=== PATIENT | male | born 1945 | race Caucasian/White ===

== ENCOUNTER 2022-05-17 02:10 | Inpatient (IN) | payer OTHER, SELFPAY ==
[2022-05-17] VITALS (8 sets, daily range): BP systolic 132–159; BP diastolic 66–78; PULSE 82–104; RESP 16–18; TEMP 36.6–37.1; O2SAT 90–100; BMI 30.5; BMI 30.4
--- NOTE | 2022-05-17 02:57 | CT_ITS ---
STUDY: CT BRAIN WITHOUT CONTRAST REASON FOR EXAM: Male, 76 years old. Confusion RADIATION DOSAGE (If Supplied By Facility): CTDIvol = ( 44.99 ) mGy, DLP = ( 829.85 ) mGycm TECHNIQUE: Transaxial CT imaging of the brain was performed without administration of intravenous contrast material. Individualized dose optimization techniques were used for this CT. COMPARISON: No relevant priors. FINDINGS: Normal soft tissue structures. Normal calvarium. There is visualize calcification of the bilateral vertebral arteries. There is calcification of the bilateral cavernous carotid arteries. There is mild cerebral atrophy with widening of the extra-axial spaces and ventricular dilatation. There are areas of decreased attenuation within the white matter tracts of the supratentorial brain, consistent with microvascular disease changes. Normal basal ganglia and thalami. Normal brainstem. There is mild cerebellar atrophy. There is no intracranial hemorrhage. There are no findings of an acute ischemic infarction. Normal visualized paranasal sinuses. CT/Brain/Head without Contrast IMPRESSION: Mild atrophy. No visualized acute hemorrhage infarct or edema. Electronically Signed: Baylee Chang MD at 3:58 EST Reading Location ID and State: [facility] / [place] Tel , Service support ,
[2022-05-17 03:12] LABS: Absolute Neutrophil Count 2.5 X10^3/uL (2.0-7.7); Basophil# 0.03 X10^3/uL; Basophil% 0.8 % (0-1); Eosinophil# 0.09 X10^3/uL; Eosinophils% 2.3 % (0-5); Hematocrit 35.8 % (40-54); Hemoglobin 11.9 g/dL (13.0-16.5); Lymphocyte % 20.4 % (19-41); Mean Corp Hgb Conc 33.2 g/dL (32-36); Mean Corpuscular Volume 93.2 fL (80-94); Mean Platelet Vol. 10.4 fl (6.2-12.0); Monocyte# 0.49 X10^3/uL; Monocyte% 12.5 % (0-10); NRBC Flagged by Analyzer 0 % (0-5); Neutrophil # 2.51 X10^3/uL (2.7-7.7); Neutrophil % 63.7 % (47-70); Platelet Count 140 K/mm3 (150-450); RBC Distribution Width CV 17.2 % (11.6-14.6); RBC Distribution Width SD 57.3 fl (35.1-43.9); Red Blood Count 3.84 M/mm3 (4.6-6.2); White Blood Count 3.9 K/mm3 (4.4-11.0)
[2022-05-17 03:34] LABS: Color, Urine Yellow (Yellow); Glucose, Dipstick 1000 mg/dl (Normal); Ketone-Dipstick 5 mg/dl (Negative); Leukocyte Esterase-Dipstick 25 /ul (Negative); Nitrite-Dipstick Negative (Negative); Occult Blood-Urine 250 /ul (Negative); Protein-Dipstick 30 mg/dl (Negative); Specific Gravity, Urine 1.015 (1.002-1.030); Urine Clarity Clear (Clear); Urine Urobilinogen 4 mg/dl (Normal)
--- NOTE | 2022-05-17 03:37 | RAD_ITS ---
We are attempting to reach an attending provider to discuss findings. An addendum with communication details will be sent when the communication is complete. STUDY: X-RAY CHEST REASON FOR EXAM: Male, 76 years old. Confusion TECHNIQUE: Single AP portable view of the chest. COMPARISON: None. FINDINGS: There is a visualized cavitary lesion in the right upper lobe measuring 2.1 x 2.8 cm. There is eventration of the right hemidiaphragm. There is no demonstrated pleural abnormality. Normal size heart. Normal mediastinum and levon. Normal visualized pulmonary arteries. There is atherosclerotic calcification of the aortic arch with tortuosity. There are diffuse degenerative changes of the visualized thoracic spine. Normal visualized ribs, clavicles, and shoulders. There is no demonstrated abnormality of the visualized soft tissue structures of the upper abdomen. RAD/Chest 1 View (Portable) IMPRESSION: Age-indeterminate and cavitary lesion in the right apex, measuring 2.1 x 2.8 cm. Recommend further evaluation with CT scan of the chest for further evaluation. Electronically Signed: Baylee Chang MD at 3:47 EST Reading Location ID and State: [facility] / [place] Tel , Service support ,
[2022-05-17 03:44] LABS: AST(SGOT) 50 U/L (15-37); Alanine Aminotransfer ALT/SGPT 23 U/L (16-61); Albumin, Serum 2.2 g/dL (3.2-5.0); Alkaline Phosphatase 159 U/L (45-117); Anion Gap 7 (5-15); BUN 15 mg/dL (7-18); BUN/Creat Ratio 18.5 RATIO (10-20); Bilirubin, Direct 0.66 mg/dL (0.00-0.30); Calcium,Total 8.1 mg/dL (8.5-10.1); Chloride 112 mmol/L (98-107); Creatinine, Serum 0.81 mg/dL (0.70-1.30); EST Glomerular Filtration Rate 99 mL/min (>60); Est Glom Filt Rate - Afr Amer 120 mL/min (>60); Estimated Creatinine Clearance 90.42 ml/min; Globulin 4.4 g/dL (2.2-4.2); Glucose 96 mg/dL (74-106); Potassium 3.6 mmol/L (3.5-5.1); Protein, Total 6.6 g/dL (6.4-8.2); Sodium Level 144 mmol/L (136-145); Thyroid Stim Hormone (TSH) 4.49 uIU/mL (0.358-3.74)
[2022-05-17 04:12] LABS: Urine Bilirubin Dipstick 1 mg/dL (Negative)
[2022-05-17 04:13] LABS: Bacteria RARE /hpf (None Seen); Mucous, Urine RARE /hpf (<or=2+); Red Blood Cells-Urine 5-10 SEEN /hpf (0-5); Squamous Epithelial Cells - UA 0-5 SEEN /hpf (0-5); White Blood Cells 0-5 SEEN /hpf (0-5)
--- NOTE | 2022-05-17 04:13 | CT_ITS ---
INDICATION: abnormal cxr EXAMINATION: CT CHEST WITHOUT CONTRAST - CT Chest W/O Contrast Injection TECHNIQUE: Helically acquired images were obtained of the chest. A radiation dose optimization technique was used for this scan. IV Contrast dosage and agent: None. COMPARISON: X-ray chest May 17, 2022 FINDINGS: LUNGS, PLEURA AND LARGE AIRWAYS: There is a visualized rounded appearing focus of calcific plaque within the anterior aspect of the chest which is likely associated with prior injury and/or infection. There is no visualized cavitary mass. No pleural effusion or thickening. No pneumothorax. THYROID: No thyroid lesions. HEART AND PERICARDIUM: There is mild to moderate cardiac enlargement there are coronary calcifications. No pericardial effusion. CORONARY ARTERIES: Coronary artery calcification is seen. VESSELS: Aorta is tortuous partially calcified. MEDIASTINUM AND SHANICE: No mediastinal or hilar adenopathy. There is a mildly thick-walled appearance of the distal esophagus. There is a suggestion of esophageal varices. There is a minimal hiatal hernia. UPPER ABDOMEN: There is visualized cirrhosis of the liver. There is a visualized hips. There is visualized focus of metallic wire-like postoperative change in the mid upper abdomen, this may be associated with an engorged varices . Multiple small gallstones in the gallbladder. There visualized varices within the left upper quadrant. BONES: There is degenerative change in the thoracic spine. CT/Chest without Contrast IMPRESSION: The density seen on the chest x-ray actually represented a rounded appearing pleural plaque. This is a nonacute or benign finding. There is no visualized focal infiltrate. Cardiomegaly coronary disease. Cirrhosis TIPS cholelithiasis. Abdominal varices. Postoperative change in the upper abdomen possibly associated with varices. Recommend correlation with surgical history. Electronically Signed: Baylee Chang MD at 5:21 EST ,
[2022-05-17] MEDS: Lactulose 20 GM/30 ML UDC PO ×3 (04:32→21:06)
--- NOTE | 2022-05-17 05:53 | HP.PCM.HOS_ITS ---
HPI - General General Date of Admission: 05/17/22 Date of Service: 05/17/22 Chief Complaint: altered mental status HPI Narrative BRYSON FLORES, is a 76 M with a PMH as outlined who presents via the ED with a complaint of confusion. He has a history of cirrhosis due to alcohol s/p TIPS procedure. He has stopped drinking. HE recently went on holiday for 5 days and didnt take his meds. His noticed he was getting more confused, so she brought him to the ED. HE denied any fever, chills, cough, chest pain, palpitations, dizziness, nausea, vomiting or diarrhea. REview of systems is otherwise negative. Vitals were temp of 98.7F, FL of 89, RR of 16 and BP of 154/78. He was saturating at 98% on room air. CBC showed hb of 11.9, wbc of 3.9 and platelets of 140. Chemistry was significant for total bilirubin of 1.6, ammonia of 156 and ALP of 159, with AST of 50. TSH was 4.49. Urinalysis showed no evidence of UTI with negative bacteria and wbc. CT of the brain showed mild atrophy with no visualised acute hemorrhage, infarct or edema. CXR showed age indeterminate cavitary lesion in the right apex, measuring 2.1 x 2.8cm; CT chest showed a rounded appearing pleural plaque and cardiomegaly as well as abdominal ascites. He is being admitted to be managed for acute metabolic encephalopathy due to hepatic encephalopathy from noncompliance. [facility] Medical History (Updated 05/17/22 @ 06:[address] Sia Hardy MD) Cirrhosis DVT (deep venous thrombosis) GERD (gastroesophageal reflux disease) GI bleed Home Medications empagliflozin 25 mg tablet (Jardiance) 25 mg PO DAILY 05/17/22 [History Last Taken Unknown] furosemide 40 mg tablet 40 mg PO DAILY 05/17/22 [History Last Taken Unknown] gemfibrozil 600 mg tablet 600 mg PO DAILY 05/17/22 [History Last Taken Unknown] lactulose 10 gram/15 mL oral solution 30 ml PO DAILY 05/17/22 [History Last Taken Unknown] multivitamin with iron-mineral 1 tab PO DAILY 05/17/22 [History Last Taken Unknown] spironolactone 100 mg tablet 100 mg PO DAILY 05/17/22 [History Last Taken Unknow n] turmeric 400 mg capsule 400 mg PO DAILY 05/17/22 [History Last Taken Unknown] vit C 250 mg-E 90 mg-zinc 40 mg-copper 1 [id number] chew tablet (PreserVision AREDS-2) 1 tab PO DAILY 05/17/22 [History Last Taken Unknown] zinc 50 mg tablet 50 mg PO DAILY 05/17/22 [History Last Taken Unknown] Allergy/AdvReac Type Severity Reaction Status Date / Time No Known Allergies Allergy Verified 05/17/22 02:15 Social History Smoking Status: Never smoker ROS ROS Narrative mainly obtained from significant other Review of Systems ROS Unobtainable: due to encephalopathy Constitutional Constitutional: Reports fatigue, malaise and weakness; Denies anorexia, chills or fever(s) Eyes Eyes: Denies change in vision ENT HEENT: Denies dysphagia, headache(s), nasal discharge or sore throat Cardiovascular Cardiovascular: Denies chest pain, dyspnea on exertion, edema, lightheadedness, orthopnea, palpitations, rapid heart rate or syncope Respiratory/Chest Respiratory/Chest: Denies cough, dyspnea, productive cough, shortness of breath at rest, shortness of breath with exertion or wheezing Gastrointestinal Gastrointestinal: Denies abdominal pain, constipation, diarrhea, nausea or vomiting Genitourinary Genitourinary: Denies difficulty urinating, dysuria or urinary urgency Musculoskeletal Musculoskeletal: Denies arthralgias Neurologic Neurologic: Reports confusion; Denies dizziness, focal weakness, headache(s), numbness, seizure-like activity, seizures or syncope Psychiatric Psychiatric: Reports depression; Denies anxiety Endocrine Endocrinology: Denies change in body appearance Hematologic/Lymphatic Hematologic/Lymphatic: Denies anemia Vital Signs Vital Signs Vital Signs: 05/17/22 02:12 05/17/22 04:11 Temperature 98.7 F Temperature Source Temporal Pulse Rate 89 Respiratory Rate 16 Blood Pressure 154/78 H Blood Pressure Mean 103 Pulse Ox 90 98 Oxygen Delivery Method Room Air Room Air Weight Weight: 231 lb 7.766 oz Body Mass Index (BMI) 30.5 Physical Exam Const alert Constitutional Narrative: confused Orientation / Consciousness: confused HEENT normocephalic, head/scalp atraumatic, hearing grossly normal bilaterally and moist oral mucous membranes Mouth: oral and palatal mucosa normal Eyes PERRL, EOMs intact bilaterally and conjunctivae normal Neck no lymphadenopathy, supple and no JVD Resp normal respiratory effort, no retractions, no use of accessory muscles and clear to auscultation bilaterally Cardio regular rate, regular rhythm, S1 normal heart sound, S2 normal heart sound and no murmurs GI GI Narrative: abdomen distended, nontender, positive fluid thrill, no organomegaly. Extremity normal to inspection, full ROM and no clubbing, cyanosis or edema Neuro Neuro Narrative: confused, moves all extremities. Oriented to self only. Positive hepatic flap of upper extremities Sensorium / Orientation: awake Psych Psych Narrative: confused Results Lab / Micro Data Result Diagrams: 05/17/22 02:40 05/17/22 02:40 Labs: Laboratory Results - last 24 hr 05/17/22 02:40: WBC 3.9 L, RBC 3.84 L, Hgb 11.9 L, Hct 35.8 L, MCV 93.2, MCH 31.0, MCHC 33.2, RDW Std Deviation 57.3 H, RDW Coeff of Vicky 17.2 H, Plt Count 140 L, MPV 10.4, Immature Gran % (Auto) 0.300, Neut % (Auto) 63.7, Lymph % (Auto) 20.4, [place] % (Auto) 12.5 H, Eos % (Auto) 2.3, Baso % (Auto) 0.8, Absolute Neuts (auto) 2.5, Absolute Lymphs (auto) 0.80 L, Nucleated RBC % 0 05/17/22 02:40: Sodium 144, Potassium 3.6, Chloride 112 H, Carbon Dioxide 25.0, Anion Gap 7, BUN 15, Creatinine 0.81, Estim Creat Clear Calc 90.42, Est GFR (MDRD) Af Amer 120, Est GFR (MDRD) Non-Af 99, BUN/Creatinine Ratio 18.5, Glucose 96, Calcium 8.1 L, Total Bilirubin 1.40 H, Direct Bilirubin 0.66 H, AST 50 H, ALT 23, Alkaline Phosphatase 159 H, Total Protein 6.6, Albumin 2.2 L, Globulin 4.4 H, TSH 4.49 H 05/17/22 02:40: Ammonia 156.0 H 05/17/22 03:26: Urine Color Yellow, Urine Clarity Clear, Urine pH 6.0, Ur Specific [place] 1.015, Urine Protein 30 H, Urine Glucose (UA) 1000 H, Urine Ketones 5 H, Urine Occult Blood 250 H, Urine Nitrite Negative, Urine Bilirubin 1 H, Urine Urobilinogen 4 H, Ur Leukocyte Esterase 25 H, Urine RBC 5-10 SEEN, Urine WBC 0-5 SEEN, Ur Squamous Epith Cells 0-5 SEEN, Urine Bacteria RARE, Urine Mucus RARE Micro: Microbiology 05/17/22 03:26 Nasal Secretion SARS-CoV-2 Antigen (Rapid) - Final Radiology Impression Brain CT 05/17/22 02:57 IMPRESSION: Mild atrophy. No visualized acute hemorrhage infarct or edema. Electronically Signed: Baylee Chang MD at 3:58 EST , Chest X-Ray 05/17/22 03:37 IMPRESSION: Age-indeterminate and cavitary lesion in the right apex, measuring 2.1 x 2.8 cm. Recommend further evaluation with CT scan of the chest for further evaluation. Electronically Signed: Baylee Chang MD at 3:47 EST , ADDENDUM: 05/17/22 0406 IMPRESSION: Age-indeterminate and cavitary lesion in the right apex, measuring 2.1 x 2.8 cm. Recommend further evaluation with CT scan of the chest for further evaluation. N.B. : The above Results were Read Back by Baylee Chang MD to Mateo Geronimo MD, and understanding confirmed on 05/17/2022 04:00:03 (ET). Electronically Signed: Baylee Chang MD at 3:47 EST , Chest CT 05/17/22 04:13 IMPRESSION: The density seen on the chest x-ray actually represented a rounded appearing pleural plaque. This is a nonacute or benign finding. There is no visualized focal infiltrate. Cardiomegaly coronary disease. Cirrhosis TIPS cholelithiasis. Abdominal varices. Postoperative change in the upper abdomen possibly associated with varices. Recommend correlation with surgical history. Electronically Signed: Baylee Chang MD at 5:21 EST , Assessment & Plan Assessment/Plan (1) Hepatic encephalopathy: PLAN: Plan #Acute hepatic encephalopathy * likely due to noncompliance with meds * has history of alcoholic liver cirrhosis s/p TIPS * went on holiday and didnt take his meds for ~ 5 days * ammonia level elevated at 156 * ct of the brain showed no acute intracranial pathology * place on lactulose and titrate until 2-3 loose stolols daily * on spironolactone and furosemide; will continue * PT/OT consult. Fall precautions * * #Alcoholic liver cirrhosis * s/p TIPS. Currently doesnt drink * on spironolactone and lasix * also on lactulose, as above * #?Heart failure: * not in exacerbation. * says he became edematous and was started on Jardiance due to concerns about heart failure. * also on furosemide and spironolactone * EF unknown. Usually follows up at the [facility]. #THrombocytopenia * platelets are 140;' baseline not available * likely due to alcoholic liver disease * will monitor * * DVT prophylaxis: SCDs Code status: full code * Patient's significant other counseled extensively about different types of CODE STATUS including full code, DNR CCA and DNR CCA. * She elects for patient elects to be full code. * Total [id number] time 17 minutes. Charges/Coding Visit Charges Inpatient E&M: 75026 Init Hosp L3 Procedures Hospitalists Procedures: 96853 Advncd Care Plan 30 Min
--- NOTE | 2022-05-17 06:05 | EX.ED.DYSGE1 ---
HPI History of Present Illness Chief Complaint: Confusion Narrative Narrative: Patient is a 76-year-old male with past medical history of alcohol abuse as well as cirrhosis and previous GI bleed requiring TIPS procedure. brought him in stating that over the past 24 hours he has been having increasing confusion. She states they were recently on vacation for 5 days and he did not take his medication as he is prescribed. She reports that he is also been constipated and with his increased confusion coupled with the fact he did not take his medications as directed on vacation she is concerned about his ammonia level being elevated and therefore brings him in for evaluation. Based on the patient's confusion he cannot provide any further history [facility] Medical History (Updated 05/17/22 @ 06:[address] Sia Hardy MD) Cirrhosis DVT (deep venous thrombosis) GERD (gastroesophageal reflux disease) GI bleed Home Medications empagliflozin 25 mg tablet (Jardiance) 25 mg PO DAILY 05/17/22 [History Last Taken Unknown] furosemide 40 mg tablet 40 mg PO DAILY 05/17/22 [History Last Taken Unknown] gemfibrozil 600 mg tablet 600 mg PO DAILY 05/17/22 [History Last Taken Unknown] lactulose 10 gram/15 mL oral solution 30 ml PO DAILY 05/17/22 [History Last Taken Unknown] multivitamin with iron-mineral 1 tab PO DAILY 05/17/22 [History Last Taken Unknown] spironolactone 100 mg tablet 100 mg PO DAILY 05/17/22 [History Last Taken Unknown] turmeric 400 mg capsule 400 mg PO DAILY 05/17/22 [History Last Taken Unknown] vit C 250 mg-E 90 mg-zinc 40 mg-copper 1 [id number] chew tablet (PreserVision AREDS-2) 1 tab PO DAILY 05/17/22 [History Last Taken Unknown] zinc 50 mg tablet 50 mg PO DAILY 05/17/22 [History Last Taken Unknown] Allergy/AdvReac Type Severity Reaction Status Date / Time No Known Allergies Allergy Verified 05/17/22 02:15 Social History Smoking Status: Never smoker ROS ROS ED ROS Narrative Please note review of systems may be unreliable secondary to patient's confusion Constitutional Constitutional ED: Denies chills or fever(s) Eyes Eyes: Denies change in vision ENT ENT ED: Denies sore throat Cardiovascular Cardiovascular: Denies chest pain Respiratory/Chest Respiratory/Chest: Denies cough or dyspnea Gastrointestinal Gastrointestinal: Reports constipation; Denies abdominal pain, diarrhea, nausea or vomiting Genitourinary Genitourinary ED: Denies dysuria Musculoskeletal Musculoskeletal: Denies myalgias Integumentary Denies rash Neurologic Neurologic: Denies headache(s) Hematologic/Lymphatic Hematologic/Lymphatic: Reports easy bleeding and easy bruising EXAM Physical Exam Const Vital Signs: 05/17/22 02:12 05/17/22 04:11 Temperature 98.7 F Temperature Source Temporal Pulse Rate 89 Respiratory Rate 16 Blood Pressure 154/78 H Blood Pressure Mean 103 Pulse Ox 90 98 Oxygen Delivery Method Room Air Room Air Positive well nourished and well developed General Appearance ED: well developed HEENT Reports dry mucous membranes Mouth ED: Yes dry mucous membranes Mouth: dry mucous membranes Eyes PERRL and EOMs intact bilaterally General Eye ED: Negative for scleral icterus Neck supple Neck Narrative: No nuchal rigidity or meningeal signs present Chest Wall palpation of chest normal Resp normal respiratory effort and clear to auscultation bilaterally Cardio regular rate and regular rhythm Rate: other Other Details: Radial pulses are plus 2 out of 4 bilaterally are equal and symmetric GI normal to inspection, nondistended, normoactive bowel sounds, non-tender, non-distended and no masses GI Narrative: No voluntary guarding or rigidity no pulsatile mass Auscultation: normoactive bowel sounds Palpation: soft Extremity normal to inspection Neuro Neuro Narrative: Patient is awake and alert. However he does not know his birthdate or the year or where he is at. Otherwise there is no obvious focal neurologic deficit no pronator drift no dysmetria or truncal ataxia. Patient is able to name his as well as simple objects such as a clock or pen. He received an NIH stroke scale score of 2 secondary to his confusion regarding his birthdate and location. Psych Psych Narrative: Patient has a flat affect Skin no rashes or lesions noted General Skin Exam: Negative for jaundice MDM MDM MDM Narrative Medical decision making narrative: Patient presented to the ER slightly hypertensive but otherwise with stable vitals. reported confusion that have been ongoing for approximately 24 hours which places him outside any type of stroke window. Moreover he received a stroke scale score of 2 for confusion but otherwise there is no focal deficit and his history indicates this is most likely cirrhotic in nature and therefore I felt no need to activate a stroke alert. A basic work-up was obtained which showed an ammonia level of 156 consistent with his history and symptoms. His chest x-ray questioned a new cavitary lesion so a noncontrast CT was obtained which revealed this is a pleural plaque and this does not need to be followed. On reevaluation the patient is still confused and in this case with his elevated ammonia level will need to have a few days of lactulose to ensure his symptoms are improving. [facility] so [facility] were [facility] and recommend patient be kept at our facility. This was discussed with the patient and and they are agreeable to it. Therefore medicine was contacted and will accept the patient at this time for further treatment of his hyperammonemia Lab Data Attestation: I reviewed the patient's lab results. Labs: Laboratory Results - last 24 hr 05/17/22 05/17/22 05/17/22 02:40 02:40 02:40 WBC 3.9 L RBC 3.84 L Hgb 11.9 L Hct 35.8 L MCV 93.2 MCH 31.0 MCHC 33.2 RDW Std Deviation 57.3 H RDW Coeff of Vicky 17.2 H Plt Count 140 L MPV 10.4 Immature Gran % (Auto) 0.300 Neut % (Auto) 63.7 Lymph % (Auto) 20.4 [place] % (Auto) 12.5 H Eos % (Auto) 2.3 Baso % (Auto) 0.8 Absolute Neuts (auto) 2.5 Absolute Lymphs (auto) 0.80 L Nucleated RBC % 0 Sodium 144 Potassium 3.6 Chloride 112 H Carbon Dioxide 25.0 Anion Gap 7 BUN 15 Creatinine 0.81 Estim Creat Clear Calc 90.42 Est GFR (MDRD) Af Amer 120 Est GFR (MDRD) Non-Af 99 BUN/Creatinine Ratio 18.5 Glucose 96 Calcium 8.1 L Total Bilirubin 1.40 H Direct Bilirubin 0.66 H AST 50 H ALT 23 Alkaline Phosphatase 159 H Ammonia 156.0 H Total Protein 6.6 Albumin 2.2 L Globulin 4.4 H TSH 4.49 H Urine Color Urine Clarity Urine pH Ur Specific [place] Urine Protein Urine Glucose (UA) Urine Ketones Urine Occult Blood Urine Nitrite Urine Bilirubin Urine Urobilinogen Ur Leukocyte Esterase Urine RBC Urine WBC Ur Squamous Epith Cells Urine Bacteria Urine Mucus 05/17/22 03:26 WBC RBC Hgb Hct MCV MCH MCHC RDW Std Deviation RDW Coeff of Vicky Plt Count MPV Immature Gran % (Auto) Neut % (Auto) Lymph % (Auto) [place] % (Auto) Eos % (Auto) Baso % (Auto) Absolute Neuts (auto) Absolute Lymphs (auto) Nucleated RBC % Sodium Potassium Chloride Carbon Dioxide Anion Gap BUN Creatinine Estim Creat Clear Calc Est GFR (MDRD) Af Amer Est GFR (MDRD) Non-Af BUN/Creatinine Ratio Glucose Calcium Total Bilirubin Direct Bilirubin AST ALT Alkaline Phosphatase Ammonia Total Protein Albumin Globulin TSH Urine Color Yellow Urine Clarity Clear Urine pH 6.0 Ur Specific [place] 1.015 Urine Protein 30 H Urine Glucose (UA) 1000 H Urine Ketones 5 H Urine Occult Blood 250 H Urine Nitrite Negative Urine Bilirubin 1 H Urine Urobilinogen 4 H Ur Leukocyte Esterase 25 H Urine RBC 5-10 SEEN Urine WBC 0-5 SEEN Ur Squamous Epith Cells 0-5 SEEN Urine Bacteria RARE Urine Mucus RARE Radiography Diagnostic Testing: Clinical Impression(s) from Imaging Studies Brain CT 05/17/22 02:57 IMPRESSION: Mild atrophy. No visualized acute hemorrhage infarct or edema. Electronically Signed: Baylee Chang MD at 3:58 EST , Chest X-Ray 05/17/22 03:37 IMPRESSION: Age-indeterminate and cavitary lesion in the right apex, measuring 2.1 x 2.8 cm. Recommend further evaluation with CT scan of the chest for further evaluation. Electronically Signed: Baylee Chang MD at 3:47 EST , ADDENDUM: 05/17/22 0406 IMPRESSION: Age-indeterminate and cavitary lesion in the right apex, measuring 2.1 x 2.8 cm. Recommend further evaluation with CT scan of the chest for further evaluation. N.B. : The above Results were Read Back by Baylee Chang MD to Mateo Geronimo MD, and understanding confirmed on 05/17/2022 04:00:03 (ET). Electronically Signed: Baylee Chang MD at 3:47 EST , Chest CT 05/17/22 04:13 IMPRESSION: The density seen on the chest x-ray actually represented a rounded appearing pleural plaque. This is a nonacute or benign finding. There is no visualized focal infiltrate. Cardiomegaly coronary disease. Cirrhosis TIPS cholelithiasis. Abdominal varices. Postoperative change in the upper abdomen possibly associated with varices. Recommend correlation with surgical history. Electronically Signed: Baylee Chang MD at 5:21 EST , Chest x-ray as interpreted by the emergency medicine physician reveals a approximately 2 cm lesion in the right upper lung field which is indeterminate in nature without acute infiltrate pneumothorax or pleural effusion Discharge Plan Triage Chief Complaint: Confusion ED Provider: Mateo Geronimo Dx/Rx/DC Orders Prescriptions: No Action furosemide 40 mg Tablet 40 mg PO DAILY spironolactone 100 mg Tablet 100 mg PO DAILY gemfibrozil 600 mg Tablet 600 mg PO DAILY zinc 50 mg Tablet 50 mg PO DAILY Multi M Vitamin Tablet 1 tab PO DAILY lactulose 10 gram/15 mL Solution 30 ml PO DAILY Jardiance 25 mg Tablet 25 mg PO DAILY turmeric 400 mg Capsule 400 mg PO DAILY PreserVision AREDS-2 250-90-40-1 mg Tablet,Chewable 1 tab PO DAILY [facility] Provider[facility] [facility] [Primary Care Provider] - Disposition Disposition: Acute Care Hospital [facility]
--- NOTE | 2022-05-17 07:04 | NURSING ---
324 koram hyperammonemia, confusion
[2022-05-17] MEDS: Multivitamins,Ther W-Minerals Tablet 1 TABLET PO (08:15)
[2022-05-17] MEDS: Empagliflozin 25 MG Tablet PO (08:15)
[2022-05-17] MEDS: Furosemide 40 MG Tablet PO (08:16)
[2022-05-17] MEDS: Multivitamin (Healthy Eyes) Capsule 1 CAP PO (08:16)
--- NOTE | 2022-05-17 09:23 | PN.HOSP_ITS ---
Subjective Subjective Follow-up acute hepatic encephalopathy Patient is a 76-year-old gentleman with history of cirrhosis of the liver status post TIPS procedure presented to the emergency department with confusion. An assessment of acute hepatic encephalopathy made admitted to regular nursing floor for further management Objective Data Objective Data Vital Signs: Vital Signs Temp Pulse Resp BP Pulse Ox O2 Del Method 97.9 F 94 18 132/66 H 95 Room Air 05/17/22 06:58 05/17/22 06:58 05/17/22 08:00 05/17/22 06:58 05/17/22 06:58 05/17/22 08:00 Oxygen Delivery Method Room Air Weight: 104.3 kg Body Mass Index (BMI) 30.4 Lab / Micro Data Result Diagrams: 05/17/22 02:40 05/17/22 02:40 Labs: Laboratory Results - last 24 hr 05/17/22 02:40: WBC 3.9 L, RBC 3.84 L, Hgb 11.9 L, Hct 35.8 L, MCV 93.2, MCH 31.0, MCHC 33.2, RDW Std Deviation 57.3 H, RDW Coeff of Vicky 17.2 H, Plt Count 140 L, MPV 10.4, Immature Gran % (Auto) 0.300, Neut % (Auto) 63.7, Lymph % (Auto) 20.4, [place] % (Auto) 12.5 H, Eos % (Auto) 2.3, Baso % (Auto) 0.8, Absolute Neuts (auto) 2.5, Absolute Lymphs (auto) 0.80 L, Nucleated RBC % 0 05/17/22 02:40: Sodium 144, Potassium 3.6, Chloride 112 H, Carbon Dioxide 25.0, Anion Gap 7, BUN 15, Creatinine 0.81, Estim Creat Clear Calc 90.42, Est GFR (MDRD) Af Amer 120, Est GFR (MDRD) Non-Af 99, BUN/Creatinine Ratio 18.5, Glucose 96, Calcium 8.1 L, Total Bilirubin 1.40 H, Direct Bilirubin 0.66 H, AST 50 H, ALT 23, Alkaline Phosphatase 159 H, Total Protein 6.6, Albumin 2.2 L, Globulin 4.4 H, TSH 4.49 H 05/17/22 02:40: Ammonia 156.0 H 05/17/22 03:26: Urine Color Yellow, Urine Clarity Clear, Urine pH 6.0, Ur Specific [place] 1.015, Urine Protein 30 H, Urine Glucose (UA) 1000 H, Urine Ketones 5 H, Urine Occult Blood 250 H, Urine Nitrite Negative, Urine Bilirubin 1 H, Urine Urobilinogen 4 H, Ur Leukocyte Esterase 25 H, Urine RBC 5-10 SEEN, Urine WBC 0-5 SEEN, Ur Squamous Epith Cells 0-5 SEEN, Urine Bacteria RARE, Urine Mucus RARE Micro: Microbiology 05/17/22 03:26 Nasal Secretion SARS-CoV-2 Antigen (Rapid) - Final Radiography Diagnostic Testing: Radiology Impression Brain CT 05/17/22 02:57 IMPRESSION: Mild atrophy. No visualized acute hemorrhage infarct or edema. Electronically Signed: Baylee Chang MD at 3:58 EST , Chest X-Ray 05/17/22 03:37 IMPRESSION: Age-indeterminate and cavitary lesion in the right apex, measuring 2.1 x 2.8 cm. Recommend further evaluation with CT scan of the chest for further evaluation. Electronically Signed: Baylee Chang MD at 3:47 EST , ADDENDUM: 05/17/22 0406 IMPRESSION: Age-indeterminate and cavitary lesion in the right apex, measuring 2.1 x 2.8 cm. Recommend further evaluation with CT scan of the chest for further evaluation. N.B. : The above Results were Read Back by Baylee Chang MD to Mateo Geronimo MD, and understanding confirmed on 05/17/2022 04:00:03 (ET). Electronically Signed: Baylee Chang MD at 3:47 EST , Chest CT 05/17/22 04:13 IMPRESSION: The density seen on the chest x-ray actually represented a rounded appearing pleural plaque. This is a nonacute or benign finding. There is no visualized focal infiltrate. Cardiomegaly coronary disease. Cirrhosis TIPS cholelithiasis. Abdominal varices. Postoperative change in the upper abdomen possibly associated with varices. Recommend correlation with surgical history. Electronically Signed: Baylee Chang MD at 5:21 EST , Physical Exam Narrative GENERAL: cooperative HEENT: Atraumatic; normocephalic EYES; Anicteric, Normal Conjunctiva NECK; supple, normal thyroid, RESPIRATORY: Diminished to auscultation CARDIOVASCULAR: Regular S1 S2, GI: soft, normoactive bowel sounds, : No Renal angle tenderness; EXTREMITIES: No edema, no clubbing, MUSCULOSKELETAL: no muscle wasting NEURO: Awake; no lateralizing signs. SKIN: No Rash PSYCH; Flat affect Assessment & Plan Assessment/Plan (1) Hepatic encephalopathy: PLAN: Plan Patient is a 76-year-old gentleman with history of cirrhosis of the liver status post TIPS procedure presented to the emergency department with confusion. An assessment of acute hepatic encephalopathy made admitted to regular nursing floor for further management 1. Acute hepatic encephalopathy in a patient with alcoholic liver cirrhosis ? Secondary to noncompliance patient admitted to regular nursing floor managed with lactulose, Aldactone as well as furosemide 2. Alcoholic cirrhosis of the liver ? Status post TIPS procedure patient presented with acute hepatic encephalopathy management as discussed above 3. Thrombocytopenia ? Secondary to alcoholic liver cirrhosis monitoring with daily CBC 4. 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 Patient is on Jardiance in addition to Aldactone as well as furosemide currently compensated 5. DVT prophylaxis ? Bilateral SCDs Time spent in the patient's overall evaluation,decision-making process, review of diagnostic data, adjustment of management, discussion with other providers, nursing nursing and ancillary staff involved in patient's care documentation, 38 Minutes Charges/Coding Visit Charges Inpatient E&M: 63997 Subs Hosp L2
[2022-05-17] MEDS: Spironolactone 50 MG Tablet 100 MG PO (10:32)
--- NOTE | 2022-05-17 12:00 | CASEMGMT ---
TARA HOLLIS DC Planning Assessment: Face to Face with for initial care coordination/dc planning. TARA HOLLIS introduced self and role at [facility]. Pt voiced understanding. Pt sitting up in chair, alert and oriented x4. Pt agreeable to participating in assessment. Care providers, pharmacy, and demographics verified. Admission dx: Hepatic encephalopathy PCP: [place] Specialists: poolroom table attendant at the OR Insurance: OR, also has [facility] w/prescription benefit Preferred pharmacy: [place], denies any local pharmacies Living Will/HPOA: none LNOK: Sister Georgette, has 4 children but they do not speak. María, S.O. Living arrangements: pt lives with his S.O. in a single story home without steps to enter. Pt states he is independent with ADLs including household tasks. Transportation: pt drives and S.O. also drives DME: grab bars, hand held shower. Pt denies using any assistive devices with ambulation SNF/HHC: denies any previous providers. Plan: pt states he plans to return home with the assistance of his S.O. PT/OT evaluations pending. Will continue to monitor and assist with dc needs as identified. Pt states if a bed were to become available and the OR requests he transfer to the OR, he is agreeable. Wellington Szymanski RN CM
[2022-05-17] MEDS: Gemfibrozil 600 MG Tablet PO (16:53)
[2022-05-17] MEDS: MELATONIN 3 MG TABLET PO (23:01)
[2022-05-18 01:30] VITALS: BP 136/60; PULSE 97; RESP 16; TEMP 37.2; O2SAT 98
[2022-05-18] MEDS: Lactulose 20 GM/30 ML UDC PO ×3 (06:28→21:11)
[2022-05-18 06:51] LABS: Absolute Lymphocyte Count 1.26 X10^3/uL (0.83-4.51); Absolute Neutrophil Count 2.7 X10^3/uL (2.0-7.7); Basophil# 0.04 X10^3/uL; Basophil% 0.9 % (0-1); Eosinophil# 0.12 X10^3/uL; Eosinophils% 2.6 % (0-5); Hematocrit 32.6 % (40-54); Hemoglobin 10.7 g/dL (13.0-16.5); Lymphocyte # 1.26 X10^3/ul (0.83-4.51); Lymphocyte % 26.8 % (19-41); Mean Corp Hgb Conc 32.8 g/dL (32-36); Mean Corpuscular Hgb 29.8 pg (27.0-32.0); Mean Corpuscular Volume 90.8 fL (80-94); Mean Platelet Vol. 9.6 fl (6.2-12.0); Monocyte# 0.57 X10^3/uL; Monocyte% 12.1 % (0-10); NRBC Flagged by Analyzer 0 % (0-5); Neutrophil # 2.69 X10^3/uL (2.7-7.7); Neutrophil % 57.2 % (47-70); Platelet Count 126 K/mm3 (150-450); RBC Distribution Width CV 17.1 % (11.6-14.6); RBC Distribution Width SD 57.3 fl (35.1-43.9); Red Blood Count 3.59 M/mm3 (4.6-6.2); White Blood Count 4.7 K/mm3 (4.4-11.0)
[2022-05-18 07:30] VITALS: BP 142/69; PULSE 93; RESP 18; TEMP 37.1; O2SAT 95
[2022-05-18] MEDS: Multivitamins,Ther W-Minerals Tablet 1 TABLET PO (07:33)
--- NOTE | 2022-05-18 07:35 | PCM.PN.HOSP ---
Subjective Subjective Low up hepatic encephalopathy Patient seen back to baseline diagnostic data reviewed significant for ammonia 53 potassium 3.4. Plan is for patient to be assessed for possible discharge Objective Data Objective Data Vital Signs: Vital Signs Temp Pulse Resp BP Pulse Ox O2 Del Method 98.7 F 93 18 142/69 H 95 Room Air 05/18/22 07:30 05/18/22 07:30 05/18/22 07:30 05/18/22 07:30 05/18/22 07:30 05/18/22 07:30 Oxygen Delivery Method Room Air Weight: 104.3 kg Body Mass Index (BMI) 30.4 Intake & Output: Intake and Output for Last 24 Hours 05/16/22 05/17/22 05/18/22 23:59 23:59 23:59 Intake Total 750 / 750 Balance 750 / 750 Lab / Micro Data Result Diagrams: 05/18/22 06:45 05/18/22 06:45 Labs: Laboratory Results - last 24 hr 05/18/22 06:45: WBC 4.7, RBC 3.59 L, Hgb 10.7 L, Hct 32.6 L, MCV 90.8, MCH 29.8, MCHC 32.8, RDW Std Deviation 57.3 H, RDW Coeff of Vicky 17.1 H, Plt Count 126 L, MPV 9.6, Immature Gran % (Auto) 0.400, Neut % (Auto) 57.2, Lymph % (Auto) 26.8, [place] % (Auto) 12.1 H, Eos % (Auto) 2.6, Baso % (Auto) 0.9, Absolute Neuts (auto) 2.7, Absolute Lymphs (auto) 1.26, Nucleated RBC % 0 Micro: Microbiology 05/17/22 03:26 Nasal Secretion SARS-CoV-2 Antigen (Rapid) - Final Physical Exam Narrative GENERAL: cooperative HEENT: Atraumatic; normocephalic EYES; Anicteric, Normal Conjunctiva NECK; supple, normal thyroid, RESPIRATORY: Diminished to auscultation CARDIOVASCULAR: Regular S1 S2, GI: soft, normoactive bowel sounds, : No Renal angle tenderness; EXTREMITIES: No edema, no clubbing, MUSCULOSKELETAL: no muscle wasting NEURO: Awake; no lateralizing signs. SKIN: No Rash PSYCH; Flat affect Assessment & Plan Assessment/Plan (1) Hepatic encephalopathy: PLAN: Plan Patient is a 76-year-old gentleman with history of cirrhosis of the liver status post TIPS procedure presented to the emergency department with confusion. An assessment of acute hepatic encephalopathy made admitted to regular nursing floor for further management 1. Acute hepatic encephalopathy in a patient with alcoholic liver cirrhosis ? Secondary to noncompliance patient admitted to regular nursing floor managed with lactulose, Aldactone as well as furosemide -05/18/2022:Patient seen back to baseline diagnostic data reviewed significant for ammonia 53 potassium 3.4. Plan is for patient to be assessed for possible disch 2. Alcoholic cirrhosis of the liver ? Status post TIPS procedure patient presented with acute hepatic encephalopathy management as discussed above 3. Thrombocytopenia ? Secondary to alcoholic liver cirrhosis monitoring with daily CBC 4. 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 Patient is on Jardiance in addition to Aldactone as well as furosemide currently compensated 5. DVT prophylaxis ? Bilateral SCDs Time spent in the patient's overall evaluation,decision-making process, review of diagnostic data, adjustment of management, discussion with other providers, nursing nursing and ancillary staff involved in patient's care documentation, 38 Minutes Charges/Coding Visit Charges Inpatient E&M: 43420 Subs Hosp L2
[2022-05-18 07:36] LABS: ALB/GLOB Ratio 0.5 RATIO (0.9-2.4); AST(SGOT) 51 U/L (15-37); Alanine Aminotransfer ALT/SGPT 22 U/L (16-61); Alkaline Phosphatase 126 U/L (45-117); Anion Gap 7 (5-15); BUN 14 mg/dL (7-18); BUN/Creat Ratio 21.1 RATIO (10-20); Calcium,Total 8.2 mg/dL (8.5-10.1); Chloride 109 mmol/L (98-107); Creatinine, Serum 0.66 mg/dL (0.70-1.30); EST Glomerular Filtration Rate 124 mL/min (>60); Est Glom Filt Rate - Afr Amer 150 mL/min (>60); Estimated Creatinine Clearance 71.13 ml/min; Globulin 3.7 g/dL (2.2-4.2); Glucose 80 mg/dL (74-106); Potassium 3.4 mmol/L (3.5-5.1); Protein, Total 5.7 g/dL (6.4-8.2); Sodium Level 139 mmol/L (136-145)
[2022-05-18] MEDS: Spironolactone 50 MG Tablet 100 MG PO (11:03)
[2022-05-18] MEDS: Potassium Chloride Oral Tablet 20 MEQ 40 MEQ PO (11:03)
[2022-05-18] MEDS: Furosemide 40 MG Tablet PO (11:04)
[2022-05-18] MEDS: Empagliflozin 25 MG Tablet PO (11:04)
[2022-05-18] MEDS: Multivitamin (Healthy Eyes) Capsule 1 CAP PO (11:04)
[2022-05-18 11:09] VITALS: RESP 18
[2022-05-18] MEDS: Gemfibrozil 600 MG Tablet PO (15:44)
[2022-05-18 15:46] VITALS: BP 118/56; PULSE 87; RESP 18; TEMP 37; O2SAT 98
[2022-05-18 15:48] VITALS: RESP 18
[2022-05-18 21:45] VITALS: BP 113/62; PULSE 80; RESP 18; TEMP 36.8; O2SAT 97
[2022-05-19] MEDS: MELATONIN 3 MG TABLET PO (00:02)
[2022-05-19 05:40] VITALS: BP 123/55; PULSE 77; RESP 16; TEMP 36.9; O2SAT 94
[2022-05-19] MEDS: Lactulose 20 GM/30 ML UDC PO (05:54)
[2022-05-19] MEDS: Empagliflozin 25 MG Tablet PO (08:18)
[2022-05-19] MEDS: Spironolactone 50 MG Tablet 100 MG PO (08:18)
[2022-05-19] MEDS: Furosemide 40 MG Tablet PO (08:18)
[2022-05-19] MEDS: Multivitamins,Ther W-Minerals Tablet 1 TABLET PO (08:18)
[2022-05-19] MEDS: Multivitamin (Healthy Eyes) Capsule 1 CAP PO (08:18)
--- NOTE | 2022-05-19 08:51 | PCM.PN.HOSP ---
Subjective Subjective Feels better back to normal. States that he with scaling back his lactulose medications while he was on a trip down to [place]. Stated that he did not want to bowel movements have frequently while he was on his trip. Never had any bouts of hepatic encephalopathy before. Objective Data Objective Data Vital Signs: Vital Signs Temp Pulse Resp BP Pulse Ox O2 Del Method 36.9 C 77 16 123/55 H 94 Room Air 05/19/22 05:40 05/19/22 05:40 05/19/22 05:40 05/19/22 05:40 05/19/22 05:40 05/19/22 08:33 Oxygen Delivery Method Room Air Weight: 104.3 kg Body Mass Index (BMI) 30.4 Intake & Output: Intake and Output for Last 24 Hours 05/17/22 05/18/22 05/19/22 23:59 23:59 23:59 Intake Total 750 / 750 1999 Balance 750 / 750 1999 Lab / Micro Data Result Diagrams: 05/18/22 06:45 05/18/22 06:45 Labs: Laboratory Results - last 24 hr 05/18/22 08:31: Ammonia 52.0 H Micro: Microbiology 05/17/22 03:26 Nasal Secretion SARS-CoV-2 Antigen (Rapid) - Final Physical Exam Const alert and no apparent distress Resp normal respiratory effort, no retractions, no use of accessory muscles and clear to auscultation bilaterally Cardio regular rate, regular rhythm, S1 normal heart sound and S2 normal heart sound GI normal to inspection, nondistended, normoactive bowel sounds, soft to palpation, non-tender and non-distended Assessment & Plan Assessment/Plan (1) Hepatic encephalopathy: PLAN: Acute hepatic encephalopathy in a patient with alcoholic liver cirrhosis Resolved Ammonia was 156 upon arrival. Patient had cut back his lactulose consumption due to inconvenience of having frequent bowel movements while he was on a trip to [place]. Patient was educated by the importance of taking his lactulose and that is more important for him as he has had a TIPS. Patient had a TIPS due to severe anemia and bleeding varices. Patient is not on the transplant list. PLAN: Plan 2.? Alcoholic cirrhosis of the liver ? Status post TIPS procedure patient presented with acute hepatic encephalopathy management as discussed above 3.? Thrombocytopenia ? Secondary to alcoholic liver cirrhosis monitoring with daily CBC 4.? 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 Patient is on Jardiance in addition to Aldactone as well as furosemide currently compensated 5.? DVT prophylaxis ? Bilateral SCDs
[2022-05-19 09:05] VITALS: BP 132/63; PULSE 86; RESP 17; TEMP 36.7; O2SAT 95
--- NOTE | 2022-05-19 10:43 | PCM.DC ---
Discharge Instructions Diet Discharge Diet: Low fat / Low cholesterol Dressing / Incision Call your doctor if you observe: - (confusion) Follow Up Care Test Results: Test results from this visit will be discussed in further detail at your follow-up appointment, if applicable. Discharge Plan Admission Admit Date/Time: 05/17/22 06:05 Primary Reason for Your Visit: hepatic encephalopathy Attending Provider: Ronen Warren Primary Care Provider: [facility] Consulting Providers: Sia Hardy ; Brian Hernandez Discharge Orders/Prescriptions Prescriptions: New lactulose 20 gram/30 mL Solution 20 g PO TID Qty: 1500 0RF Continued furosemide 40 mg Tablet 40 mg PO DAILY spironolactone 100 mg Tablet 100 mg PO DAILY gemfibrozil 600 mg Tablet 600 mg PO DAILY zinc 50 mg Tablet 50 mg PO DAILY multivitamin with iron-mineral Tablet 1 tab PO DAILY Jardiance 25 mg Tablet 25 mg PO DAILY turmeric 400 mg Capsule 400 mg PO DAILY PreserVision AREDS-2 250-90-40-1 mg Tablet,Chewable 1 tab PO DAILY Discontinued lactulose 10 gram/15 mL Solution 30 ml PO DAILY Referrals / Follow Up: [facility] [Primary Care Provider] - Within 2 Weeks Disposition Disposition (needs filled in before D/C Order can be placed): Home, Self Care
--- NOTE | 2022-05-19 10:45 | PCM.DC.SUM ---
Providers Date of Admission: 05/17/22 Primary Care Physician: [facility] Reason For Visit: ACUTE HEPATIC ENCEPHALOPATHY Diagnosis Discharge Diagnosis (1) Hepatic encephalopathy: Status: Acute Code(s): K76.82 - Hepatic encephalopathy Plan: Acute hepatic encephalopathy in a patient with alcoholic liver cirrhosis Resolved Ammonia was 156 upon arrival. Patient had cut back his lactulose consumption due to inconvenience of having frequent bowel movements while he was on a trip to [place]. Patient was educated by the importance of taking his lactulose and that is more important for him as he has had a TIPS. Patient had a TIPS due to severe anemia and bleeding varices. Patient is not on the transplant list. Patient was taking 30 cc/day. We will increase it to 20 3 times daily. Patient states that he has lactulose at home. Plan 2.? Alcoholic cirrhosis of the liver ? Status post TIPS procedure patient presented with acute hepatic encephalopathy management as discussed above 3.? Thrombocytopenia ? Secondary to alcoholic liver cirrhosis monitoring with daily CBC 4.? 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 Patient is on Jardiance in addition to Aldactone as well as furosemide currently compensated Medications at Discharge Home Medications empagliflozin 25 mg tablet (Jardiance) 25 mg PO DAILY 05/17/22 furosemide 40 mg tablet 40 mg PO DAILY 05/17/22 gemfibrozil 600 mg tablet 600 mg PO DAILY 05/17/22 multivitamin with iron-mineral 1 tab PO DAILY 05/17/22 spironolactone 100 mg tablet 100 mg PO DAILY 05/17/22 turmeric 400 mg capsule 400 mg PO DAILY 05/17/22 vit C 250 mg-E 90 mg-zinc 40 mg-copper 1 ta-spyvky-mjqvwp chew tablet (PreserVision AREDS-2) 1 tab PO DAILY 05/17/22 zinc 50 mg tablet 50 mg PO DAILY 05/17/22 lactulose 20 gram/30 mL oral solution 20 g (30 mL) PO TID #1,500 mL 05/19/22 Hospital Course Operations None Procedures None Summary of Care Provided Minutes Spent on Discharge: 32 Weight / BMI Weight Weight: 104.3 kg Body Mass Index (BMI) 30.4 ABG / Lab / Microbiology Data Result Diagrams: 05/18/22 06:45 05/18/22 06:45 Microbiology: Microbiology 05/17/22 03:26 Nasal Secretion SARS-CoV-2 Antigen (Rapid) - Final D/C Instructions Discharge Diet: Low fat / Low cholesterol Call your doctor if you observe: - (confusion) Meaningful Use Info Meaningful Use Diagnoses (Choose all that apply): None applicable Discharge Plan Admission Admit Date/Time: 05/17/22 06:05 Primary Reason for Your Visit: hepatic encephalopathy Attending Provider: Ronen Warren Primary Care Provider: [facility],[place] Consulting Providers: Sia Hardy ; Brian Hernandez Discharge Orders/Prescriptions Prescriptions: New lactulose 20 gram/30 mL Solution 20 g PO TID Qty: 1500 0RF Continued furosemide 40 mg Tablet 40 mg PO DAILY spironolactone 100 mg Tablet 100 mg PO DAILY gemfibrozil 600 mg Tablet 600 mg PO DAILY zinc 50 mg Tablet 50 mg PO DAILY multivitamin with iron-mineral Tablet 1 tab PO DAILY Jardiance 25 mg Tablet 25 mg PO DAILY turmeric 400 mg Capsule 400 mg PO DAILY PreserVision AREDS-2 250-90-40-1 mg Tablet,Chewable 1 tab PO DAILY Discontinued lactulose 10 gram/15 mL Solution 30 ml PO DAILY Referrals / Follow Up: [facility] [Primary Care Provider] - Within 2 Weeks Disposition Disposition (needs filled in before D/C Order can be placed): Home, Self Care Charges/Coding Visit Charges Inpatient E&M: 17331 Disch Hosp >30min
--- NOTE | 2022-05-19 11:28 | PHA.DC.MR ---
Pharmacy Service has performed discharge medication reconciliation for this patient. The patient's discharge medication list was reviewed for discrepancies and discrepancies were resolved. Home Medications empagliflozin 25 mg tablet (Jardiance) 25 mg PO DAILY 05/17/22 furosemide 40 mg tablet 40 mg PO DAILY 05/17/22 gemfibrozil 600 mg tablet 600 mg PO DAILY 05/17/22 multivitamin with iron-mineral 1 tab PO DAILY 05/17/22 spironolactone 100 mg tablet 100 mg PO DAILY 05/17/22 turmeric 400 mg capsule 400 mg PO DAILY 05/17/22 vit C 250 mg-E 90 mg-zinc 40 mg-copper 1 uy-aibhyy-zslksy chew tablet (PreserVision AREDS-2) 1 tab PO DAILY 05/17/22 zinc 50 mg tablet 50 mg PO DAILY 05/17/22 lactulose 20 gram/30 mL oral solution 20 g (30 mL) PO TID #1,500 mL 05/19/22
== END 2022-05-19 13:25 | disposition home or self-care (01) | DRG 434 ==
LOC: ED 04:06 → MS3 06:13
PROVIDERS: Internal Medicine; Admitting Provider Student in an Organized Health Care Education/Training Program; Emergency Provider Emergency Medicine
DX: K70.30 Alcoholic cirrhosis of liver without ascites (principal); D69.6 Thrombocytopenia, unspecified; I50.9 Heart failure, unspecified; K76.82 Hepatic encephalopathy; J92.9 Pleural plaque without asbestos; Z66 Do not resuscitate; Z86.718 Personal history of other venous thrombosis and embolism; Z91.14 Patient's other noncompliance with medication regimen
CPT/HCPCS: 36415; 70450; 71045; 71250; 80048; 80053; 80076; 81001; 82140; 84443; 85025; 87811; 99285

== ENCOUNTER 2023-10-29 16:16 | Inpatient (IN) | payer OTHER, SELFPAY ==
[2023-10-29 16:18] VITALS: BP 147/76; PULSE 75; RESP 12; TEMP 36.1; O2SAT 98
--- NOTE | 2023-10-29 16:21 | EKG12_ITS ---
Test Reason : UNRESPONSIVE Blood Pressure : / mmHG Vent. Rate : 070 BPM Atrial Rate : 070 BPM P-R Int : 134 ms QRS Dur : 104 ms QT Int : 448 ms P-R-T Axes : 055 078 095 degrees QTc Int : 483 ms Normal sinus rhythm Borderline QT prolongation Borderline Confirmed by Lyndon Bledsoe ([id number]), tape editor JEREMY BELL ([id number]) on 10/31/2023 8:12:59 AM Referred By: Confirmed By:Lyndon Bledsoe
--- NOTE | 2023-10-29 16:21 | CT_ITS ---
STUDY: CT BRAIN WITHOUT CONTRAST REASON FOR EXAM: Male, 78 years old. ams RADIATION DOSAGE (If Supplied By Facility): CTDIvol = ( 44.99 ) mGy, DLP = ( 829.85 ) mGycm TECHNIQUE: Transaxial CT imaging of the brain was performed without administration of intravenous contrast material. Individualized dose optimization techniques were used for this CT. COMPARISON: May 17, 2023 FINDINGS: Normal soft tissue structures. Normal calvarium. Mild calcific plaquing of the cavernous carotids Cortical atrophy and mild periventricular white matter ischemic changes. Normal basal ganglia and thalami. Normal brainstem. Normal cerebellum. There is no intracranial hemorrhage. There are no findings of an acute ischemic infarction. Normal visualized paranasal sinuses. Postsurgical changes of the orbits. No significant change since prior exam CT/Brain/Head without Contrast IMPRESSION: Mild cortical atrophy and periventricular white matter ischemic changes. No acute bleed. If concern for acute infarct MRI recommended.. Electronically Signed: Oliverio Stephens MD at 17:50 EDT Reading Location ID and State: [facility] / [place] Tel , Service support ,
--- NOTE | 2023-10-29 16:26 | NURSING ---
NO OLD EKGS
--- NOTE | 2023-10-29 16:27 | EDS_ITS ---
HPI History of Present Illness Chief Complaint: Unresponsive Informant: EMS Narrative Narrative: 78-year-old male with a history of liver cirrhosis status post TIPS brought to the emergency room. There is reported that the patient has been minimally responsive for EMS. He will open his eyes and make sounds with sternal rub and when they call his name. Last he has a history of hepatic encephalopathy last seen at this hospital 2022. At that time he was taking lactulose. At the time of initial examination nobody is here with him to provide additional history and the patient cannot assist. did arrive and provide some history. She states that yesterday he seemed a bit off in his mentation. She encouraged him to take extra lactulose but he did not. She left home this morning to visit with family at around 0630. She returned this afternoon and found him still in bed and thought perhaps he had . She notes that since his last hospitalization he was diagnosed with liver cancer and was treated with radiation and TACE procedure at the [facility]. She states that he had an MRI at the end of September and showed that things were stable and has not received any further treatment. [facility] Medical History (Updated 10/29/23 @ 16:45 by Sari Fermin) MRSA (methicillin resistant staph aureus) culture positive Liver cancer GERD (gastroesophageal reflux disease) GI bleed Cirrhosis DVT (deep venous thrombosis) Home Medications ?Medication ?Instructions ?Recorded ?Last Taken ?Type empagliflozin 25 mg tablet 25 mg PO DAILY 05/17/22 Unknown History (Jardiance) furosemide 40 mg tablet 40 mg PO DAILY 05/17/22 Unknown History gemfibrozil 600 mg tablet 600 mg PO DAILY 05/17/22 Unknown History multivitamin with iron-mineral 1 tab PO DAILY 05/17/22 Unknown History spironolactone 100 mg tablet 100 mg PO DAILY 05/17/22 Unknown History turmeric 400 mg capsule 400 mg PO DAILY 05/17/22 Unknown History vit C 250 mg-E 90 mg-zinc 40 1 tab PO DAILY 05/17/22 Unknown History mg-copper 1 [id number] chew tablet (PreserVision AREDS-2) zinc 50 mg tablet 50 mg PO DAILY 05/17/22 Unknown History lactulose 20 gram/30 mL oral 20 g (30 mL) PO TID #1,500 mL 05/19/22 Unknown Rx solution Allergy/AdvReac Type Severity Reaction Status Date / Time No Known Allergies Allergy Verified 05/17/22 02:15 Social History Smoking Status: Never smoker ROS ROS ED Review of Systems ROS Unobtainable: due to encephalopathy EXAM Physical Exam Const Vital Signs: 10/29/23 16:18 10/29/23 16:57 Temperature 96.9 F L Temperature Source Temporal Pulse Rate 75 Respiratory Rate 12 Respiratory Effort Labored Accessory Muscle Use Respiratory Pattern Normal Blood Pressure 147/76 H Blood Pressure Mean 99 Pulse Ox 98 Oxygen Delivery Method Non-Rebreather @ 15L/min Positive well nourished and well developed General Appearance ED: well developed HEENT Reports normocephalic, head/scalp atraumatic and dry mucous membranes Mouth ED: Yes dry mucous membranes Mouth: dry mucous membranes Eyes PERRL and EOMs intact bilaterally General Eye ED: Negative for scleral icterus Neck no lymphadenopathy, supple and no JVD Resp normal respiratory effort and clear to auscultation bilaterally Cardio regular rate, regular rhythm and no murmurs GI normal to inspection, nondistended, normoactive bowel sounds and non-tender GI Narrative: There is a healed midline incision of the abdomen. The abdomen is soft. There is no tense ascites felt. Palpation: soft Back/Spine no CVA tenderness and normal ROM Extremity normal to inspection General Extremety ED: Negative for edema General Extremity: Negative for edema Neuro Neuro Narrative: Patient will open his eyes to voice and to touch. I can hear mumbled sounds at times from the patient. Skin no rashes or lesions noted and no wounds MDM MDM MDM Narrative Medical decision making narrative: Differential diagnosis includes but not limited to intracranial hemorrhage stroke metabolic acidosis/alkalosis, sepsis, hepatic encephalopathy, anemia, thrombocytopenia, HHS, electrolyte disturbance. CBC with a pancytopenia platelet count of 119 hemoglobin 9.8 white count 3.7. INR is elevated at 1.5 PTT 35.3. Ammonia level is significantly elevated at 205. Troponin is 9 lipase 58 total bilirubin 2.2 direct bilirubin 1.08 AST of 46 ALT of 20 and an alkaline phosphatase of 180. Mcclain catheter was placed with return of a very white purulent urine. This is positive for greater than 100 white blood cells 3+ bacteria. This was sent for culture in addition to blood cultures and the patient received Rocephin and IV fluids. He will receive a rectal dose of lactulose. My independent interpretation of the chest x-ray is no acute process. CT of the brain was obtained and read by radiology reviewed by myself and shows no acute findings. I believe the patient is suffering from acute hepatic encephalopathy and the plan will be admission History & Record Review Discussion w/independent historian: Family Additional record(s) reviewed:: Prior inpatient record, Prior ED visit and Prior labs Lab Data Attestation: I reviewed the patient's lab results. Labs: Laboratory Results - last 24 hr 10/29/23 10/29/23 10/29/23 16:25 16:26 16:52 WBC 3.7 L RBC 2.76 L Hgb 9.8 L Hct 28.2 L MCV 102.2 H MCH 35.5 H MCHC 34.8 RDW Std Deviation 61.6 H RDW Coeff of Vicky 18.5 H Plt Count 119 L MPV 9.5 Immature Gran % (Auto) 0.800 Neut % (Auto) 62.6 Lymph % (Auto) 18.2 L [place] % (Auto) 12.6 H Eos % (Auto) 4.5 Baso % (Auto) 1.3 H Absolute Neuts (auto) 2.3 Absolute Lymphs (auto) 0.68 L Nucleated RBC % 0 PT Cancelled 18.1 H INR Cancelled 1.5 APTT Cancelled 35.3 Sodium 144 Potassium 3.7 Chloride 109 H Carbon Dioxide 27.0 Anion Gap 8 BUN 14 Creatinine 1.14 Est GFR (MDRD) Af Amer 80 Est GFR (MDRD) Non-Af 66 BUN/Creatinine Ratio 12.3 Glucose 104 Calcium 8.1 L Total Bilirubin 2.20 H Direct Bilirubin 1.08 H AST 46 H ALT 20 Alkaline Phosphatase 180 H Ammonia 205.0 H Troponin I High Sens 9 Total Protein 5.9 L Albumin 1.7 L Globulin 4.2 Amylase 16 L Lipase 50 Urine Color Yellow Urine Clarity Cloudy Urine pH 7.0 Ur Specific [place] 1.010 Urine Protein 30 H Urine Glucose (UA) Normal Urine Ketones 5 H Urine Occult Blood 50 H Urine Nitrite Negative Urine Bilirubin Negative Urine Urobilinogen 1 H Ur Leukocyte Esterase 500 H Urine RBC 0 SEEN Urine WBC >100 SEEN Ur Squamous Epith Cells 0 SEEN Urine Bacteria 3+ Urine Mucus 0 SEEN Urine Opiates Screen NEGATIVE Urine Methadone Screen NEGATIVE Ur Barbiturates Screen NEGATIVE Ur Phencyclidine Scrn NEGATIVE Ur Amphetamines Screen NEGATIVE MDMA (Ecstasy) Screen NEGATIVE U Benzodiazepines Scrn NEGATIVE Urine Cocaine Screen NEGATIVE U Cannabinoids Screen NEGATIVE Ur Drug Screen Comment Ethyl Alcohol 5.0 EKG Initial EKG: Attestation: I personally reviewed and interpreted this EKG as follows: Comments: NSR 70 bpm Discharge Plan Triage Chief Complaint: Unresponsive ED Provider: Jason Bergman Dx/Rx/DC Orders Prescriptions: No Action furosemide 40 mg Tablet 40 mg PO DAILY spironolactone 100 mg Tablet 100 mg PO DAILY gemfibrozil 600 mg Tablet 600 mg PO DAILY zinc 50 mg Tablet 50 mg PO DAILY multivitamin with iron-mineral Tablet 1 tab PO DAILY Jardiance 25 mg Tablet 25 mg PO DAILY turmeric 400 mg Capsule 400 mg PO DAILY PreserVision AREDS-2 250-90-40-1 mg Tablet,Chewable 1 tab PO DAILY lactulose 20 gram/30 mL Solution 20 g PO TID Qty: 1500 0RF Primary Care Provider: [facility] [Primary Care Provider] - Print Language: Armenian
[2023-10-29 16:44] LABS: Mucous, Urine 0 SEEN /hpf (<or=2+); Red Blood Cells-Urine 0 SEEN /hpf (0-5); Squamous Epithelial Cells - UA 0 SEEN /hpf (0-5)
[2023-10-29 16:46] LABS: Absolute Lymphocyte Count 0.68 X10^3/uL (0.83-4.51); Absolute Neutrophil Count 2.3 X10^3/uL (2.0-7.7); Basophil# 0.05 X10^3/uL; Basophil% 1.3 % (0-1); Eosinophil# 0.17 X10^3/uL; Eosinophils% 4.5 % (0-5); Hematocrit 28.2 % (40-54); Hemoglobin 9.8 g/dL (13.0-16.5); Lymphocyte # 0.68 X10^3/ul (0.83-4.51); Lymphocyte % 18.2 % (19-41); Mean Corp Hgb Conc 34.8 g/dL (32-36); Mean Corpuscular Hgb 35.5 pg (27.0-32.0); Mean Corpuscular Volume 102.2 fL (80-94); Mean Platelet Vol. 9.5 fl (6.2-12.0); Monocyte# 0.47 X10^3/uL; Monocyte% 12.6 % (0-10); NRBC Flagged by Analyzer 0 % (0-5); Neutrophil # 2.34 X10^3/uL (2.7-7.7); Neutrophil % 62.6 % (47-70); Platelet Count 119 K/mm3 (150-450); RBC Distribution Width CV 18.5 % (11.6-14.6); RBC Distribution Width SD 61.6 fl (35.1-43.9); Red Blood Count 2.76 M/mm3 (4.6-6.2); White Blood Count 3.7 K/mm3 (4.4-11.0)
[2023-10-29 16:48] LABS: Color, Urine Yellow (Yellow); Glucose, Dipstick Normal (Normal); Ketone-Dipstick 5 mg/dl (Negative); Leukocyte Esterase-Dipstick 500 /ul (Negative); Nitrite-Dipstick Negative (Negative); Occult Blood-Urine 50 /ul (Negative); Protein-Dipstick 30 mg/dl (Negative); Urine Bilirubin Dipstick Negative (Negative); Urine Clarity Cloudy (Clear); Urine Urobilinogen 1 mg/dl (Normal)
--- NOTE | 2023-10-29 16:50 | NURSING ---
NEEDS A NEW BLUE TOP, QUANTITY NOT SUFFICIENT
[2023-10-29 16:57] LABS: White Blood Cells >100 SEEN /hpf (0-5)
[2023-10-29 16:58] LABS: Bacteria 3+ /hpf (None Seen)
[2023-10-29] MEDS: 0.9% Normal Saline (1000mL) 1,000 ML 150 ML IV (17:01)
[2023-10-29 17:05] LABS: AST(SGOT) 46 U/L (15-37); Alanine Aminotransfer ALT/SGPT 20 U/L (16-61); Albumin, Serum 1.7 g/dL (3.2-5.0); Alkaline Phosphatase 180 U/L (45-117); Amylase 16 U/L (25-115); Anion Gap 8 (5-15); BUN 14 mg/dL (7-18); BUN/Creat Ratio 12.3 RATIO (10-20); Bilirubin, Direct 1.08 mg/dL (0.00-0.30); Calcium,Total 8.1 mg/dL (8.5-10.1); Chloride 109 mmol/L (98-107); Creatinine, Serum 1.14 mg/dL (0.70-1.30); EST Glomerular Filtration Rate 66 mL/min (>60); Est Glom Filt Rate - Afr Amer 80 mL/min (>60); Globulin 4.2 g/dL (2.2-4.2); Glucose 104 mg/dL (74-106); Lipase 50 U/L (13-75); Potassium 3.7 mmol/L (3.5-5.1); Protein, Total 5.9 g/dL (6.4-8.2); Sodium Level 144 mmol/L (136-145); Troponin-I HS 9 pg/mL (3.0-78.0)
--- NOTE | 2023-10-29 17:20 | RAD_ITS ---
STUDY: X-RAY CHEST REASON FOR EXAM: Male, 78 years old. ams TECHNIQUE: AP portable COMPARISON: Dorsal spine demonstrates degenerative changes FINDINGS: The lungs are clear and expanded. There is focal calcific pleural plaque in the right upper hemithorax. There is no pleural effusion or pneumothorax.. Heart is mildly enlarged. Normal mediastinum and levon. Normal visualized pulmonary arteries. Mildly calcified tortuous aortic arch and descending thoracic aorta. Dorsal spine demonstrates degenerative change. Normal visualized ribs, clavicles, and shoulders. Postsurgical changes within the upper abdomen. RAD/Chest 1 View (Portable) IMPRESSION: ASHD. No acute cardiopulmonary pathology Electronically Signed: Oliverio Stephens MD at 17:54 EDT ,
[2023-10-29 17:22] LABS: Amphetamine Urine VISTA NEGATIVE (<1000 ng/mL); Barbiturate Urine VISTA NEGATIVE (< 200 ng/mL); Benzodiazepine Urine VISTA NEGATIVE (< 200 ng/mL); Cocaine Urine VISTA NEGATIVE (< 300 ng/mL); Ecstacy Urine VISTA NEGATIVE (< 500 ng/mL); Methadone Urine VISTA NEGATIVE (< 300 ng/mL); PCP Urine VISTA NEGATIVE (< 25 ng/mL); THC Urine VISTA NEGATIVE (< 50 ng/mL); Vista UDS pH Range 7
[2023-10-29 17:24] VITALS: BMI 24.4
[2023-10-29 17:24] LABS: International Normalized Ratio 1.5; Prothrombin Time (Protime)PT. 18.1 SECONDS (11.7-14.9)
[2023-10-29 17:25] LABS: Partial Thromboplast Time 35.3 Seconds (24.1-36.2)
[2023-10-29 17:33] VITALS: BP 136/72; PULSE 66; RESP 12; TEMP 36.2; O2SAT 100
[2023-10-29] MEDS: Ceftriaxone 1 GM/50 ML BAG IV (17:40)
[2023-10-29 18:00] VITALS: BP 146/73; PULSE 80; RESP 12; TEMP 36.2; O2SAT 100
[2023-10-29] MEDS: 0.9% Normal Saline (1000mL) 1,000 ML 999 ML IV (18:06)
[2023-10-29] MEDS: Lactulose 20 GM/30 ML UDC 200 GM RC (18:06)
[2023-10-29 18:08] VITALS: BP 146/73; PULSE 69; RESP 12; TEMP 36.2; O2SAT 100
--- NOTE | 2023-10-29 18:15 | HP.PCM.HOS_ITS ---
HPI - General General Date of Admission: 10/29/23 Date of Service: 10/29/23 Chief Complaint: Unresponsiveness HPI Narrative BRYSON FLORES, is a 78 M with a significant history of liver status post TACE procedure, radiation and TIPS procedure who presented to the emergency department with unresponsiveness. A day before presentation patient was confused and his asked him to take an extra dose of lactulose. However patient did not take the extra dose of lactulose as advised by his .. On the day of presentation came back home and found patient unresponsive and appeared to have stayed in bed all day. Patient was brought to emergency department where he was found to be lethargic; not following commands but able to open his eyes to voice. At the emergency department patient's ammonia level was found to be high. He was given lactulose enema and had bowel movements afterwards. [facility] Medical History Cancer Alcohol abuse Hypertension MRSA (methicillin resistant staph aureus) culture positive Liver cancer GERD (gastroesophageal reflux disease) GI bleed Cirrhosis DVT (deep venous thrombosis) Home Medications ?Medication ?Instructions ?Recorded ?Last Taken ?Type empagliflozin 25 mg tablet 25 mg PO DAILY 05/17/22 10/28/23 History (Jardiance) furosemide 40 mg tablet 40 mg PO DAILY 05/17/22 10/28/23 History gemfibrozil 600 mg tablet 600 mg PO DAILY 05/17/22 10/28/23 History multivitamin with iron-mineral 1 tab PO DAILY 05/17/22 10/28/23 History spironolactone 100 mg tablet 100 mg PO DAILY 05/17/22 10/28/23 History vit C 250 mg-E 90 mg-zinc 40 1 tab PO DAILY 05/17/22 10/28/23 History mg-copper 1 [id number] chew tablet (PreserVision AREDS-2) lactulose 20 gram/30 mL oral 20 g (30 mL) PO TID #1,500 mL 05/19/22 10/28/23 Rx solution Allergy/AdvReac Type Severity Reaction Status Date / Time No Known Allergies Allergy Verified 05/17/22 02:15 Family History Other Heart disease Surgical History S/P TIPS (transjugular intrahepatic portosystemic shunt) History of J Carlos fundoplication Social History Smoking Status: Former smoker ROS ROS Narrative Pertinent positives and pertinent negatives as noted in HPI. All other systems were reviewed and are negative Vital Signs Vital Signs Vital Signs: 10/29/23 16:18 10/29/23 16:57 10/29/23 17:33 Temperature 96.9 F L 97.1 F L Temperature Source Temporal Temporal Pulse Rate 75 66 Respiratory Rate 12 12 Respiratory Effort Labored Accessory Muscle Use Respiratory Pattern Normal Blood Pressure 147/76 H 136/72 H Blood Pressure Mean 99 93 Pulse Ox 98 100 Oxygen Delivery Method Non-Rebreather @ 15L/min Room Air Oxygen Flow Rate (L/min) 10/29/23 18:00 10/29/23 18:08 Temperature 97.1 F L 97.1 F L Temperature Source Temporal Pulse Rate 80 69 Respiratory Rate 12 12 Respiratory Effort Respiratory Pattern Blood Pressure 146/73 H 146/73 H Blood Pressure Mean 97 97 Pulse Ox 100 100 Oxygen Delivery Method Nasal Cannula Oxygen Flow Rate (L/min) 2 Weight Weight: 81.647 kg Body Mass Index (BMI) 24.4 Physical Exam Narrative Physical exam: General: Lying in bed; open eyes to verbal commands. Head: Normocephalic, atraumatic, no tenderness Eyes: Sclera is anicteric. No conjunctival injection ENT, no trauma, moist mucous membranes, no rhinorrhea Neck: Nontender, No thyromegaly. CVS: S1-S2 present. Heart murmur present Respiratory : clear to auscultation bilaterally, chest wall nontender Abdomen: Soft, nontender, nondistended, normal bowel sounds, no masses : Mcclain catheter (inserted at the emergency department) Back: Nontender, no CVA tenderness, no midline spinal tenderness, deformities, step-offs Extremities: Nontender full range of motion, no trauma Skin: Normal color, no trauma, abrasions Neuro: Lethargic, opens eyes to verbal commands. Psychiatry: Lethargic and open eyes to verbal commands. Results Lab / Micro Data 10/29/23 16:25 10/29/23 16:25 Labs: Laboratory Results - last 24 hr 10/29/23 16:25: WBC 3.7 L, RBC 2.76 L, Hgb 9.8 L, Hct 28.2 L, MCV 102.2 H, MCH 35.5 H, MCHC 34.8, RDW Std Deviation 61.6 H, RDW Coeff of Vicky 18.5 H, Plt Count 119 L, MPV 9.5, Immature Gran % (Auto) 0.800, Neut % (Auto) 62.6, Lymph % (Auto) 18.2 L, [place] % (Auto) 12.6 H, Eos % (Auto) 4.5, Baso % (Auto) 1.3 H, Absolute Neuts (auto) 2.3, Absolute Lymphs (auto) 0.68 L, Nucleated RBC % 0, PT Cancelled, INR Cancelled, APTT Cancelled, Sodium 144, Potassium 3.7, Chloride 109 H, Carbon Dioxide 27.0, Anion Gap 8, BUN 14, Creatinine 1.14, Est GFR (MDRD) Af Amer 80, Est GFR (MDRD) Non-Af 66, BUN/Creatinine Ratio 12.3, Glucose 104, C alcium 8.1 L, Total Bilirubin 2.20 H, Direct Bilirubin 1.08 H, AST 46 H, ALT 20, Alkaline Phosphatase 180 H, Ammonia 205.0 H, Troponin I High Sens 9, Total Protein 5.9 L, Albumin 1.7 L, Globulin 4.2, Amylase 16 L, Lipase 50, Ethyl Alcohol 5.0 10/29/23 16:26: Urine Color Yellow, Urine Clarity Cloudy, Urine pH 7.0, Ur Specific [place] 1.010, Urine Protein 30 H, Urine Glucose (UA) Normal, Urine Ketones 5 H, Urine Occult Blood 50 H, Urine Nitrite Negative, Urine Bilirubin Negative, Urine Urobilinogen 1 H, Ur Leukocyte Esterase 500 H, Urine RBC 0 SEEN, Urine WBC >100 SEEN, Ur Squamous Epith Cells 0 SEEN, Urine Bacteria 3+, Urine Mucus 0 SEEN, Urine Opiates Screen NEGATIVE, Urine Methadone Screen NEGATIVE, Ur Barbiturates Screen NEGATIVE, Ur Phencyclidine Scrn NEGATIVE, Ur Amphetamines Screen NEGATIVE, MDMA (Ecstasy) Screen NEGATIVE, U Benzodiazepines Scrn NEGATIVE, Urine Cocaine Screen NEGATIVE, U Cannabinoids Screen NEGATIVE, Ur Drug Screen Comment 10/29/23 16:52: PT 18.1 H, INR 1.5, APTT 35.3, Lactic Acid 2.0 Imaging Radiology Impression Brain CT 10/29/23 16:21 IMPRESSION: Mild cortical atrophy and periventricular white matter ischemic changes. No acute bleed. If concern for acute infarct MRI recommended.. Electronically Signed: Oliverio Stephens MD at 17:50 EDT , Chest X-Ray 10/29/23 17:20 IMPRESSION: ASHD. No acute cardiopulmonary pathology Electronically Signed: Oliverio Stephens MD at 17:54 EDT , Assessment & Plan Assessment/Plan (1) Acute UTI: (2) Cirrhosis of liver: QUALIFIERS: Hepatic cirrhosis type: alcoholic cirrhosis Ascites presence: with ascites Qualified Code(s): K70.31 - Alcoholic cirrhosis of liver with ascites (3) Acute hepatic encephalopathy: (4) Liver cancer: QUALIFIERS: Liver malignancy type: unspecified primary liver malignancy Qualified Code(s): C22.8 - Malignant neoplasm of liver, primary, unspecified as to type PLAN: Plan BRYSON FLORES, is a 78 M with a significant history of liver status post TACE procedure, radiation and TIPS procedure who presented to the emergency department with unresponsiveness; found to have elevated ammonia; and also UTI consistent with acute metabolic encephalopathy secondary to hyperammonemia and acute cystitis. Acute metabolic encephalopathy secondary to UTI and hyperammonemia Treatment as below. Acute hepatic encephalopathy/hyperammonemia Lactulose given rectally at the emergency department and continued. Hold all p.o. medications at this time. Hold diuretics at this time as patient will be n.p.o. until patient is more lucid. Acute UTI Urinalysis at the emergency department was abnormal. Urine culture and blood culture ordered at the emergency department, follow. Heart murmur Echocardiogram ordered. DVT prophylaxis. Subcutaneous Lovenox ordered. Advance care planning: Discussed with family advanced directives as well as CODE STATUS. Explained various CODE STATUS: FULL CODE, DNR CCA, DNR CCA with no intubation, and DNR CC- and what each meant. Per family patient is a full code with CPR and intubation if warranted. Order was placed. Time spent on discussion 16 minutes. Time spent in the patient's overall evaluation,decision-making process, review of diagnostic data, adjustment of management, discussion with other providers, nursing and ancillary staff involved in patient's care documentation, 70 minutes. Charges/Coding Visit Charges Inpatient E&M: 90876 Init Hosp L3 Procedures Hospitalists Procedures: 70041 Advncd Care Plan 30 Min
--- NOTE | 2023-10-29 18:23 | ED.RN ---
[facility] CALLED TO CHECK B[facility] STAT[facility] THEY WILL CALL BACK
[2023-10-29 19:00] VITALS: BP 139/64; PULSE 70; RESP 12; TEMP 36.3; O2SAT 100
[2023-10-29 20:25] VITALS: BMI 26.7
[2023-10-29 20:59] LABS: Reflex Lactate? Y
[2023-10-29 21:03] VITALS: BP 149/83; PULSE 80; RESP 18; TEMP 36.4; O2SAT 100
[2023-10-29 22:02] LABS: Lactic Acid 1.7 mmol/L (0.4-1.9)
--- NOTE | 2023-10-29 22:20 | ECHOD_ITS ---
Reason For Study: Murmur Procedure This was a 2D Doppler, Color Flow transthoracic echocardiogram. Exam performed portable in patient room. Left Ventricle Normal LV size. The estimated ejection fraction is 60 %. No evidence for diastolic dysfunction. No regional wall motion abnormalities noted. Right Ventricle Normal RV size. Normal systolic function. Atria The left atrium is mildly enlarged. Normal right atrium. No doppler evidence for ASD. Mitral Valve There is moderate to severe mitral annular calcification. There is no mitral valve stenosis. Trivial mitral valve insufficiency. Tricuspid Valve There is no tricuspid stenosis. Trivial tricuspid valve insufficiency. Pulmonary artery systolic pressure is 35 mmHg. Aortic Valve Trisinus/trileaflet aortic valve. Moderate diffuse aortic valve thickening. Moderate aortic stenosis. No aortic valve insufficiency. Pulmonic Valve There is no pulmonic valvular stenosis. Trivial pulmonic valve insufficiency. Great Vessels Normal aortic root. Pericardium/Pleural No pericardial effusion. MMode/2D Measurements & Calculations LVIDd: 5.2 cm IVSd: 1.1 cm LVOT diam: 2.1 cm LVIDs: 3.7 cm LVPWd: 0.98 cm LVOT area: 3.5 cm2 FS: 28.2 % Ao root diam: 3.8 cm LAV(MOD-sp2): 67.8 ml Aortic Valve Planimetry: 0.83 cm2 LA dimension: 4.2 cm TAPSE: 2.1 cm Time Measurements MV dec time: 0.23 sec Doppler Measurements & Calculations MV E max steven: 130.9 cm/sec Lat Peak E' Steven: 12.1 cm/sec Med Peak E' Steven: 11.2 cm/sec MV A max steven: 88.6 cm/sec E/E' lat: 10.8 E/E' med: 11.7 MV E/A: 1.5 MV V2 max: 169.4 cm/sec MV P1/2t max steven: 170.4 cm/sec Ao V2 max: 329.0 cm/sec MV max P.5 mmHg MV P1/2t: 78.3 msec Ao max P.3 mmHg MV V2 mean: 90.7 cm/sec MV dec slope: 637.0 cm/sec2 Ao V2 mean: 227.5 cm/sec MV mean P.0 mmHg Ao mean P.9 mmHg MV V2 VTI: 35.5 cm MVA(P1/2t): 2.8 cm2 Ao V2 VTI: 75.2 cm MVA(VTI): 2.6 cm2 AV (velocity ratio): 0.35 SOL(I,D): 1.2 cm2 SOL(V,D): 1.3 cm2 LV V1 max: 121.1 cm/sec MR max steven: 533.1 cm/sec SV(LVOT): 92.2 ml LV V1 max P.7 mmHg MR max P.7 mmHg LV V1 mean P.8 mmHg LV V1 mean: 83.7 cm/sec LV V1 VTI: 26.4 cm PA V2 max: 108.0 cm/sec TR max steven: 265.0 cm/sec PA max PG (full): 1.5 mmHg TR max P.1 mmHg PA V2 mean: 81.2 cm/sec PA mean PG (full): 1.1 mmHg ECHO/Echo Complete Interpretation Summary The estimated ejection fraction is 60 %. No evidence for diastolic dysfunction. The left atrium is mildly enlarged. Trivial mitral valve insufficiency. Moderate aortic stenosis. Ordering Physician: Wagner Cavazos Performed By: Tyrone Gonzalez RCS
[2023-10-30] VITALS (8 sets, daily range): BP systolic 138–153; BP diastolic 74–96; PULSE 84–150; RESP 16–19; TEMP 36.5–36.9; O2SAT 97–100
[2023-10-30 06:31] LABS: Absolute Lymphocyte Count 0.54 X10^3/uL (0.83-4.51); Absolute Neutrophil Count 2.6 X10^3/uL (2.0-7.7); Basophil# 0.05 X10^3/uL; Basophil% 1.3 % (0-1); Eosinophil# 0.14 X10^3/uL; Eosinophils% 3.7 % (0-5); Hemoglobin 10.8 g/dL (13.0-16.5); Lymphocyte # 0.54 X10^3/ul (0.83-4.51); Lymphocyte % 14.4 % (19-41); Mean Corpuscular Hgb 37.4 pg (27.0-32.0); Mean Corpuscular Volume 103.8 fL (80-94); Mean Platelet Vol. 9.4 fl (6.2-12.0); Monocyte# 0.39 X10^3/uL; Monocyte% 10.4 % (0-10); NRBC Flagged by Analyzer 0 % (0-5); Neutrophil % 69.7 % (47-70); POSITIVE DIFFERENTIAL YES; Platelet Count 109 K/mm3 (150-450); RBC Distribution Width CV 17.9 % (11.6-14.6); RBC Distribution Width SD 63.1 fl (35.1-43.9); Red Blood Count 2.89 M/mm3 (4.6-6.2); White Blood Count 3.7 K/mm3 (4.4-11.0)
[2023-10-30] MEDS: Lactulose 20 GM/30 ML UDC PO ×3 (06:49→21:36)
[2023-10-30 07:01] LABS: ALB/GLOB Ratio 0.4 RATIO (0.9-2.4); AST(SGOT) 48 U/L (15-37); Alanine Aminotransfer ALT/SGPT 21 U/L (16-61); Albumin, Serum 1.7 g/dL (3.2-5.0); Alkaline Phosphatase 159 U/L (45-117); Anion Gap 7 (5-15); BUN 12 mg/dL (7-18); BUN/Creat Ratio 16.2 RATIO (10-20); Calcium,Total 8.1 mg/dL (8.5-10.1); Chloride 115 mmol/L (98-107); Creatinine, Serum 0.74 mg/dL (0.70-1.30); EST Glomerular Filtration Rate 109 mL/min (>60); Est Glom Filt Rate - Afr Amer 132 mL/min (>60); Estimated Creatinine Clearance 86.22 ml/min; Globulin 4.2 g/dL (2.2-4.2); Glucose 88 mg/dL (74-106); Potassium 3.5 mmol/L (3.5-5.1); Protein, Total 5.9 g/dL (6.4-8.2); Sodium Level 145 mmol/L (136-145)
[2023-10-30 07:07] LABS: Bedside Glucose 99 mg/dL (74-106)
--- NOTE | 2023-10-30 09:08 | PCM.PN.HOSP ---
Reason for Visit Reason for Visit: Diagnoses Malignant neoplasm of liver, primary, unspecified as to type (10/29/23) Alcoholic cirrhosis of liver with ascites (10/29/23) Hepatic encephalopathy (10/29/23) Urinary tract infection, site not specified (10/29/23) Objective Data Objective Data Vital Signs: Vital Signs Temp Pulse Resp BP Pulse Ox O2 Del Method O2 Flow Rate 97.9 F 91 16 153/80 H 100 Nasal Cannula 2 10/30/23 05:49 10/30/23 05:49 10/30/23 05:49 10/30/23 05:49 10/30/23 05:49 10/30/23 05:49 10/30/23 05:49 Oxygen Flow Rate (L/min) 2 Oxygen Delivery Method Nasal Cannula Weight: 197 lb 4.8 oz Body Mass Index (BMI) 26.7 Intake & Output: Intake and Output for Last 24 Hours 10/28/23 10/29/23 10/30/23 23:59 23:59 23:59 Intake Total 1892.5 / 1892.5 Output Total 425 / 425 250 / 250 Balance 1467.5 / 1467.5 -250 / -250 Lab / Micro Data 10/30/23 05:22 10/30/23 05:22 Labs: Laboratory Results - last 24 hr 10/29/23 16:25: WBC 3.7 L, RBC 2.76 L, Hgb 9.8 L, Hct 28.2 L, MCV 102.2 H, MCH 35.5 H, MCHC 34.8, RDW Std Deviation 61.6 H, RDW Coeff of Vicky 18.5 H, Plt Count 119 L, MPV 9.5, Immature Gran % (Auto) 0.800, Neut % (Auto) 62.6, Lymph % (Auto) 18.2 L, [place] % (Auto) 12.6 H, Eos % (Auto) 4.5, Baso % (Auto) 1.3 H, Absolute Neuts (auto) 2.3, Absolute Lymphs (auto) 0.68 L, Nucleated RBC % 0, Sodium 144, Potassium 3.7, Chloride 109 H, Carbon Dioxide 27.0, Anion Gap 8, BUN 14, Creatinine 1.14, Est GFR (MDRD) Af Amer 80, Est GFR (MDRD) Non-Af 66, BUN/Creatinine Ratio 12.3, Glucose 104, Calcium 8.1 L, Total Bilirubin 2.20 H, Direct Bilirubin 1.08 H, AST 46 H, ALT 20, Alkaline Phosphatase 180 H, Ammonia 205.0 H, Troponin I High Sens 9, Total Protein 5.9 L, Albumin 1.7 L, Globulin 4.2, Amylase 16 L, Lipase 50, Ethyl Alcohol 5.0 10/29/23 16:26: Urine Color Yellow, Urine Clarity Cloudy, Urine pH 7.0, Ur Specific [place] 1.010, Urine Protein 30 H, Urine Glucose (UA) Normal, Urine Ketones 5 H, Urine Occult Blood 50 H, Urine Nitrite Negative, Urine Bilirubin Negative, Urine Urobilinogen 1 H, Ur Leukocyte Esterase 500 H, Urine RBC 0 SEEN, Urine WBC >100 SEEN, Ur Squamous Epith Cells 0 SEEN, Urine Bacteria 3+, Urine Mucus 0 SEEN, Urine Opiates Screen NEGATIVE, Urine Methadone Screen NEGATIVE, Ur Barbiturates Screen NEGATIVE, Ur Phencyclidine Scrn NEGATIVE, Ur Amphetamines Screen NEGATIVE, MDMA (Ecstasy) Screen NEGATIVE, U Benzodiazepines Scrn NEGATIVE, Urine Cocaine Screen NEGATIVE, U Cannabinoids Screen NEGATIVE, Ur Drug Screen Comment 10/29/23 16:52: PT 18.1 H, INR 1.5, APTT 35.3, Lactic Acid 2.0 10/29/23 21:30: Lactic Acid 1.7 10/30/23 05:22: WBC 3.7 L, RBC 2.89 L, Hgb 10.8 L, Hct 30.0 L, MCV 103.8 H, MCH 37.4 H, MCHC 36.0, RDW Std Deviation 63.1 H, RDW Coeff of Vicky 17.9 H, Plt Count 109 L, MPV 9.4, Immature Gran % (Auto) 0.500, Neut % (Auto) 69.7, Lymph % (Auto) 14.4 L, [place] % (Auto) 10.4 H, Eos % (Auto) 3.7, Baso % (Auto) 1.3 H, Absolute Neuts (auto) 2.6, Absolute Lymphs (auto) 0.54 L, Nucleated RBC % 0, Sodium 145, Potassium 3.5, Chloride 115 H, Carbon Dioxide 23.0, Anion Gap 7, BUN 12, Creatinine 0.74, Estim Creat Clear Calc 86.22, Est GFR (MDRD) Af Amer 132, Est GFR (MDRD) Non-Af 109, BUN/Creatinine Ratio 16.2, Glucose 88, Calcium 8.1 L, Total Bilirubin 2.70 H, AST 48 H, ALT 21, Alkaline Phosphatase 159 H, Total Protein 5.9 L, Albumin 1.7 L, Globulin 4.2, Albumin/Globulin Ratio 0.4 L 10/30/23 06:49: POC Glucose 99 Micro: Microbiology 10/29/23 16:52 Blood Culture (Wb) - Anticubital Left Blood Culture - Preliminary Radiography Diagnostic Testing: Radiology Impression Brain CT 10/29/23 16:21 IMPRESSION: Mild cortical atrophy and periventricular white matter ischemic changes. No acute bleed. If concern for acute infarct MRI recommended.. Electronically Signed: Oliverio Stephens MD at 17:50 EDT , Chest X-Ray 10/29/23 17:20 IMPRESSION: ASHD. No acute cardiopulmonary pathology Electronically Signed: Oliverio Stephens MD at 17:54 EDT , Physical Exam Narrative Seen and examined. Patient is awake alert. He had bowel movement in the morning. Patient is slightly slow to respond but mental status is much improved. History of liver cancer status post TACE. Decompensated liver cirrhosis status post TIPS. Physical exam General: Awake, alert oriented x3, Cooperative HEENT: Atraumatic, PERRLA, EOMI, Normocephalic Oral: No Gingival or Mucosal Lesions/ Ulcerations Neck: Supple, No JVD, Negative Carotid Bruits Chest wall/Lungs: Air entry diminished in bilateral lung bases. No crepitation/rhonchi Cardiovascular: Sinus tachycardia, Normal S1, Normal S2, No M/G/R Abdomen: No distention or noticeable ascites. TIPS functioning. Bowel Sounds Present, Soft, Non Tender : No dysuria. No renal angle tenderness. No suprapubic tenderness. Extremities: 3+ bilateral pitting edema, Capillary Refill Less than 3 Seconds Skin: No rashes, No breakdown Musculoskeletal: No Tenderness to Palpation of Joints or Extremities Neurological: Cranial nerves II-XII grossly intact, DTR 2+/4. No acute focal neurological deficit. Coherent speech but slow to respond. Psych/Mental Status: Normal Affect, Appropriate. Assessment & Plan Assessment/Plan (1) Acute UTI: (2) Cirrhosis of liver: QUALIFIERS: Ascites presence: with ascites Hepatic cirrhosis type: alcoholic cirrhosis Qualified Code(s): K70.31 - Alcoholic cirrhosis of liver with ascites (3) Acute hepatic encephalopathy: (4) Liver cancer: QUALIFIERS: Liver malignancy type: unspecified primary liver malignancy Qualified Code(s): C22.8 - Malignant neoplasm of liver, primary, unspecified as to type PLAN: Plan BRYSON FLORES, is a 78 M with a significant history of liver status post TACE procedure, radiation and TIPS procedure who presented to the emergency department with unresponsiveness; found to have elevated ammonia; and also UTI consistent with acute metabolic encephalopathy secondary to hyperammonemia and acute cystitis. Acute metabolic encephalopathy secondary to UTI and/hepatic encephalopathy: Patient is being admitted on Medrg floor. Mental status is improved patient having bowel movement with lactulose. Rifaximin ordered. Continue treating UTI. Rectal lactulose enema discontinued as patient cannot take oral. Decompensated cirrhosis most likely alcoholic status post TIPS, complicated with liver cancer status post TACE and thrombocytopenia: Patient on furosemide and spironolactone continued. Patient was in sinus tachycardia heart rate 140s. Nadolol 40 mg started and heart rate controlled. Patient has significant lower extremity swelling but not ascites therefore TIPS is functioning. Continue lactulose. Acute UTI: UA abnormal, LE 500, nitrite negative. WBC more than 100 cells. 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 Full culture pending. Continue IV ceftriaxone Chronic moderate aortic stenosis: Echo shows EF 60%, no evidence of diastolic dysfunction. Left atrium mildly enlarged. Trivial MR moderate aortic stenosis. No aortic insufficiency. Echocardiogram ordered. DVT prophylaxis. Subcutaneous Lovenox ordered. Advance care planning: Discussed with family advanced directives as well as CODE STATUS. Explained various CODE STATUS: FULL CODE, DNR CCA, DNR CCA with no intubation, and DNR CC- and what each meant. Per family patient is a full code with CPR and intubation if warranted. Order was placed. Total time of the visit including total time spent in counseling or coordination of care, (more than 50% of the total time, spent in obtaining medical information from nurses and other ancillary care providers,explaining to the patient about labs, imaging, diagnosis and management of active complex medical conditions), discussion with medical record., review of labs and imaging is 40 minutes. 10/29/23 16:25: WBC 3.7 L, RBC 2.76 L, Hgb 9.8 L, Hct 28.2 L, MCV 102.2 H, MCH 35.5 H, MCHC 34.8, RDW Std Deviation 61.6 H, RDW Coeff of Vicky 18.5 H, Plt Count 119 L, MPV 9.5, Immature Gran % (Auto) 0.800, Neut % (Auto) 62.6, Lymph % (Auto) 18.2 L, [place] % (Auto) 12.6 H, Eos % (Auto) 4.5, Baso % (Auto) 1.3 H, Absolute Neuts (auto) 2.3, Absolute Lymphs (auto) 0.68 L, Nucleated RBC % 0, Sodium 144, Potassium 3.7, Chloride 109 H, Carbon Dioxide 27.0, Anion Gap 8, BUN 14, Creatinine 1.14, Est GFR (MDRD) Af Amer 80, Est GFR (MDRD) Non-Af 66, BUN/Creatinine Ratio 12.3, Glucose 104, Calcium 8.1 L, Total Bilirubin 2.20 H, Direct Bilirubin 1.08 H, AST 46 H, ALT 20, Alkaline Phosphatase 180 H, Ammonia 205.0 H, Troponin I High Sens 9, Total Protein 5.9 L, Albumin 1.7 L, Globulin 4.2, Amylase 16 L, Lipase 50, Ethyl Alcohol 5.0 10/29/23 16:26: Urine Color Yellow, Urine Clarity Cloudy, Urine pH 7.0, Ur Specific [place] 1.010, Urine Protein 30 H, Urine Glucose (UA) Normal, Urine Ketones 5 H, Urine Occult Blood 50 H, Urine Nitrite Negative, Urine Bilirubin Negative, Urine Urobilinogen 1 H, Ur Leukocyte Esterase 500 H, Urine RBC 0 SEEN, Urine WBC >100 SEEN, Ur Squamous Epith Cells 0 SEEN, Urine Bacteria 3+, Urine Mucus 0 SEEN, Urine Opiates Screen NEGATIVE, Urine Methadone Screen NEGATIVE, Ur Barbiturates Screen NEGATIVE, Ur Phencyclidine Scrn NEGATIVE, Ur Amphetamines Screen NEGATIVE, MDMA (Ecstasy) Screen NEGATIVE, U Benzodiazepines Scrn NEGATIVE, Urine Cocaine Screen NEGATIVE, U Cannabinoids Screen NEGATIVE, Ur Drug Screen Comment 10/29/23 16:52: PT 18.1 H, INR 1.5, APTT 35.3, Lactic Acid 2.0 10/29/23 21:30: Lactic Acid 1.7 10/30/23 05:22: WBC 3.7 L, RBC 2.89 L, Hgb 10.8 L, Hct 30.0 L, MCV 103.8 H, MCH 37.4 H, MCHC 36.0, RDW Std Deviation 63.1 H, RDW Coeff of Vicky 17.9 H, Plt Count 109 L, MPV 9.4, Immature Gran % (Auto) 0.500, Neut % (Auto) 69.7, Lymph % (Auto) 14.4 L, [place] % (Auto) 10.4 H, Eos % (Auto) 3.7, Baso % (Auto) 1.3 H, Absolute Neuts (auto) 2.6, Absolute Lymphs (auto) 0.54 L, Nucleated RBC % 0, Sodium 145, Potassium 3.5, Chloride 115 H, Carbon Dioxide 23.0, Anion Gap 7, BUN 12, Creatinine 0.74, Estim Creat Clear Calc 86.22, Est GFR (MDRD) Af Amer 132, Est GFR (MDRD) Non-Af 109, BUN/Creatinine Ratio 16.2, Glucose 88, Calcium 8.1 L, Total Bilirubin 2.70 H, AST 48 H, ALT 21, Alkaline Phosphatase 159 H, Total Protein 5.9 L, Albumin 1.7 L, Globulin 4.2, Albumin/Globulin Ratio 0.4 L 10/30/23 06:49: POC Glucose 99 Charges/Coding Visit Charges Inpatient E&M: 38919 Subs Hosp L3
[2023-10-30] MEDS: Ceftriaxone 1 GM/50 ML BAG IV (11:17)
[2023-10-30] MEDS: Spironolactone 50 MG Tablet 100 MG PO (11:17)
[2023-10-30] MEDS: Nadolol 40 MG Tablet PO (11:18)
[2023-10-30] MEDS: Multivitamins,Ther W-Minerals Tablet 1 TABLET PO ×2 (11:18)
[2023-10-30] MEDS: Furosemide 40 MG Tablet PO (11:18)
--- NOTE | 2023-10-30 11:21 | CASEMGMT ---
TARA HOLLIS Assessment Face to Face with patient for initial transition planning/care coordination assessment. TARA HOLLIS introduced self and role at [facility], however the pt is confused. Pt is A&Ox1 to self and is resting comfortably in the chair and is calm. TC to pt (María) and María states that she is willing to answer this RN BUNNY questions for assessment. Care providers, pharmacy, and demographics verified. Admitting dx: Acute Metabolic Encephalopathy PCP: [facility] Specialists: Beater Out, Oncologist, Purse Seiner, and Urologist through the [place] Preferred Pharmacy: [facility] Insurance: [place], [facility] Prescription Benefit: Yes LNOK: María Moreno (W) Living Arrangements: Pt lives with his SO in a single story home with 3 steps to enter ADLs/IADLs: Ind at baseline Transportation: Self, DME: Grab bars, [employer]. Pt denies all other DME uses or needs at this time HHC/SNF: [facility] Denies SNF Pt?s goal: Home Plan: Home with the continuation of OP Tx. Pt anticipates that the pt will DC home once medically ready. Pt denies the need for HHC at this time as the pt is active [facility]. CM to follow. Anthony Baires RN, CM
--- NOTE | 2023-10-30 11:42 | CASEMGMT ---
Social Work SW called María, she confirms she is pt's POA for healthcare, will bring in the documents if she can find them. [facility] states that [facility] as [facility] them [facility]. She also states her last name is Armando now. SW will correct the demographics. DAVON Gastelum
[2023-10-30 12:02] LABS: Bedside Glucose 104 mg/dL (74-106)
[2023-10-30] MEDS: Enoxaparin 40 MG/0.4 ML Syringe SC (13:07)
[2023-10-30 16:22] LABS: Bedside Glucose 130 mg/dL (74-106)
[2023-10-30 21:55] LABS: Bedside Glucose 142 mg/dL (74-106)
[2023-10-31 02:04] VITALS: BP 131/78; PULSE 90; RESP 16; TEMP 37.3; O2SAT 98
[2023-10-31 04:13] VITALS: PULSE 92
[2023-10-31] MEDS: Lactulose 20 GM/30 ML UDC PO (05:31)
[2023-10-31 05:56] LABS: Bedside Glucose 78 mg/dL (74-106)
[2023-10-31] MEDS: Acetaminophen 325 MG Tablet 650 MG PO (06:41)
[2023-10-31 07:18] LABS: Absolute Lymphocyte Count 0.33 X10^3/uL (0.83-4.51); Absolute Neutrophil Count 5.6 X10^3/uL (2.0-7.7); Basophil# 0.05 X10^3/uL; Basophil% 0.7 % (0-1); Eosinophil# 0.24 X10^3/uL; Eosinophils% 3.5 % (0-5); Hematocrit 32.4 % (40-54); Hemoglobin 10.8 g/dL (13.0-16.5); Lymphocyte # 0.33 X10^3/ul (0.83-4.51); Lymphocyte % 4.8 % (19-41); Mean Corp Hgb Conc 33.3 g/dL (32-36); Mean Corpuscular Hgb 33.4 pg (27.0-32.0); Mean Corpuscular Volume 100.3 fL (80-94); Mean Platelet Vol. 9.9 fl (6.2-12.0); Monocyte# 0.62 X10^3/uL; NRBC Flagged by Analyzer 0 % (0-5); Neutrophil # 5.64 X10^3/uL (2.7-7.7); Neutrophil % 81.4 % (47-70); POSITIVE DIFFERENTIAL YES; Platelet Count 113 K/mm3 (150-450); RBC Distribution Width CV 17.3 % (11.6-14.6); RBC Distribution Width SD 63.2 fl (35.1-43.9); Red Blood Count 3.23 M/mm3 (4.6-6.2); White Blood Count 6.9 K/mm3 (4.4-11.0)
[2023-10-31 07:40] VITALS: O2SAT 98
[2023-10-31 07:43] VITALS: BP 129/70; PULSE 92; RESP 20; TEMP 37.2; O2SAT 100
[2023-10-31 07:44] VITALS: PULSE 100
[2023-10-31 07:49] LABS: ALB/GLOB Ratio 0.4 RATIO (0.9-2.4); AST(SGOT) 59 U/L (15-37); Alanine Aminotransfer ALT/SGPT 25 U/L (16-61); Albumin, Serum 1.8 g/dL (3.2-5.0); Alkaline Phosphatase 173 U/L (45-117); Anion Gap 5 (5-15); BUN 12 mg/dL (7-18); BUN/Creat Ratio 14.3 RATIO (10-20); Calcium,Total 8.9 mg/dL (8.5-10.1); Chloride 115 mmol/L (98-107); Creatinine, Serum 0.84 mg/dL (0.70-1.30); EST Glomerular Filtration Rate 95 mL/min (>60); Est Glom Filt Rate - Afr Amer 115 mL/min (>60); Estimated Creatinine Clearance 82.12 ml/min; Globulin 4.6 g/dL (2.2-4.2); Glucose 103 mg/dL (74-106); Potassium 3.9 mmol/L (3.5-5.1); Protein, Total 6.4 g/dL (6.4-8.2); Sodium Level 140 mmol/L (136-145)
--- NOTE | 2023-10-31 09:47 | DCINST_ITS ---
Discharge Instructions Diet Discharge Diet: No restrictions Activity Discharge Activity: Return to Normal Activity Weight Bearing Status: Weight bearing as tolerated Dressing / Incision Call your doctor if you observe: Fever of 101 or Higher, Coldness, Increased Pain, Numbness or Tingling, Change in Color, Inability to urinate, Inability to have a bowel movement, Shortness of breath, Dizziness, Fainting spells, Swelling in the ankles, Chest pain, Prolonged hiccupping, Increased palpitations (irregular heartbeat) and Calf discomfort Follow Up Care When: IN 2 WEEKS Test Results: Test results from this visit will be discussed in further detail at your follow- up appointment, if applicable. Discharge Plan Admission Admit Date/Time: 10/29/23 18:26 Primary Reason for Your Visit: UTI Attending Provider: Júnior Benitez Primary Care Provider: [place], [facility] Consulting Providers: Wagner Cavazos Instructions Additional Instructions / Restrictions: [facility] 2 [facility] for hepatic encephalopathy, and decompensated alcoholic liver cirrhosis Discharge Orders/Prescriptions Prescriptions: New carvedilol 6.25 mg tablet 6.25 mg PO BID 30 Days Qty: 60 2RF Rx Instructions: must administer with a meal/food ciprofloxacin HCl [Cipro] 500 mg tablet 500 mg PO BID 5 Days Qty: 10 0RF Continued furosemide 40 mg Tablet 40 mg PO DAILY spironolactone 100 mg Tablet 100 mg PO DAILY gemfibrozil 600 mg Tablet 600 mg PO DAILY multivitamin with iron-mineral Tablet 1 tab PO DAILY Jardiance 25 mg Tablet 25 mg PO DAILY PreserVision AREDS-2 250-90-40-1 mg Tablet,Chewable 1 tab PO DAILY Patient Comments: NOT SURE IF PT TAKES levothyroxine [Synthroid] 50 mcg tablet 50 mcg PO DAILY torsemide 20 mg tablet 20 mg PO DAILY trazodone 50 mg tablet 50 mg PO QHS finasteride [Proscar] 5 mg tablet 5 mg PO DAILY pantoprazole [Protonix] 40 mg tablet,delayed release (DR/EC) 40 mg PO BID lactulose 20 gram/30 mL Solution 20 g PO TID Qty: 1500 0RF Rx Instructions: Titrate the dose to keep a goal of 3 bowel movements per day Discontinued carvedilol 3.125 mg tablet 3.125 mg PO BID Referrals / Follow Up: [facility] [Primary Care Provider] - Disposition Disposition (needs filled in before D/C Order can be placed): Home, Self Care
--- NOTE | 2023-10-31 10:01 | DS.PCM_ITS ---
Providers Date of Admission: 10/29/23 Date of Discharge: 10/31/23 Primary Care Physician: [facility] Reason For Visit: ACUTE METABOLIC ENCEPHALOPATHY Diagnosis Discharge Diagnosis (1) Acute UTI: Status: Acute Code(s): N39.0 - Urinary tract infection, site not specified (2) Cirrhosis of liver: Status: Acute Code(s): K74.60 - Unspecified cirrhosis of liver Qualifiers: Hepatic cirrhosis type: alcoholic cirrhosis Ascites presence: with ascites Qualified Code(s): K70.31 - Alcoholic cirrhosis of liver with ascites (3) Acute hepatic encephalopathy: Status: Acute Code(s): K76.82 - Hepatic encephalopathy (4) Liver cancer: Status: Acute Code(s): C22.9 - Malignant neoplasm of liver, not specified as primary or secondary Qualifiers: Liver malignancy type: unspecified primary liver malignancy Qualified Code(s): C22.8 - Malignant neoplasm of liver, primary, unspecified as to type Plan BRYSON FLORES, is a 78 M with a significant history of liver status post TACE procedure, radiation and TIPS procedure who presented to the emergency department with unresponsiveness; found to have elevated ammonia; and also UTI consistent with acute metabolic encephalopathy secondary to hyperammonemia and acute cystitis. 1. Acute metabolic encephalopathy secondary to UTI and/hepatic encephalopathy: Patient is being admitted on MedSurg floor. Mental status is improved patient having bowel movement with lactulose. Rifaximin ordered. Continue treating UTI. Rectal lactulose enema discontinued as patient cannot take oral. 2. Decompensated cirrhosis most likely alcoholic status post TIPS, complicated with liver cancer status post TACE and thrombocytopenia: Patient on furosemide and spironolactone continued. Patient was in sinus tachycardia heart rate 140s. Nadolol 40 mg started and heart rate controlled. Patient has significant lower extremity swelling but not ascites therefore TIPS is functioning. Continue lactulose. Patient baseline mental status improved and is on baseline. On baseline he has difficulty in recall, memory lapses and slowing speech but otherwise he understands. I talked to patient's and discussed about his cirrhosis. He had TACE in February 2023 and follows in [facility] for cirrhosis. Patient is on carvedilol 3.125 mg twice daily increased to 6.25 mg twice daily. 3. Acute UTI due to Klebsiella oxytoca: UA abnormal, LE 500, nitrite negative. WBC more than 100 cells. 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 Full culture pending. Continue IV ceftriaxone Urine culture shows ESBL negative Klebsiella oxytoca more than 100,000 colonies, resistant to ampicillin otherwise pansensitive. Patient had 2 days of IV ceftriaxone and discharged on 5 more days of ciprofloxacin as per sensitivity. Blood culture, PCR shows Staph epidermidis, skin contamination. 4. Chronic moderate aortic stenosis: Echo shows EF 60%, no evidence of diastolic dysfunction. Left atrium mildly enlarged. Trivial MR moderate aortic stenosis. No aortic insufficiency. DVT prophylaxis. Subcutaneous Lovenox ordered. Advance care planning: Discussed with family advanced directives as well as CODE STATUS. Explained various CODE STATUS: FULL CODE, DNR CCA, DNR CCA with no intubation, and DNR CC- and what each meant. Per family patient is a full code with CPR and intubation if warranted. Order was placed. Total time of the visit including total time spent in counseling or coordination of care, (more than 50% of the total time, spent in obtaining medical information from nurses and other ancillary care providers,explaining to the patient about labs, imaging, diagnosis and management of active complex medical conditions), discussion with medical record., review of labs and imaging is 40 minutes. Discharge medication reconciliation done. Discharge follow-up instructions completed. Discharge process discussed with the patient and all questions were answered to patient's satisfaction. Follow with PCP in 1 to 2 weeks Total time spent, exact 35 minutes on discharge meds reconciliation, examination, coordination of care with nurses and ancillary staff, review of imaging and blood test and discussion with the patient on follow-up instructions. Microbiology Past 72 Hours 10/29/23 16:26 Urine Catheter - Catheter Urine Culture - Final Klebsiella oxytoca 10/29/23 16:52 Blood Culture (Wb) - Anticubital Left Bacteria Detection (PCR) - Final Staphylococcus epidermidis 10/29/23 16:52 Blood Culture (Wb) - Anticubital Left Blood Culture - Preliminary Bacillus sp., not anthracis Staphylococcus epidermidis Laboratory Results 10/30/23 09:38: Ammonia 205.0 H 10/30/23 11:41: POC Glucose 104 10/30/23 16:04: POC Glucose 130 H 10/30/23 21:35: POC Glucose 142 H 10/31/23 05:33: POC Glucose 78 10/31/23 07:00: WBC 6.9, RBC 3.23 L, Hgb 10.8 L, Hct 32.4 L, MCV 100.3 H, MCH 33.4 H, MCHC 33.3 D, RDW Std Deviation 63.2 H, RDW Coeff of Vicky 17.3 H, Plt Count 113 L, MPV 9.9, Immature Gran % (Auto) 0.600, Neut % (Auto) 81.4 H, Lymph % (Auto) 4.8 L, [place] % (Auto) 9.0, Eos % (Auto) 3.5, Baso % (Auto) 0.7, Absolute Neuts (auto) 5.6, Absolute Lymphs (auto) 0.33 L, Nucleated RBC % 0, Sodium 140, Potassium 3.9, Chloride 115 H, Carbon Dioxide 20.0 L, Anion Gap 5, BUN 12, Creatinine 0.84, Estim Creat Clear Calc 82.12, Est GFR (MDRD) Af Amer 115, Est GFR (MDRD) Non-Af 95, BUN/Creatinine Ratio 14.3, Glucose 103, Calcium 8.9, Total Bilirubin 3.60 H, AST 59 H, ALT 25, Alkaline Phosphatase 173 H, Total Protein 6.4, Albumin 1.8 L, Globulin 4.6 H, Albumin/Globulin Ratio 0.4 L Medications at Discharge Home Medications empagliflozin 25 mg tablet (Jardiance) 25 mg PO DAILY 05/17/22 furosemide 40 mg tablet 40 mg PO DAILY 05/17/22 gemfibrozil 600 mg tablet 600 mg PO DAILY 05/17/22 multivitamin with iron-mineral 1 tab PO DAILY 05/17/22 spironolactone 100 mg tablet 100 mg PO DAILY 05/17/22 vit C 250 mg-E 90 mg-zinc 40 mg-copper 1 [id number] chew tablet (PreserVision AREDS-2) 1 tab PO DAILY 05/17/22 finasteride 5 mg tablet (Proscar) 5 mg PO DAILY md ordered 10/30/23 levothyroxine 50 mcg tablet (Synthroid) 50 mcg PO DAILY hypothyroidism 10/30/23 pantoprazole 40 mg tablet,delayed release (Protonix) 40 mg PO BID stomach ulcer 10/30/23 torsemide 20 mg tablet [address] order 10/30/23 trazodone 50 mg tablet 50 mg PO QHS sleep 10/30/23 carvedilol 6.25 mg tablet 6.25 mg PO BID 1 month #60 tabs 10/31/23 ciprofloxacin HCl 500 mg tablet (Cipro) 500 mg PO BID 5 days #10 tabs 10/31/23 lactulose 20 gram/30 mL oral solution 20 g (30 mL) PO TID #1,500 mL 10/31/23 Physical Exam Narrative Seen and examined. Patient is awake alert. He had bowel movement in the morning. Patient is slightly slow to respond but mental status is much improved and came to baseline. History of liver cancer status post TACE. Decompensated liver cirrhosis status post TIPS. Physical exam General: Awake, alert oriented x3, Cooperative HEENT: Atraumatic, PERRLA, EOMI, Normocephalic Oral: No Gingival or Mucosal Lesions/ Ulcerations Neck: Supple, No JVD, Negative Carotid Bruits Chest wall/Lungs: Air entry diminished in bilateral lung bases. No crepitation/rhonchi Cardiovascular: Sinus tachycardia resolved, Normal S1, Normal S2, No M/G/R Abdomen: No distention or noticeable ascites. TIPS functioning. Bowel Sounds Present, Soft, Non Tender : No dysuria. No renal angle tenderness. No suprapubic tenderness. Extremities: 3+ bilateral pitting edema, Capillary Refill Less than 3 Seconds Skin: No rashes, No breakdown Musculoskeletal: No Tenderness to Palpation of Joints or Extremities Neurological: Cranial nerves II-XII grossly intact, DTR 2+/4. No acute focal neurological deficit. Coherent speech but slow to respond and sometimes hard to recall. Aware of the situation. Psych/Mental Status: Normal Affect, Appropriate. Weight / BMI Weight Weight: 197 lb 4.8 oz Body Mass Index (BMI) 26.7 ABG / Lab / Microbiology Data 10/31/23 07:00 10/31/23 07:00 Laboratory: Laboratory Results - last 24 hr 10/30/23 09:38: Ammonia 205.0 H 10/30/23 11:41: POC Glucose 104 10/30/23 16:04: POC Glucose 130 H 10/30/23 21:35: POC Glucose 142 H 10/31/23 05:33: POC Glucose 78 10/31/23 07:00: WBC 6.9, RBC 3.23 L, Hgb 10.8 L, Hct 32.4 L, MCV 100.3 H, MCH 33.4 H, MCHC 33.3 D, RDW Std Deviation 63.2 H, RDW Coeff of Vicky 17.3 H, Plt Count 113 L, MPV 9.9, Immature Gran % (Auto) 0.600, Neut % (Auto) 81.4 H, Lymph % (Auto) 4.8 L, [place] % (Auto) 9.0, Eos % (Auto) 3.5, Baso % (Auto) 0.7, Absolute Neuts (auto) 5.6, Absolute Lymphs (auto) 0.33 L, Nucleated RBC % 0, Sodium 140, Potassium 3.9, Chloride 115 H, Carbon Dioxide 20.0 L, Anion Gap 5, BUN 12, Creatinine 0.84, Estim Creat Clear Calc 82.12, Est GFR (MDRD) Af Amer 115, Est GFR (MDRD) Non-Af 95, BUN/Creatinine Ratio 14.3, Glucose 103, Calcium 8.9, Total Bilirubin 3.60 H, AST 59 H, ALT 25, Alkaline Phosphatase 173 H, Total Protein 6.4, Albumin 1.8 L, Globulin 4.6 H, Albumin/Globulin Ratio 0.4 L Microbiology: Microbiology 10/29/23 16:26 Urine Catheter - Catheter Urine Culture - Final Klebsiella oxytoca 10/29/23 16:52 Blood Culture (Wb) - Anticubital Left Bacteria Detection (PCR) - Final Staphylococcus epidermidis 10/29/23 16:52 Blood Culture (Wb) - Anticubital Left Blood Culture - Preliminary Bacillus sp., not anthracis Staphylococcus epidermidis Radiography Diagnostic Testing: Radiology Impression Echocardiogram 10/29/23 22:20 Interpretation Summary The estimated ejection fraction is 60 %. No evidence for diastolic dysfunction. The left atrium is mildly enlarged. Trivial mitral valve insufficiency. Moderate aortic stenosis. Ordering Physician: Wagner Cavazos Performed By: Tyrone Gonzalez RCS D/C Instructions Discharge Diet: No restrictions Weight Bearing Status: Weight bearing as tolerated Call your doctor if you observe: Fever of 101 or Higher, Coldness, Increased Pain, Numbness or Tingling, Change in Color, Inability to urinate, Inability to have a bowel movement, Shortness of breath, Dizziness, Fainting spells, Swelling in the ankles, Chest pain, Prolonged hiccupping, Increased palpitations (irregular heartbeat) and Calf discomfort When: IN 2 WEEKS Meaningful Use Info Meaningful Use Meaningful Use Diagnoses (Choose all that apply): None applicable Ischemic Stroke Statin Dosing Therapy Reference: STATIN DOSE THERAPY REFERENCE: * Patients > 75 years receive moderate or high dose statin therapy. * Patients 75 years or YOUNGER should receive HIGH intensity statin dose unless contraindicated. You will be required to document reason for non-treatment if statin daily dose does not meet guidelines. HIGH DOSE STATIN THERAPY DAILY Atorvastatin > than or = to 40 mg Rosuvastatin > than or = to 20 mg Amlodipine + Atorvastatin > than or = to 2.5/40 mg Ezetimibe + Simvastatin 10/80 mg Simvastatin 80mg Discharge Plan Admission Admit Date/Time: 10/29/23 18:26 Primary Reason for Your Visit: UTI Attending Provider: Júnior Benitez Primary Care Provider: [facility] Consulting Providers: Wagner Cavazos Instructions Additional Instructions / Restrictions: Follow-up in [facility] in 2 weeks for hepatic encephalopathy, and decompensated alcoholic liver cirrhosis Discharge Orders/Prescriptions Prescriptions: New carvedilol 6.25 mg tablet 6.25 mg PO BID 30 Days Qty: 60 2RF Rx Instructions: must administer with a meal/food ciprofloxacin HCl [Cipro] 500 mg tablet 500 mg PO BID 5 Days Qty: 10 0RF Continued furosemide 40 mg Tablet 40 mg PO DAILY spironolactone 100 mg Tablet 100 mg PO DAILY gemfibrozil 600 mg Tablet 600 mg PO DAILY multivitamin with iron-mineral Tablet 1 tab PO DAILY Jardiance 25 mg Tablet 25 mg PO DAILY PreserVision AREDS-2 250-90-40-1 mg Tablet,Chewable 1 tab PO DAILY Patient Comments: NOT SURE IF PT TAKES levothyroxine [Synthroid] 50 mcg tablet 50 mcg PO DAILY torsemide 20 mg tablet 20 mg PO DAILY trazodone 50 mg tablet 50 mg PO QHS finasteride [Proscar] 5 mg tablet 5 mg PO DAILY pantoprazole [Protonix] 40 mg tablet,delayed release (DR/EC) 40 mg PO BID lactulose 20 gram/30 mL Solution 20 g PO TID Qty: 1500 0RF Rx Instructions: Titrate the dose to keep a goal of 3 bowel movements per day Discontinued carvedilol 3.125 mg tablet 3.125 mg PO BID Referrals / Follow Up: [facility] [Primary Care Provider] - Disposition Disposition (needs filled in before D/C Order can be placed): Home, Self Care Charges/Coding Visit Charges Inpatient E&M: 19689 Disch Hosp >30min
[2023-10-31] MEDS: Spironolactone 50 MG Tablet 100 MG PO (10:30)
[2023-10-31] MEDS: Multivitamin (Healthy Eyes) Capsule 1 CAP PO (10:30)
[2023-10-31] MEDS: Enoxaparin 40 MG/0.4 ML Syringe SC (10:31)
[2023-10-31] MEDS: Furosemide 40 MG Tablet PO (10:31)
[2023-10-31] MEDS: Nadolol 40 MG Tablet PO (10:31)
[2023-10-31] MEDS: 0.9% Saline Lock 10 ML Syringe IV (11:11)
[2023-10-31] MEDS: Ceftriaxone 1 GM/50 ML BAG IV (11:11)
[2023-10-31] MEDS: 0.9% Normal Saline (250mL Bag) 250 ML 15 ML IV (11:11)
[2023-10-31 11:53] LABS: Bedside Glucose 126 mg/dL (74-106)
== END 2023-10-31 13:00 | disposition home or self-care (01) | DRG 689 ==
LOC: ED 17:34 → MS3 10-30 07:06
PROVIDERS: Admitting Provider Hospitalist; Emergency Provider Emergency Medicine; Visit Provider Internal Medicine
DX: N30.00 Acute cystitis without hematuria (principal); G93.41 Metabolic encephalopathy; E72.20 Disorder of urea cycle metabolism, unspecified; C22.8 Malignant neoplasm of liver, primary, unspecified as to type; K76.82 Hepatic encephalopathy; K70.31 Alcoholic cirrhosis of liver with ascites; I35.0 Nonrheumatic aortic (valve) stenosis; Z79.899 Other long term (current) drug therapy; Z86.718 Personal history of other venous thrombosis and embolism; Z87.891 Personal history of nicotine dependence
CPT/HCPCS: 36415; 51702; 70450; 71045; 80048; 80053; 80076; 80307; 80320; 81001; 82140; 82150; 82962; 83605; 83690; 84484; 85025; 85610; 85730; 87040; 87077; 87086; 87088; 87149; 87186; 93005; 93306; 97110; 97116; 97162; 97166; 99285; J7030; J7040; J7050; Q9957; A4216; G0480

== ENCOUNTER 2024-02-13 11:15 | Emergency (ER) | payer OTHER, SELFPAY ==
[2024-02-13 11:16] VITALS: BP 129/88; PULSE 112; RESP 18; TEMP 36.6; O2SAT 97; BMI 27.7
--- NOTE | 2024-02-13 11:41 | EKG12_ITS ---
Test Reason : Blood Pressure : / mmHG Vent. Rate : 109 BPM Atrial Rate : 109 BPM P-R Int : 170 ms QRS Dur : 098 ms QT Int : 366 ms P-R-T Axes : 061 061 051 degrees QTc Int : 492 ms Sinus tachycardia Otherwise normal ECG Confirmed by Lyndon Bledsoe ([id number]), field map editor BEREKET MARK ([id number]) on 02/15/2024 9:35:50 AM Referred By: Confirmed By:Lyndon Bledsoe
[2024-02-13] MEDS: 0.9% Normal Saline (1000mL) 1,000 ML 999 ML IV (11:54)
[2024-02-13 12:00] LABS: Absolute Lymphocyte Count 0.39 X10^3/uL (0.83-4.51); Basophil# 0.05 X10^3/uL; Basophil% 1.6 % (0-1); Eosinophil# 0.19 X10^3/uL; Eosinophils% 6.1 % (0-5); Hematocrit 24.1 % (40-54); Hemoglobin 8.7 g/dL (13.0-16.5); Lymphocyte # 0.39 X10^3/ul (0.83-4.51); Lymphocyte % 12.6 % (19-41); Mean Corp Hgb Conc 36.1 g/dL (32-36); Mean Corpuscular Hgb 36.7 pg (27.0-32.0); Mean Corpuscular Volume 101.7 fL (80-94); Mean Platelet Vol. 9.3 fl (6.2-12.0); Monocyte# 0.48 X10^3/uL; Monocyte% 15.5 % (0-10); NRBC Flagged by Analyzer 0 % (0-5); Neutrophil # 1.95 X10^3/uL (2.7-7.7); Neutrophil % 63.2 % (47-70); POSITIVE DIFFERENTIAL YES; POSITIVE MORPHOLOGY YES; Platelet Count 119 K/mm3 (150-450); RBC Distribution Width CV 24.4 % (11.6-14.6); Red Blood Count 2.37 M/mm3 (4.6-6.2); White Blood Count 3.1 K/mm3 (4.4-11.0)
[2024-02-13 12:04] LABS: Differential Indicated SCAN CRITERIA MET
--- NOTE | 2024-02-13 12:20 | EDS_ITS ---
HPI History of Present Illness Chief Complaint: Alt LOC Narrative Narrative: Patient is a 78-year-old male with past medical history of liver cancer, GERD, cirrhosis, diabetes, hypertension who presented to the emergency department the chief complaint of altered mental status. According to EMS and the patient's he took to 0.25 mg benzodiazepine tablets prior to his dental appointment this morning and became confused. Patient's is concerned that his ammonia level is elevated as well. They deny any falls or injuries. History of present illness is unobtainable from the patient secondary to his altered mental status therefore acute care caveat applies [facility] Medical History Cancer Alcohol abuse Hypertension Acute UTI Pancytopenia Diabetes mellitus MRSA (methicillin resistant staph aureus) culture positive Liver cancer GERD (gastroesophageal reflux disease) GI bleed Cirrhosis DVT (deep venous thrombosis) Home Medications ?Medication ?Instructions ?Recorded ?Last Taken ?Type empagliflozin 25 mg tablet 25 mg PO DAILY 05/17/22 10/28/23 History (Jardiance) furosemide 40 mg tablet 40 mg PO DAILY 05/17/22 10/28/23 History gemfibrozil 600 mg tablet 600 mg PO DAILY 05/17/22 10/28/23 History multivitamin with iron-mineral 1 tab PO DAILY 05/17/22 10/28/23 History spironolactone 100 mg tablet 100 mg PO DAILY 05/17/22 10/28/23 History vit C 250 mg-E 90 mg-zinc 40 1 tab PO DAILY 05/17/22 10/28/23 History mg-copper 1 [id number] chew tablet (PreserVision AREDS-2) finasteride 5 mg tablet (Proscar) 5 mg PO DAILY md ordered 10/30/23 Unknown History levothyroxine 50 mcg tablet 50 mcg PO DAILY hypothyroidism 10/30/23 Unknown History (Synthroid) pantoprazole 40 mg tablet,delayed 40 mg PO BID stomach ulcer 10/30/23 Unknown History release (Protonix) torsemide 20 mg tablet [address] order 10/30/23 Unknown History trazodone 50 mg tablet 50 mg PO QHS sleep 10/30/23 Unknown History carvedilol 6.25 mg tablet 6.25 mg PO BID 1 month #60 tabs 10/31/23 Unknown Rx ciprofloxacin HCl 500 mg tablet 500 mg PO BID 5 days #10 tabs 10/31/23 Unknown Rx (Cipro) lactulose 20 gram/30 mL oral 20 g (30 mL) PO TID #1,500 mL 10/31/23 10/28/23 Rx solution Allergy/AdvReac Type Severity Reaction Status Date / Time No Known Allergies Allergy Verified 02/13/24 11:21 Family History Other Heart disease Surgical History S/P TIPS (transjugular intrahepatic portosystemic shunt) History of J Carlos fundoplication Social History Smoking Status: Former smoker ROS ROS ED ROS Narrative Review of systems unobtainable from patient secondary to his altered mental status therefore acute care caveat applies EXAM Physical Exam Narrative Exam Narrative: General: Patient lying in bed rest comfortably did not appear to be acute Head: Atraumatic, normocephalic Eyes: PERRL bilateral, EOMI bilateral no conjunctival injection Neck: Soft, supple, trach midline Cardiovascular: Regular rate and rhythm no murmurs gallops rubs noted Respiratory: Clear to auscultation bilaterally no rales rhonchi or wheeze noted Abdomen: Soft, nondistended, nontender to palpation, sounds present x 4 Extremities: Patient moving all extremities on exam, no pedal edema noted exam, radial pulses +2/4 the bilateral upper extremities Neurological: Patient knew that he was at the hospital and the year was 2023. Skin: Warm, dry, tact Const Vital Signs: 02/13/24 11:16 02/13/24 13:00 02/13/24 15:00 Temperature 98 F Temperature Source Oral Pulse Rate 112 H 112 H 108 H Respiratory Rate 18 18 14 Blood Pressure 129/88 H 140/97 H 138/88 H Blood Pressure Mean 101 111 104 Pulse Ox 97 97 Oxygen Delivery Method Room Air MDM MDM MDM Narrative Medical decision making narrative: Patient is a 78-year-old male who presented to the emergency department chief complaint of confusion after taking benzodiazepines prior to his dental appo intment today. Patient will have a workup performed here on the differential diagnose includes but limited to elevated ammonia level, confusion secondary to benzodiazepine use in the setting of cirrhosis and liver cancer. Once workup is obtained reviewed he will be reevaluated. Patient be given IV fluids and be observed. Patient CBC was reviewed showed a white blood count of 3.1, hemoglobin was 8.7, platelet count was noted to be 119. Patient sodium normal at 142, potassium normal 3.5, creatinine normal at 0.88. Patient's total bilirubin was elevated 2.60 however is chronically elevated according to previous blood draws. Patient's lipase was normal at 31. Patient AST and ALT were 5923 respectively and his ammonia level was noted to be 46. Patient's urinalysis did not reveal any evidence infection. Patient's EKG was reviewed and independently interpreted by myself which showed sinus tachycardia the rate of 109 bpm. Patient was observed here for multiple hours and he is more awake and alert now. His would like to take him home at this point time. His change in mental status was likely secondary to the benzodiazepines that he took prior to his dental procedure today as his symptoms started about 1 hour after taking this medication according the when she arrived at bedside. He once again does have underlying liver disease. Patient tolerated oral intake. He is feeling better now would like to go home. He is advised to follow-up with his primary care physician outpatient setting. He is encouraged return for worsening symptoms or other concerns. All question concerns answered discharged home in stable condition Lab Data Labs: Laboratory Results - last 24 hr 02/13/24 02/13/24 11:25 13:20 WBC 3.1 L RBC 2.37 L Hgb 8.7 L Hct 24.1 L MCV 101.7 H MCH 36.7 H MCHC 36.1 H RDW Std Deviation 77.0 H RDW Coeff of Vicky 24.4 H Plt Count 119 L MPV 9.3 Immature Gran % (Auto) 1.000 H Neut % (Auto) 63.2 Lymph % (Auto) 12.6 L [place] % (Auto) 15.5 H Eos % (Auto) 6.1 H Baso % (Auto) 1.6 H Absolute Neuts (auto) 2.0 Absolute Lymphs (auto) 0.39 L Nucleated RBC % 0 Hypochromasia 1+ Anisocytosis 1+ Sodium 142 Potassium 3.5 Chloride 112 H Carbon Dioxide 26.0 Anion Gap 5 BUN 9 Creatinine 0.88 Estim Creat Clear Calc 78.38 Est GFR (MDRD) Af Amer 108 Est GFR (MDRD) Non-Af 89 BUN/Creatinine Ratio 10.2 Glucose 83 Calcium 8.0 L Total Bilirubin 2.60 H AST 59 H ALT 23 Alkaline Phosphatase 215 H Ammonia 46.0 H Total Protein 5.7 L Albumin 1.7 L Globulin 4.0 Albumin/Globulin Ratio 0.4 L Lipase 31 Urine Color Yellow Urine Clarity Clear Urine pH 6.5 Ur Specific [place] 1.010 Urine Protein 15 H Urine Glucose (UA) 250 H Urine Ketones Negative Urine Occult Blood 25 H Urine Nitrite Negative Urine Bilirubin Negative Urine Urobilinogen Normal Ur Leukocyte Esterase Negative Urine RBC 0 SEEN Urine WBC 0 SEEN Ur Squamous Epith Cells 0 SEEN Urine Bacteria 0 SEEN Urine Mucus 0 SEEN Discharge Plan Triage Chief Complaint: Alt LOC ED Provider: Иван Lynn Dx/Rx/DC Orders Clinical Impression: Change in mental status Prescriptions: No Action furosemide 40 mg Tablet 40 mg PO DAILY spironolactone 100 mg Tablet 100 mg PO DAILY gemfibrozil 600 mg Tablet 600 mg PO DAILY multivitamin with iron-mineral Tablet 1 tab PO DAILY Jardiance 25 mg Tablet 25 mg PO DAILY PreserVision AREDS-2 250-90-40-1 mg Tablet,Chewable 1 tab PO DAILY Patient Comments: NOT SURE IF PT TAKES levothyroxine [Synthroid] 50 mcg tablet 50 mcg PO DAILY torsemide 20 mg tablet 20 mg PO DAILY trazodone 50 mg tablet 50 mg PO QHS finasteride [Proscar] 5 mg tablet 5 mg PO DAILY pantoprazole [Protonix] 40 mg tablet,delayed release (DR/EC) 40 mg PO BID carvedilol 6.25 mg tablet 6.25 mg PO BID 30 Days Qty: 60 2RF Rx Instructions: must administer with a meal/food lactulose 20 gram/30 mL Solution 20 g PO TID Qty: 1500 0RF Rx Instructions: Titrate the dose to keep a goal of 3 bowel movements per day ciprofloxacin HCl [Cipro] 500 mg tablet 500 mg PO BID 5 Days Qty: 10 0RF [facility]errals[place] [facility] [Primary Care Provider] - Activity Restrictions/Additional Instructions: Follow-up your primary care physician outpatient setting. Return for worsening symptoms or other concerns. Print Language: [place] Disposition Disposition: Home, Self Care
[2024-02-13 12:28] LABS: ALB/GLOB Ratio 0.4 RATIO (0.9-2.4); AST(SGOT) 59 U/L (15-37); Alanine Aminotransfer ALT/SGPT 23 U/L (16-61); Albumin, Serum 1.7 g/dL (3.2-5.0); Alkaline Phosphatase 215 U/L (45-117); Anion Gap 5 (5-15); BUN 9 mg/dL (7-18); BUN/Creat Ratio 10.2 RATIO (10-20); Chloride 112 mmol/L (98-107); Creatinine, Serum 0.88 mg/dL (0.70-1.30); EST Glomerular Filtration Rate 89 mL/min (>60); Est Glom Filt Rate - Afr Amer 108 mL/min (>60); Estimated Creatinine Clearance 78.38 ml/min; Glucose 83 mg/dL (74-106); Lipase 31 U/L (13-75); Potassium 3.5 mmol/L (3.5-5.1); Protein, Total 5.7 g/dL (6.4-8.2); Sodium Level 142 mmol/L (136-145)
[2024-02-13 12:40] LABS: Anisocytosis 1+; Hypochromasia 1+
[2024-02-13 13:00] VITALS: BP 140/97; PULSE 112; RESP 18
[2024-02-13 13:24] LABS: Bacteria 0 SEEN /hpf (None Seen); Mucous, Urine 0 SEEN /hpf (<or=2+); Red Blood Cells-Urine 0 SEEN /hpf (0-5); Squamous Epithelial Cells - UA 0 SEEN /hpf (0-5); White Blood Cells 0 SEEN /hpf (0-5)
[2024-02-13 13:32] LABS: Color, Urine Yellow (Yellow); Glucose, Dipstick 250 mg/dl (Normal); Ketone-Dipstick Negative (Negative); Leukocyte Esterase-Dipstick Negative /ul (Negative); Nitrite-Dipstick Negative (Negative); Occult Blood-Urine 25 /ul (Negative); Protein-Dipstick 15 mg/dl (Negative); Urine Bilirubin Dipstick Negative (Negative); Urine Clarity Clear (Clear); Urine Urobilinogen Normal (Normal); Urine pH 6.5 (5.0 - 8.0)
[2024-02-13 15:00] VITALS: BP 138/88; PULSE 108; RESP 14; O2SAT 97
[2024-02-13 17:00] VITALS: BP 157/76; PULSE 77; RESP 18; TEMP 36.8; O2SAT 98
== END 2024-02-13 17:44 | disposition home or self-care (01) ==
PROVIDERS: Emergency Provider Emergency Medicine; Visit Provider Emergency Medicine
DX: R41.82 Altered mental status, unspecified (principal); E11.9 Type 2 diabetes mellitus without complications; Z87.891 Personal history of nicotine dependence; K76.9 Liver disease, unspecified; I10 Essential (primary) hypertension; Z86.718 Personal history of other venous thrombosis and embolism; Z86.14 Personal history of Methicillin resistant Staphylococcus aureus infection; Z85.05 Personal history of malignant neoplasm of liver
CPT/HCPCS: 80053; 81001; 82140; 83690; 85025; 93005; 96360; 99283; A4216

== ENCOUNTER 2024-03-30 18:27 | Emergency (ER) | payer OTHER, SELFPAY ==
[2024-03-30 18:29] VITALS: BP 115/69; PULSE 74; RESP 18; TEMP 36.7; O2SAT 95; BMI 28.0
[2024-03-30 19:06] VITALS: BP 115/69; PULSE 74; RESP 18; TEMP 36.7; O2SAT 95
--- NOTE | 2024-03-30 19:35 | RAD_ITS ---
EXAM: XR CHEST, 2 VIEWS CLINICAL INDICATION: cough TECHNIQUE: Frontal and lateral views of the chest. COMPARISON: 10/29/[address] chest, 05/17/2022. FINDINGS: LUNGS AND PLEURAL SPACES: Right-sided pleural calcifications are again identified. Suspect small right pleural effusion with blunting of the costophrenic angle. No pneumothorax. HEART: Borderline cardiomegaly and/or pericardial effusion. MEDIASTINUM: Central airways and mediastinal contour are unremarkable. BONES/JOINTS: Degenerative changes in the spine and shoulders. No acute fracture. SOFT TISSUES: No significant abnormality. VASCULATURE: Atherosclerosis. UPPER ABDOMEN: Extensive postprocedural changes in the upper abdomen. OTHER FINDINGS: Cholelithiasis. RAD/Chest PA and Lateral IMPRESSION: 1. Borderline cardiomegaly and/or pericardial effusion. 2. Right-sided pleural calcifications are again identified. 3. Suspect small right pleural effusion with blunting of the costophrenic angle. 4. Cholelithiasis. Electronically Signed: Alejandro Cowan DO at 20:34 EST ,
--- NOTE | 2024-03-30 19:37 | EX.ED.VIS.UR ---
HPI HPI - URI History of Present Illness Chief Complaint: Cough Informant: patient and spouse/S.O. Narrative Narrative: Here with spouse for evaluation after discussing with her physicians at [place]. Productive cough starting yesterday. No fevers. States wheezing with dyspnea when he coughs. Denies COPD or asthma history. History of liver cirrhosis and liver cancer history. He had previous radiation no chemo treatment. He has used inhaler before. There is sent here to rule out pneumonia. Prior similar symptoms: Yes ROS ROS ED Constitutional Constitutional ED: Denies chills, fever(s) or sweats Eyes Eyes: Denies change in vision ENT ENT ED: Denies dysphagia or sore throat Cardiovascular Cardiovascular: Denies chest pain, leg edema, palpitations or racing heartbeat Respiratory/Chest Respiratory/Chest: Reports cough and dyspnea; Denies dyspnea on exertion Gastrointestinal Gastrointestinal: Denies abdominal pain, diarrhea, nausea or vomiting Genitourinary Genitourinary ED: Denies dysuria, hematuria or urinary frequency Musculoskeletal Musculoskeletal: Denies back pain, extremity pain or neck pain Integumentary Denies rash or wounds Neurologic Neurologic: Denies headache(s), paresthesias or weakness [facility] Medical History Cancer Alcohol abuse Hypertension Acute UTI Pancytopenia Diabetes mellitus MRSA (methicillin resistant staph aureus) culture positive Liver cancer GERD (gastroesophageal reflux disease) GI bleed Cirrhosis DVT (deep venous thrombosis) Home Medications ?Medication ?Instructions ?Recorded ?Last Taken ?Type empagliflozin 25 mg tablet 25 mg PO DAILY 05/17/22 10/28/23 History (Jardiance) furosemide 40 mg tablet 40 mg PO DAILY 05/17/22 10/28/23 History gemfibrozil 600 mg tablet 600 mg PO DAILY 05/17/22 10/28/23 History multivitamin with iron-mineral 1 tab PO DAILY 05/17/22 10/28/23 History spironolactone 100 mg tablet 100 mg PO DAILY 05/17/22 10/28/23 History vit C 250 mg-E 90 mg-zinc 40 1 tab PO DAILY 05/17/22 10/28/23 History mg-copper 1 [id number] chew tablet (PreserVision AREDS-2) finasteride 5 mg tablet (Proscar) 5 mg PO DAILY md ordered 10/30/23 Unknown History levothyroxine 50 mcg tablet 50 mcg PO DAILY hypothyroidism 10/30/23 Unknown History (Synthroid) pantoprazole 40 mg tablet,delayed 40 mg PO BID stomach ulcer 10/30/23 Unknown History release (Protonix) torsemide 20 mg tablet [address] order 10/30/23 Unknown History trazodone 50 mg tablet 50 mg PO QHS sleep 10/30/23 Unknown History carvedilol 6.25 mg tablet 6.25 mg PO BID 1 month #60 tabs 10/31/23 Unknown Rx lactulose 20 gram/30 mL oral 20 g (30 mL) PO TID #1,500 mL 10/31/23 10/28/23 Rx solution benzonatate 100 mg capsule 100 mg PO TID PRN cough #20 caps 03/30/24 Unknown Rx Allergy/AdvReac Type Severity Reaction Status Date / Time No Known Allergies Allergy Verified 03/30/24 18:30 Family History Other Heart disease Surgical History S/P TIPS (transjugular intrahepatic portosystemic shunt) History of J Carlos fundoplication Social History Smoking Status: Former smoker EXAM Physical Exam Const Vital Signs: 03/30/24 18:29 03/30/24 19:06 03/30/24 20:22 Temperature 98.1 F 98.1 F Temperature Source Oral Temporal Pulse Rate 74 74 Respiratory Rate 18 18 Respiratory Effort Normal Non-Labored Respiratory Depth Normal Respiratory Pattern Normal Blood Pressure 115/69 115/69 Blood Pressure Mean 84 84 Pulse Ox 95 95 Oxygen Delivery Method Room Air Room Air Room Air 03/30/24 20:26 Temperature Temperature Source Pulse Rate 77 Respiratory Rate 18 Respiratory Effort Respiratory Depth Respiratory Pattern Blood Pressure Blood Pressure Mean Pulse Ox 96 Oxygen Delivery Method Room Air Positive well nourished and well developed General Appearance ED: well developed and NAD HEENT Reports moist mucous membranes normocephalic and atraumatic Eyes EOMs intact bilaterally and conjunctivae normal General Eye ED: Yes normal appearance of both eyes Neck no lymphadenopathy and supple General: Negative for tenderness Chest Wall Chest: Negative for tenderness Resp normal respiratory effort and normal air movement Resp Narrative: Symmetric breath sounds. No active wheezing. Effort and Inspection: symmetric chest movement; Negative for respiratory distress Cardio regular rate, regular rhythm and no murmurs Peripheral Pulses: pulses 2+ throughout GI normal to inspection, nondistended, normoactive bowel sounds and non-tender Palpation: Negative for guarding or rebound tenderness present Back/Spine no CVA tenderness and no thoracic nor lumbar tenderness Extremity normal to inspection General Extremety ED: Negative for edema or tenderness General Extremity: Negative for edema Neuro oriented x3 and no sensory deficits noted Sensorium / Orientation: awake and alert Skin no rashes or lesions noted and no wounds MDM MDM MDM Narrative Medical decision making narrative: Interventions / MDM: Differential diagnosis: Viral upper respiratory infection Diagnosis considered but do not suspect: Pneumonia however x-ray negative. My EKG interpretation: N/A Imaging independently reviewed and interpreted by myself: 2 view chest x-ray: Chronic calcification right upper lobe small pleural effusion. No infiltrate. Also read by radiology. External documents reviewed: N/A Test considered but not ordered:N/A ED course: Vital stable nontoxic. No wheezing on exam. Reported wheezing at home. No COPD or asthma history. Order for albuterol MDI in the ED for use and dispense. Two-view chest x-ray ordered. COVID, RSV, influenza further evaluation. Chest x-ray negative for any infiltrates small pleural effusion. Viral testing negative. Reassured on findings. He will use inhaler as needed for wheezing. Prescription for antitussives written. Discussed cough can last 2 to 3 weeks. Discussed adjunct therapies at home. All questions were answered. Re-evaluation: stable Disposition discussed with patient/family/significant other: Patient is send mother. Case discussed with consulting clinician: N/A This note was generated with [employer] dictation software. It may contain incorrect words, spelling, and punctuation that were not noted in checking the note before signing. Radiography Diagnostic Testing: Clinical Impression(s) from Imaging Studies Chest X-Ray 03/30/24 19:35 IMPRESSION: 1. Borderline cardiomegaly and/or pericardial effusion. 2. Right-sided pleural calcifications are again identified. 3. Suspect small right pleural effusion with blunting of the costophrenic angle. 4. Cholelithiasis. Electronically Signed: Alejandro Cowan DO at 20:34 EST , Discharge Plan Triage Chief Complaint: Cough ED Provider: Almas Smith Dx/Rx/DC Orders Clinical Impression: Viral URI with cough, Cirrhosis of liver Instructions: ED URI, Viral, No Abx (Adult) Prescriptions: New benzonatate 100 mg capsule 100 mg PO TID PRN (Reason: cough) Qty: 20 0RF No Action furosemide 40 mg Tablet 40 mg PO DAILY spironolactone 100 mg Tablet 100 mg PO DAILY gemfibrozil 600 mg Tablet 600 mg PO DAILY multivitamin with iron-mineral Tablet 1 tab PO DAILY Jardiance 25 mg Tablet 25 mg PO DAILY PreserVision AREDS-2 250-90-40-1 mg Tablet,Chewable 1 tab PO DAILY Patient Comments: NOT SURE IF PT TAKES levothyroxine [Synthroid] 50 mcg tablet 50 mcg PO DAILY torsemide 20 mg tablet 20 mg PO DAILY trazodone 50 mg tablet 50 mg PO QHS finasteride [Proscar] 5 mg tablet 5 mg PO DAILY pantoprazole [Protonix] 40 mg tablet,delayed release (DR/EC) 40 mg PO BID carvedilol 6.25 mg tablet 6.25 mg PO BID 30 Days Qty: 60 2RF Rx Instructions: must administer with a meal/food lactulose 20 gram/30 mL Solution 20 g PO TID Qty: 1500 0RF Rx Instructions: Titrate the dose to keep a goal of 3 bowel movements per day Primary Care Provider: [facility] Referrals: [facility] [Primary Care Provider] - 1-2 Weeks Activity Restrictions/Additional Instructions: X-ray negative. COVID, influenza, RSV negative. Use inhaler as needed for wheezing. Vapor rubs or humidifier helps with cough symptoms. May try prescription cough suppressants. Your cough may last 2 to 3 weeks. Follow-up your doctor. Print Language: Turkish Disposition Disposition: Home, Self Care Discharge Date/Time: 03/30/24 21:55
[2024-03-30] MEDS: Albuterol Sulfate 8 gm Inhaler (60 puffs) 2 PUFF INHALATION (20:20)
[2024-03-30 20:26] VITALS: PULSE 77; RESP 18; O2SAT 96
== END 2024-03-30 21:55 | disposition home or self-care (01) ==
PROVIDERS: Emergency Provider Emergency Medicine; Visit Provider Emergency Medicine
DX: J06.9 Acute upper respiratory infection, unspecified (principal); K74.60 Unspecified cirrhosis of liver; E11.9 Type 2 diabetes mellitus without complications; I10 Essential (primary) hypertension; Z87.891 Personal history of nicotine dependence; K21.9 Gastro-esophageal reflux disease without esophagitis
CPT/HCPCS: 71046; 87631; 99282

== ENCOUNTER 2024-09-12 16:32 | Inpatient (IN) | payer OTHER, SELFPAY ==
[2024-09-12] VITALS (8 sets, daily range): BP systolic 114–143; BP diastolic 56–76; PULSE 73–78; RESP 14–18; TEMP 36.4–37; O2SAT 96–98; BMI 25.2; BMI 26.9
--- NOTE | 2024-09-12 17:05 | EKG12_ITS ---
Test Reason : ALT LOC Blood Pressure : */* mmHG Vent. Rate : 75 BPM Atrial Rate : * BPM P-R Int : * ms QRS Dur : 94 ms QT Int : 438 ms P-R-T Axes : * 62 94 degrees QTcB Int : 489 ms Normal sinus rhythm with PAC's Prolonged QT Abnormal ECG Confirmed by Lyndon Bledsoe ([id number]), business editor JEREMY BELL ([id number]) on 09/13/2024 9:16:01 AM Referred By: Confirmed By: Lyndon Bledsoe
--- NOTE | 2024-09-12 17:05 | CT_ITS ---
PROCEDURE: BRAIN/HEAD WITHOUT CONTRAST 09/12/2024 REASON FOR EXAM: ALTERED MENTAL STATUS TECHNIQUE: Head CT without intravenous contrast. Coronal and Sagittal reconstruction series were provided. One or more dose reduction techniques were used (e.g., Automated exposure control, adjustment of the mA and/or kV according to patient size, use of iterative reconstruction technique. RADIATION DOSE SUMMARY: CTDlvol: 47.06 mGy DLP: 872.68 mGycm COMPARISON: Head CT 10/29/2023. FINDINGS: Brain and CSF Spaces: A small intermediate density left subdural fluid collection is newly seen since the prior study of 10/29/2023. No significant midline shift is seen. No parenchymal hemorrhage is noted. Ventricles appear symmetric and within the normal range. Mild generalized cerebral atrophy is also noted. No orbital pathology is noted. Sinuses/Mastoids: Clear at visualized levels Bones: No acute osseous process is seen. CT/Brain/Head without Contrast IMPRESSION: 1. Small intermediate density left subdural collection is now seen 2. In the presence of mild generalized cerebral atrophy, no significant midline shift is seen. Ventricles appear symmetric and within the normal range. 3. No parenchymal hemorrhage is noted. Reading Location: [place] [id number]
--- NOTE | 2024-09-12 17:08 | EDS_ITS ---
HPI History of Present Illness Chief Complaint: Confusion Informant: patient and EMS Narrative Narrative: 79-year-old with history of cirrhosis who has been very confused over the last couple days according to EMS per , has done this before when he stopped sonia ing his lactulose. History is very limited from the patient as he is very confused, however nurse staff here in the ER states he confirmed to her that he stopped taking his lactulose. He denies any complaints right now. [facility] Medical History Cancer Alcohol abuse Hypertension Acute UTI Pancytopenia Diabetes mellitus MRSA (methicillin resistant staph aureus) culture positive Liver cancer GERD (gastroesophageal reflux disease) GI bleed Cirrhosis DVT (deep venous thrombosis) Home Medications ?Medication ?Instructions ?Recorded ?Last Taken ?Type empagliflozin 25 mg tablet 25 mg PO DAILY 05/17/22 History (Jardiance) furosemide 40 mg tablet 40 mg PO DAILY 05/17/2210/03 History gemfibrozil 600 mg tablet 600 mg PO DAILY 05/17/22 History multivitamin with iron-mineral 1 tab PO DAILY 05/17/22 10/28/23 History spironolactone 100 mg tablet 100 mg PO DAILY 05/17/22 10/28/23 History vit C 250 mg-E 90 mg-zinc 40 1 tab PO DAILY 05/17/22 0 10/28/23 History mg-copper 1 [id number] chew tablet (PreserVision AREDS-2) finasteride 5 mg tablet (Proscar) 5 mg PO DAILY ord ered 10/30/23 Unknown History levothyroxine 50 mcg tablet 50 mcg PO DAILY hypothyroi dism 10/30/23 Unknown History (Synthroid) pantoprazole 40 mg tablet,delayed 40 mg PO BID stomach ulcer 10/30/23 Unknown History release (Protonix) torsemide 20 mg tablet [address] order 10/03 12/25 Unknown History trazodone 50 mg tablet 50 mg PO QHS sleep 10/30/23 Unknown History carvedilol 6.25 mg tablet 6.25 mg PO BID 1 month #60 t abs 10/31/23 Unknown Rx lactulose 20 gram/30 mL oral 20 g (30 mL) PO TID #1,50 0 mL 10/31/23 10/28/23 Rx solution oxycodone 5 mg tablet 5 mg PO Q6H PRN PRN pain 04/27 Unknown History Allergy/AdvReac Type Severity Reaction Status Date / Time No Known Allergies Allergy Verified 09/12/24 16:35 Family History Other Heart disease Surgical History S/P TIPS (transjugular intrahepatic portosystemic shunt) History of J Carlos fundoplication Social History Smoking Status: Former smoker ROS ROS ED Review of Systems ROS Unobtainable: due to mental status Cardiovascular Cardiovascular: Denies chest pain Gastrointestinal Gastrointestinal: Denies abdominal pain or nausea Musculoskeletal Musculoskeletal: Denies back pain or neck pain Neurologic Neurologic: Reports as per HPI and confusion; Denies headache(s) EXAM Physical Exam Const Vital Signs: 09/12/24 16:33 09/12/24 16:40 09/12/24 16:54 Temperature 97.6 F L 98.2 F 98.2 F Temperature Source Temporal Oral Oral Pulse Rate 78 75 Respiratory Rate 16 14 Blood Pressure 114/70 125/65 H Blood Pressure Mean 84 85 Pulse Ox 97 97 Oxygen Delivery Method Room Air Room Air 09/12/24 18:01 09/12/24 18:04 Temperature 98.6 F 98.6 F Temperature Source Oral Pulse Rate 77 73 Respiratory Rate 16 16 Blood Pressure 143/76 H 143/76 H Blood Pressure Mean 98 98 Pulse Ox 97 96 Oxygen Delivery Method Room Air Positive well nourished and well developed General Appearance ED: well developed and NAD HEENT Reports moist mucous membranes normocephalic and atraumatic Eyes PERRL and EOMs intact bilaterally General Eye ED: Yes scleral icterus Neck full ROM and supple Resp normal respiratory effort and clear to auscultation bilaterally Cardio regular rate and regular rhythm Heart Sounds: murmur systolic IV/ crescendo-decrescendo left sternal border GI non-tender and non-distended Auscultation: normoactive bowel sounds Palpation: soft Back/Spine no CVA tenderness General Back: other FROM Extremity normal to inspection General Extremety ED: Negative for edema, pulses abnormal or tenderness General Extremity: Negative for edema or pulses abnormal Neuro CN's II-XII intact bilaterally and no sensory deficits noted Neuro Narrative: Very confused. Answers Zackary to most questions, even when asked to squeeze my hand. He will not follow commands, but on his own is moving all 4 extremities. Sensorium / Orientation: awake, alert and orientation impaired Motor Exam: strength 5/5 throughout Skin no rashes or lesions noted and no wounds MDM MDM MDM Narrative Medical decision making narrative: Obtain ammonia which is very high, as well as other tests to rule out other pathology making this patient encephalopathic. His alcohol is negative, he has hyperbilirubinemia which is stable, anemia which is stable, I obtained a CT of the head which my interpretation shows no acute hemorrhage and chest x-ray which on my interpretation shows no pneumonia, there does appear to be a right upper lobe mass that appears stable compared with his prior. His EKG shows a sinus rhythm with PACs but otherwise unremarkable. Still waiting on urine, I gave him a dose of oral lactulose and I think stable for us to admit him to med-surg for continued care, he is extremely confused and not appropriate for discharge home at this time. Lab Data Attestation: I reviewed the patient's lab results. Labs: Laboratory Results - last 24 hr 09/12/24 09/12/24 16:55 17:32 WBC 5.2 RBC 2.41 L Hgb 8.5 L Hct 23.3 L MCV 96.7 H MCH 35.3 H MCHC 36.5 H RDW Std Deviation 62.1 H RDW Coeff of Vicky 19.8 H Plt Count 160 MPV 10.0 Immature Gran % (Auto) 1.000 H Neut % (Auto) 70.9 H Lymph % (Auto) 12.2 L Coffee % (Auto) 12.8 H Eos % (Auto) 2.1 Baso % (Auto) 1.0 Absolute Neuts (auto) 3.7 Absolute Lymphs (auto) 0.63 L Nucleated RBC % 0 Sodium 133 Potassium 4.6 Chloride 104 Carbon Dioxide 22.2 Anion Gap 7 BUN 24 H Creatinine 1.10 Estim Creat Clear Calc 61.73 Est GFR (MDRD) Non-Af 69 BUN/Creatinine Ratio 21.5 H Glucose 95 Calcium 8.3 Total Bilirubin 2.08 H AST 47 H ALT 18 Alkaline Phosphatase 170 H Ammonia 174.0 H Total Protein 5.8 L Albumin 2.1 L Globulin 3.7 Albumin/Globulin Ratio 0.6 L Ethyl Alcohol < 10.1 Rhythm Strip Rhythm Strip: Sinus Rhythm Rate: 75 Ectopy: PAC(s) EKG Initial EKG: Attestation: I personally reviewed and interpreted this EKG as follows: Interpretation: Sinus Rhythm and No Acute Injury Pattern Comments: PACs. No AV block. Normal axis. Management Discussion w/another healthcare provider: Hospitalist Discharge Plan Dx/Rx/DC Orders Clinical Impression: Acute hepatic encephalopathy, Cirrhosis of liver, Anemia Disposition Disposition: Acute Care Hospital [facility]
[2024-09-12] MEDS: Lactulose 20 GM/30 ML UDC 10 GM PO (17:30)
--- NOTE | 2024-09-12 17:30 | RAD_ITS ---
EXAM: XR Chest, 1 View CLINICAL INDICATION: ALTERED MENTAL STATUS TECHNIQUE: Frontal view of the chest. COMPARISON: XR Chest dated 03/30/2024 FINDINGS: LUNGS AND PLEURAL SPACES: Plaque of the right mid lung field, likely calcified pleura, better demonstrated on CT chest dated 05/17/2022. HEART: Cardiomegaly with mild congestion. MEDIASTINUM: Unremarkable. Normal mediastinal contour. BONES/JOINTS: Unremarkable. No acute fracture. RAD/Chest 1 View (Portable) IMPRESSION: Cardiomegaly with mild congestion. Reading Location: [id number]
[2024-09-12 17:46] LABS: ALB/GLOB Ratio 0.6 RATIO (0.9-2.4); AST(SGOT) 47 U/L (<=37); Alanine Aminotransfer ALT/SGPT 18 U/L (<=46); Albumin, Serum 2.1 g/dL (3.4-4.8); Alcohol, Blood (Medical)-Serum < 10.1 mg/dL (<=10.0); Alkaline Phosphatase 170 U/L (40-129); Anion Gap 7 (5-15); BUN 24 mg/dL (4-19); BUN/Creat Ratio 21.5 RATIO (10-20); Calcium,Total 8.3 mg/dL (7.6-11.0); Carbon Dioxide 22.2 mmol/L (21.0-32.0); Chloride 104 mmol/L (98-108); EST Glomerular Filtration Rate 69 (>60); Estimated Creatinine Clearance 61.73 ml/min (50-250); Globulin 3.7 g/dL (2.2-4.2); Glucose 95 mg/dL (70-99); Potassium 4.6 mmol/L (3.3-5.1); Protein, Total 5.8 g/dL (5.9-8.4); Sodium Level 133 mmol/L (133-145); Total Bilirubin 2.08 mg/dL (0.00-1.30)
[2024-09-12 17:53] LABS: Absolute Lymphocyte Count 0.63 X10^3/uL (0.83-4.51); Absolute Neutrophil Count 3.7 X10^3/uL (2.0-7.7); Basophil# 0.05 X10^3/uL; Eosinophil# 0.11 X10^3/uL; Eosinophils% 2.1 % (0-5); Hematocrit 23.3 % (40-54); Hemoglobin 8.5 g/dL (13.0-16.5); Lymphocyte # 0.63 X10^3/ul (0.83-4.51); Lymphocyte % 12.2 % (19-41); Mean Corp Hgb Conc 36.5 g/dL (32-36); Mean Corpuscular Hgb 35.3 pg (27.0-32.0); Mean Corpuscular Volume 96.7 fL (80-94); Monocyte# 0.66 X10^3/uL; Monocyte% 12.8 % (0-10); NRBC Flagged by Analyzer 0 % (0-5); Neutrophil # 3.65 X10^3/uL (2.7-7.7); Neutrophil % 70.9 % (47-70); Platelet Count 160 K/mm3 (150-450); RBC Distribution Width CV 19.8 % (11.6-14.6); RBC Distribution Width SD 62.1 fl (35.1-43.9); Red Blood Count 2.41 M/mm3 (4.6-6.2); White Blood Count 5.2 K/mm3 (4.4-11.0)
[2024-09-12 17:59] LABS: Bacteria 0 SEEN /hpf (None Seen); Mucous, Urine 0 SEEN /hpf (<or=2+)
--- NOTE | 2024-09-12 18:10 | PCM.HP.STD ---
HPI - General General Date of Admission: 09/12/24 Date of Service: 09/12/24 Chief Complaint: Confusion, not taking lactulose. HPI Narrative The patient is a 79 y/o M w/ PMHx: Hypothyroidism, BPH with obstructive pathology, CKD stage II, Chronic macrocytic anemia, Chronic back pain, Questionable Hx Liver cancer per prior chart documentation s/p TACE, EtOH associated cirrhotic liver s/p TIPS, GERD status post J Carlos w/ Hx GI bleed, HTN, HLD, Diabetes mellitus type II, Hx VTE, Former EtOH abuse, Former tobacco use who presents to the [facility] ED on 09/12/2024 with history of increased confusion over the last 2 to 3 days per his which is occurred previously primarily when he stopped taking his lactulose prompting her to eventually call EMS prompting ED transition for evaluation given concern for likely hepatic encephalopathy. Workup in the ED included T97.6 Temporal, heart rate 78, BP 114/70, respiratory rate 16, 97% on room air with most recent repeat vitals T98.6 Oral, heart rate 77, BP 143/76, respiratory rate 16, 97% room air, CBC with WBC 5.2, hemoglobin 8.5, MCV 97.6, platelet 160 with increased immature granulocytes and lymphopenia, CMP with BUN/creat 24/1.10, GFR 69, T. bili 2.08, AST/ALT 47/18, alk phos 170, ammonia 174, ethyl alcohol less than 10.1, urinalysis pending upon requested evaluation of patient, CT head with no acute intracranial findings but final read pending per radiology, chest x-ray with no acute cardiopulmonary findings however final read pending per radiology, EKG with sinus rhythm with PAC with no acute evidence of ischemia. In the ED patient ordered lactulose 10 g p.o. x 1 however suspect this will need to be transition to per rectal regimen. Patient in the ED does arouse and will answer some questions but quickly falls back asleep. [facility] Medical History Hypothyroidism Cancer Alcohol abuse Hypertension Acute UTI Pancytopenia Diabetes mellitus MRSA (methicillin resistant staph aureus) culture positive Liver cancer GERD (gastroesophageal reflux disease) GI bleed Cirrhosis DVT (deep venous thrombosis) Home Medications ?Medication ?Instructions ?Recorded ?Last Taken ?Type empagliflozin 25 mg tablet 25 mg PO DAILY 05/17/22 10/28/23 History (Jardiance) furosemide 40 mg tablet 40 mg PO DAILY 05/17/22 10/28/23 History gemfibrozil 600 mg tablet 600 mg PO DAILY 05/17/22 10/28/23 History multivitamin with iron-mineral 1 tab PO DAILY 05/17/22 10/28/23 History spironolactone 100 mg tablet 100 mg PO DAILY 05/17/22 10/28/23 History vit C 250 mg-E 90 mg-zinc 40 1 tab PO DAILY 05/17/22 10/28/23 History mg-copper 1 mg-flfhbt-bfucil chew tablet (PreserVision AREDS-2) finasteride 5 mg tablet (Proscar) 5 mg PO DAILY md ordered 10/30/23 Unknown History levothyroxine 50 mcg tablet 50 mcg PO DAILY hypothyroidism 10/30/23 Unknown History (Synthroid) pantoprazole 40 mg tablet,delayed 40 mg PO BID stomach ulcer 10/30/23 Unknown History release (Protonix) torsemide 20 mg tablet [address] order 10/30/23 Unknown History trazodone 50 mg tablet 50 mg PO QHS sleep 10/30/23 Unknown History carvedilol 6.25 mg tablet 6.25 mg PO BID 1 month #60 tabs 10/31/23 Unknown Rx lactulose 20 gram/30 mL oral 20 g (30 mL) PO TID #1,500 mL 10/31/23 10/28/23 Rx solution oxycodone 5 mg tablet 5 mg PO Q6H PRN PRN pain 09/12/24 Unknown History Allergy/AdvReac Type Severity Reaction Status Date / Time No Known Allergies Allergy Verified 09/12/24 16:35 Family History Mother Heart disease Father Heart disease Surgical History S/P TIPS (transjugular intrahepatic portosystemic shunt) History of J Carlos fundoplication Social History household members: spouse Smoking Status: Former smoker alcohol intake: former substance use type: does not use ROS Review of Systems ROS Unobtainable: due to encephalopathy Vital Signs Vital Signs Vital Signs: 09/12/24 16:33 09/12/24 16:40 09/12/24 16:54 Temperature 97.6 F L 98.2 F 98.2 F Temperature Source Temporal Oral Oral Pulse Rate 78 75 Respiratory Rate 16 14 Blood Pressure 114/70 125/65 H Blood Pressure Mean 84 85 Pulse Ox 97 97 Oxygen Delivery Method Room Air Room Air 09/12/24 18:01 09/12/24 18:04 Temperature 98.6 F 98.6 F Temperature Source Oral Pulse Rate 77 73 Respiratory Rate 16 16 Blood Pressure 143/76 H 143/76 H Blood Pressure Mean 98 98 Pulse Ox 97 96 Oxygen Delivery Method Room Air Weight Weight: 185 lb 13.595 oz Body Mass Index (BMI) 25.2 Physical Exam Narrative Physical Examination: General: Patient will awaken to stimuli, intermittently alert but quickly falls back asleep, oriented to self and , seated upright in ED, no acute distress. Skin: Normal color, normal turgor, no icterus, no cyanosis except occasional stage ecchymoses, abrasion. HEENT: AT/NC, EOM appear intact but difficult exam as falling back asleep quickly with encephalopathy as noted, PERRLA, mildly dry MM, no carotid bruits or JVD noted. Lungs: Mildly diminished, greater bases, appropriate effort, no rales, ronchi or wheezing. Heart: Regular rate and rhythm; no gallop, rub audible. Abdomen: Soft, NTTP, no significant fluid wave, no marked distention, hyperactive BS, + HM. Extremities: No cyanosis, no clubbing, mild ankle to distal lam mildly pitting edema. Neurological: Patient will awaken to stimuli, intermittently alert but quickly falls back asleep, oriented to self and , seated upright in ED, no acute distress, cognitive function not baseline intact; pupils equally reactive to light and accommodation, cranial nerves appear normal however difficult assessment given encephalopathy, spontaneously moving extremities, strength severely globally decreased secondary to acute presentation. Psychiatric: Affect appears flat, encephalopathic, no acute evidence of depressive or anxiety feelings. Results Lab / Micro Data 09/12/24 17:32 09/12/24 16:55 Labs: Laboratory Results - last 24 hr 09/12/24 16:55: Sodium 133, Potassium 4.6, Chloride 104, Carbon Dioxide 22.2, Anion Gap 7, BUN 24 H, Creatinine 1.10, Estim Creat Clear Calc 61.73, Est GFR (MDRD) Non-Af 69, BUN/Creatinine Ratio 21.5 H, Glucose 95, Calcium 8.3, Total Bilirubin 2.08 H, AST 47 H, ALT 18, Alkaline Phosphatase 170 H, Ammonia 174.0 H, Total Protein 5.8 L, Albumin 2.1 L, Globulin 3.7, Albumin/Globulin Ratio 0.6 L, Ethyl Alcohol < 10.1 09/12/24 17:32: WBC 5.2, RBC 2.41 L, Hgb 8.5 L, Hct 23.3 L, MCV 96.7 H, MCH 35.3 H, MCHC 36.5 H, RDW Std Deviation 62.1 H, RDW Coeff of Vicky 19.8 H, Plt Count 160, MPV 10.0, Immature Gran % (Auto) 1.000 H, Neut % (Auto) 70.9 H, Lymph % (Auto) 12.2 L, [place] % (Auto) 12.8 H, Eos % (Auto) 2.1, Baso % (Auto) 1.0, Absolute Neuts (auto) 3.7, Absolute Lymphs (auto) 0.63 L, Nucleated RBC % 0 Rhythm Strip Rhythm Strip: Sinus Rhythm Rate: 75 Ectopy: PAC(s) Assessment & Plan Assessment/Plan (1) Acute hepatic encephalopathy: PLAN: Plan The patient is a 79 y/o M w/ PMHx: Hypothyroidism, BPH with obstructive pathology, CKD stage II, Chronic macrocytic anemia, Chronic back pain, Hx Liver cancer per prior chart documentation s/p TACE, EtOH associated cirrhotic liver s/p TIPS, GERD status post J Carlos w/ Hx GI bleed, HTN, HLD, Diabetes mellitus type II, Hx VTE, Former EtOH abuse, Former tobacco use who presents to the [facility] ED on 09/12/2024 with history of increased confusion over the last 2 to 3 days per his which is occurred previously primarily when he stopped taking his lactulose prompting her to eventually call EMS prompting ED transition for evaluation given concern for likely hepatic encephalopathy. #1. Acute Hepatic Encephalopathy secondary to lactulose noncompliance with hepatic cirrhosis with concurrent former alcohol abuse history complicated by prior liver cancer s/p TACE per prior chart documentation: Will admit to [facility] given stable vital signs, n.p.o. status until oral intake safer, initiate aggressive per rectal lactulose with de-escalation once improving to oral regimen, trend ammonia level, maintain on aspiration precautions, fall precautions, continue once oral intake safe home Lasix, spironolactone, Coreg home regimen. Encourage continued sobriety. #2. Hypertension: Continue home regimen including Coreg, Lasix, spironolactone with hold parameters as needed, PRN hydralazine. #3. Hyperlipidemia: Not on statin therapy, likely secondary to underlying liver disease, defer to outpatient. #4. Diabetes mellitus type II: Hold oral home regimen, NPO now however once patient clinically improving will allow ADA diet, accu checks w/ ISS. #5. Chronic macrocytic anemia: Admission hemoglobin 8.5, MCV 96.7, baseline hemoglobin similar, continue to trend CBC #6. Chronic Kidney Disease Stage II per GFR trending: Admission BUN/Cr 24/1.10, GFR 69, baseline renal function primarily 0.7-1.1 although has vacillated, repeat BMP in AM. #7. GERD with history GI bleed: Status post previous J Carlos, maintain on IV PPI until improving and ADA diet transition. #8. History of VTE: Currently not chronically anticoagulated, will maintain on chemoprophylaxis. #9. Former tobacco use: Encourage continued tobacco cessation. #10. BPH with obstructive pathology: Will continue patient home finasteride regimen #11. Hypothyroidism: Will continue patient on levothyroxine regimen. #12. DVT prophylaxis: Heparin. #13. CODE status: Patient MARIANO is his who is present and living will is currently in place per her report. Discussed CODE status at length including difference between FULL code, DNR-CCA and DNR-CC status. Following discussions about the differences in these status, requested he be maintained Full Code status. Charges/Coding Visit Charges Inpatient E&M: 66010 Init Hosp L3
[2024-09-12 18:27] LABS: Color, Urine Yellow (Yellow); Glucose, Dipstick 250 mg/dl (Normal); Ketone-Dipstick Negative (Negative); Leukocyte Esterase-Dipstick Negative /ul (Negative); Nitrite-Dipstick Negative (Negative); Occult Blood-Urine 25 /ul (Negative); Protein-Dipstick 15 mg/dl (Negative); Urine Bilirubin Dipstick Negative (Negative); Urine Clarity Clear (Clear); Urine Urobilinogen Normal (Normal)
[2024-09-12 20:29] LABS: Red Blood Cells-Urine 0-5 SEEN /hpf (0-5); Squamous Epithelial Cells - UA 0-5 SEEN /hpf (0-5); White Blood Cells 0-5 SEEN /hpf (0-5)
[2024-09-12] MEDS: Pantoprazole Sodium 40 MG in 0.9% Normal Saline (100mL MB+) 100 ML 330 MG IV (21:49)
[2024-09-12] MEDS: Menthol/Lanolin/Calamine/Znox 113 GM Tube 1 APPLIC TOPICAL (21:49)
[2024-09-12] MEDS: Lactulose 20 GM/30 ML UDC 200 GM RC (21:49)
[2024-09-12] MEDS: 0.9% Normal Saline (250mL Bag) 250 ML 15 ML IV (21:50)
[2024-09-12] MEDS: 0.9% Saline Lock 10 ML Syringe IV (21:51)
[2024-09-12] MEDS: Heparin Injection (Vial) 5,000 UNIT/ML VIAL 5000 UNIT SC (21:58)
[2024-09-13] MEDS: Dextrose 10%-Water 250 ML 999 ML IV (00:08)
[2024-09-13 00:19] LABS: Bedside Glucose 76 mg/dL (74-106)
[2024-09-13] MEDS: Lactulose 20 GM/30 ML UDC 200 GM RC (02:54)
[2024-09-13 03:14] VITALS: BP 115/75; PULSE 85; RESP 16; TEMP 36.5; O2SAT 100
[2024-09-13 04:02] VITALS: PULSE 88
[2024-09-13] MEDS: Levothyroxine 50 MCG Tablet PO (05:56)
[2024-09-13 06:24] LABS: Bedside Glucose 76 mg/dL (74-106)
[2024-09-13 06:40] VITALS: O2SAT 98
[2024-09-13 07:03] LABS: Absolute Lymphocyte Count 0.51 X10^3/uL (0.83-4.51); Absolute Neutrophil Count 5.3 X10^3/uL (2.0-7.7); Basophil# 0.07 X10^3/uL; Eosinophil# 0.12 X10^3/uL; Eosinophils% 1.8 % (0-5); Hemoglobin 9.6 g/dL (13.0-16.5); Lymphocyte # 0.51 X10^3/ul (0.83-4.51); Lymphocyte % 7.6 % (19-41); Mean Corp Hgb Conc 33.1 g/dL (32-36); Mean Corpuscular Hgb 31.9 pg (27.0-32.0); Mean Corpuscular Volume 96.3 fL (80-94); Mean Platelet Vol. 9.3 fl (6.2-12.0); Monocyte# 0.63 X10^3/uL; Monocyte% 9.4 % (0-10); NRBC Flagged by Analyzer 0 % (0-5); Neutrophil # 5.31 X10^3/uL (2.7-7.7); Neutrophil % 79.5 % (47-70); POSITIVE DIFFERENTIAL YES; Platelet Count 172 K/mm3 (150-450); RBC Distribution Width CV 18.6 % (11.6-14.6); RBC Distribution Width SD 63.7 fl (35.1-43.9); Red Blood Count 3.01 M/mm3 (4.6-6.2); White Blood Count 6.7 K/mm3 (4.4-11.0)
[2024-09-13 07:28] LABS: Ammonia 30.3 umol/L (16-60)
--- NOTE | 2024-09-13 07:28 | PCM.PN.HOSP ---
Reason for Visit Reason for Visit: Diagnoses Hepatic encephalopathy (09/12/24) Subjective Subjective Feeling well. Admits that he cut back on his lactulose. Objective Data Objective Data Vital Signs: Vital Signs Temp Pulse Resp BP Pulse Ox O2 Del Method 36.5 C L 88 16 115/75 98 Room Air 09/13/24 03:14 09/13/24 04:02 09/13/24 03:14 09/13/24 03:14 09/13/24 06:40 09/13/24 06:40 Oxygen Delivery Method Room Air Weight: 90.1 kg Body Mass Index (BMI) 26.9 Intake & Output: Intake and Output for Last 24 Hours 09/11/24 09/12/24 09/13/24 23:59 23:59 23:59 Intake Total 310 / 310 307.75 / 307.75 Balance 310 / 310 307.75 / 307.75 Lab / Micro Data 09/13/24 06:54 09/13/24 06:54 Labs: Laboratory Results - last 24 hr 09/12/24 16:55: Sodium 133, Potassium 4.6, Chloride 104, Carbon Dioxide 22.2, Anion Gap 7, BUN 24 H, Creatinine 1.10, Estim Creat Clear Calc 61.73, Est GFR (MDRD) Non-Af 69, BUN/Creatinine Ratio 21.5 H, Glucose 95, Calcium 8.3, Total Bilirubin 2.08 H, AST 47 H, ALT 18, Alkaline Phosphatase 170 H, Ammonia 174.0 H, Total Protein 5.8 L, Albumin 2.1 L, Globulin 3.7, Albumin/Globulin Ratio 0.6 L, Ethyl Alcohol < 10.1 09/12/24 17:32: WBC 5.2, RBC 2.41 L, Hgb 8.5 L, Hct 23.3 L, MCV 96.7 H, MCH 35.3 H, MCHC 36.5 H, RDW Std Deviation 62.1 H, RDW Coeff of Vicky 19.8 H, Plt Count 160, MPV 10.0, Immature Gran % (Auto) 1.000 H, Neut % (Auto) 70.9 H, Lymph % (Auto) 12.2 L, [place] % (Auto) 12.8 H, Eos % (Auto) 2.1, Baso % (Auto) 1.0, Absolute Neuts (auto) 3.7, Absolute Lymphs (auto) 0.63 L, Nucleated RBC % 0 09/12/24 17:45: Urine Color Yellow, Urine Clarity Clear, Urine pH 8.0, Ur Specific [place] 1.010, Urine Protein 15 H, Urine Glucose (UA) 250 H, Urine Ketones Negative, Urine Occult Blood 25 H, Urine Nitrite Negative, Urine Bilirubin Negative, Urine Urobilinogen Normal, Ur Leukocyte Esterase Negative, Urine RBC 0-5 SEEN, Urine WBC 0-5 SEEN, Ur Squamous Epith Cells 0-5 SEEN, Urine Bacteria 0 SEEN, Urine Mucus 0 SEEN 09/13/24 00:01: POC Glucose 76 09/13/24 05:53: POC Glucose 76 09/13/24 06:54: WBC 6.7, RBC 3.01 L, Hgb 9.6 L, Hct 29.0 L, MCV 96.3 H, MCH 31.9, MCHC 33.1 D, RDW Std Deviation 63.7 H, RDW Coeff of Vicky 18.6 H, Plt Count 172, MPV 9.3, Immature Gran % (Auto) 0.700, Neut % (Auto) 79.5 H, Lymph % (Auto) 7.6 L, [place] % (Auto) 9.4, Eos % (Auto) 1.8, Baso % (Auto) 1.0, Absolute Neuts (auto) 5.3, Absolute Lymphs (auto) 0.51 L, Nucleated RBC % 0 Radiography Diagnostic Testing: Radiology Impression Brain CT 09/12/24 17:05 IMPRESSION: 1. Small intermediate density left subdural collection is now seen 2. In the presence of mild generalized cerebral atrophy, no significant midline shift is seen. Ventricles appear symmetric and within the normal range. 3. No parenchymal hemorrhage is noted. Reading Location: [facility] Chest X-Ray 09/12/24 17:30 IMPRESSION: Cardiomegaly with mild congestion. Reading Location: [facility] Rhythm Strip Rhythm Strip: Sinus Rhythm Rate: 75 Ectopy: PAC(s) Physical Exam Const alert and no apparent distress HEENT head/scalp atraumatic Assessment & Plan Assessment/Plan (1) Acute hepatic encephalopathy: PLAN: 2/2 to cutting back on his Lactulose. Understands the need to continue lactulose 3 times/day. Avoid potentiating medications. Head CT showed generalized cerebral atrophy. PLAN: Plan Chronic conditions: cirrhosis: DM2: SSI anemia: stable. HTN: continue home meds. VTE prophylaxis: LMWH. Feels safe going home.
[2024-09-13 07:31] LABS: ALB/GLOB Ratio 0.5 RATIO (0.9-2.4); AST(SGOT) 55 U/L (<=37); Alanine Aminotransfer ALT/SGPT 20 U/L (<=46); Albumin, Serum 2.3 g/dL (3.4-4.8); Alkaline Phosphatase 180 U/L (40-129); Anion Gap 9 (5-15); BUN 21 mg/dL (4-19); BUN/Creat Ratio 21.6 RATIO (10-20); Calcium,Total 8.8 mg/dL (7.6-11.0); Carbon Dioxide 19.3 mmol/L (21.0-32.0); Chloride 108 mmol/L (98-108); Creatinine, Serum 0.97 mg/dL (0.70-1.20); EST Glomerular Filtration Rate 81 (>60); Globulin 4.3 g/dL (2.2-4.2); Glucose 90 mg/dL (70-99); Potassium 4.4 mmol/L (3.3-5.1); Protein, Total 6.5 g/dL (5.9-8.4); Sodium Level 137 mmol/L (133-145); Total Bilirubin 3.58 mg/dL (0.00-1.30)
[2024-09-13 08:14] VITALS: BP 139/70; PULSE 85; RESP 18; TEMP 36.6; O2SAT 100
--- NOTE | 2024-09-13 08:22 | NURSING ---
pt states that he has his liver MD appointment on ThursdaySeptember 14 @ 9148 at [facility] in [place].
[2024-09-13] MEDS: Furosemide 40 MG Tablet PO (08:23)
[2024-09-13] MEDS: Carvedilol 6.25 MG Tablet PO ×2 (08:23→16:29)
[2024-09-13] MEDS: Spironolactone 50 MG Tablet 100 MG PO (08:24)
[2024-09-13] MEDS: Finasteride 5 MG Tablet PO (08:25)
[2024-09-13] MEDS: Heparin Injection (Vial) 5,000 UNIT/ML VIAL 5000 UNIT SC (08:26)
[2024-09-13 09:03] VITALS: PULSE 88
[2024-09-13] MEDS: Pantoprazole Sodium 40 MG Tablet PO (11:12)
[2024-09-13 11:45] LABS: Bedside Glucose 109 mg/dL (74-106)
--- NOTE | 2024-09-13 12:01 | CASEMGMT ---
TARA HOLLIS Assessment Face to Face with patient for initial transition planning/care coordination assessment. TARA HOLLIS introduced self and role at [facility], pt voices understanding. Pt is A&Ox4 and is resting comfortably in bed and is calm. Care providers, pharmacy, and demographics verified. Admitting dx: Hepatic Encephalopathy. Pt did not give this TARA HOLLIS a good reason as to why he stopped taking his Lactulose but states that he has a sufficient amount and plans to continue taking this at home after DC. LACE Strata: 3 PCP: [place] Ritu Oscar Specialists: [employer], Ortho, Oncology, and Cardio through the [place] Preferred Pharmacy: [facility] [place]: [place], [facility] AARP MCR ADV Plan Prescription Benefit: Yes LNOK: María (W) Living Arrangements: Pt lives with his in a single story home with a flat entrance. Pt states that he currently has no heat and is requesting assistance with this issue. SW notified and will f/u. ADLs/IADLs: Pt states that he is entirely independent and denies concerns Transportation: Self, . Denies needs DME: Functioning BGM with sufficient supplies. Grab bars. BP Machine. Cane. FWW. HHC[facility]SNF[facility] Pt?s goal: Home Plan: Home with pt once medically ready, continue lactulose as ordered, and SW consult. No further needs identified as the pt states that he feels safe returning home with his once he is medically cleared and denies the need for any HH or OP therapy. Pt denies further questions at this time. MS3 TARA HOLLIS and SW notified. Anthony Baires RN, CM
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
[2024-09-13 14:20] VITALS: BP 104/70; PULSE 70; RESP 16; TEMP 36.6; O2SAT 100
[2024-09-13] MEDS: Lactulose 20 GM/30 ML PHA UDC PO (14:26)
--- NOTE | 2024-09-13 14:44 | DS.PCM_ITS ---
Providers Date of Admission: 09/12/24 Primary Care Physician: [facility] Reason For Visit: HEPATIC ENCEPHALOPATHY Diagnosis Discharge Diagnosis (1) Acute hepatic encephalopathy: Status: Acute Code(s): K76.82 - Hepatic encephalopathy Plan: 2/2 to cutting back on his Lactulose. Understands the need to continue lactulose 3 times/day. Avoid potentiating medications. Head CT showed generalized cerebral atrophy. Plan Chronic conditions: * cirrhosis: * DM2: SSI * anemia: stable. * HTN: continue home meds. VTE prophylaxis: LMWH. Feels safe going home. Medications at Discharge Home Medications empagliflozin 25 mg tablet (Jardiance) 25 mg PO DAILY 05/17/22 furosemide 40 mg tablet 40 mg PO DAILY 05/17/22 gemfibrozil 600 mg tablet 600 mg PO DAILY 05/17/22 multivitamin with iron-mineral 1 tab PO DAILY 05/17/22 spironolactone 100 mg tablet 100 mg PO DAILY 05/17/22 vit C 250 mg-E 90 mg-zinc 40 mg-copper 1 [id number] chew tablet (PreserVision AREDS-2) 1 tab PO DAILY 05/17/22 finasteride 5 mg tablet (Proscar) 5 mg PO DAILY md ordered 10/30/23 levothyroxine 50 mcg tablet (Synthroid) 50 mcg PO DAILY hypothyroidism 10/30/23 pantoprazole 40 mg tablet,delayed release (Protonix) 40 mg PO BID stomach ulcer 10/30/23 torsemide 20 mg tablet [address] order 10/30/23 trazodone 50 mg tablet 50 mg PO QHS sleep 10/30/23 carvedilol 6.25 mg tablet 6.25 mg PO BID 1 month #60 tabs 10/31/23 lactulose 20 gram/30 mL oral solution 20 g (30 mL) PO TID #1,500 mL 10/31/23 oxycodone 5 mg tablet 5 mg PO Q6H PRN PRN pain 09/12/24 Hospital Course Operations None Procedures None Summary of Care Provided Minutes Spent on Discharge: 32 Hospital Course: Patient presents with confusion. Patient was restarted on lactulose and mental status improved. Saw the patient afterwards and he was awake and alert and acknowledged that he had cut back on his lactulose and down to once daily instead of 3 times daily. He acknowledged without me even saying anything that he needs to take it as previously instructed and has no problems continuing lactulose 3 times daily. Patient feels safe going home. Patient improved much faster than initially anticipated on admission. Weight / BMI Weight Weight: 90.1 kg Body Mass Index (BMI) 26.9 ABG / Lab / Microbiology Data 09/13/24 06:54 09/13/24 06:54 Laboratory: Laboratory Results - last 24 hr 09/12/24 16:55: Sodium 133, Potassium 4.6, Chloride 104, Carbon Dioxide 22.2, Anion Gap 7, BUN 24 H, Creatinine 1.10, Estim Creat Clear Calc 61.73, Est GFR (MDRD) Non-Af 69, BUN/Creatinine Ratio 21.5 H, Glucose 95, Calcium 8.3, Total Bilirubin 2.08 H, AST 47 H, ALT 18, Alkaline Phosphatase 170 H, Ammonia 174.0 H, Total Protein 5.8 L, Albumin 2.1 L, Globulin 3.7, Albumin/Globulin Ratio 0.6 L, Ethyl Alcohol < 10.1 09/12/24 17:32: WBC 5.2, RBC 2.41 L, Hgb 8.5 L, Hct 23.3 L, MCV 96.7 H, MCH 35.3 H, MCHC 36.5 H, RDW Std Deviation 62.1 H, RDW Coeff of Vicky 19.8 H, Plt Count 160, MPV 10.0, Immature Gran % (Auto) 1.000 H, Neut % (Auto) 70.9 H, Lymph % (Auto) 12.2 L, [place] % (Auto) 12.8 H, Eos % (Auto) 2.1, Baso % (Auto) 1.0, Absolute Neuts (auto) 3.7, Absolute Lymphs (auto) 0.63 L, Nucleated RBC % 0 09/12/24 17:45: Urine Color Yellow, Urine Clarity Clear, Urine pH 8.0, Ur Specific [place] 1.010, Urine Protein 15 H, Urine Glucose (UA) 250 H, Urine Ketones Negative, Urine Occult Blood 25 H, Urine Nitrite Negative, Urine Bilirubin Negative, Urine Urobilinogen Normal, Ur Leukocyte Esterase Negative, Urine RBC 0-5 SEEN, Urine WBC 0-5 SEEN, Ur Squamous Epith Cells 0-5 SEEN, Urine Bacteria 0 SEEN, Urine Mucus 0 SEEN 09/13/24 00:01: POC Glucose 76 09/13/24 05:53: POC Glucose 76 09/13/24 06:54: WBC 6.7, RBC 3.01 L, Hgb 9.6 L, Hct 29.0 L, MCV 96.3 H, MCH 31.9, MCHC 33.1 D, RDW Std Deviation 63.7 H, RDW Coeff of Vicky 18.6 H, Plt Count 172, MPV 9.3, Immature Gran % (Auto) 0.700, Neut % (Auto) 79.5 H, Lymph % (Auto) 7.6 L, [place] % (Auto) 9.4, Eos % (Auto) 1.8, Baso % (Auto) 1.0, Absolute Neuts (auto) 5.3, Absolute Lymphs (auto) 0.51 L, Nucleated RBC % 0, Sodium 137, Potassium 4.4, Chloride 108, Carbon Dioxide 19.3 L, Anion Gap 9, BUN 21 H, Creatinine 0.97, Estim Creat Clear Calc 70.00, Est GFR (MDRD) Non-Af 81, B UN/Creatinine Ratio 21.6 H, Glucose 90, Calcium 8.8, Total Bilirubin 3.58 H, AST 55 H, ALT 20, Alkaline Phosphatase 180 H, Ammonia 30.3, Total Protein 6.5, A lbumin 2.3 L, Globulin 4.3 H, Albumin/Globulin Ratio 0.5 L 09/13/24 11:11: POC Glucose 109 H Radiography Diagnostic Testing: Radiology Impression Brain CT 09/12/24 17:05 IMPRESSION: 1. Small intermediate density left subdural collection is now seen 2. In the presence of mild generalized cerebral atrophy, no significant midline shift is seen. Ventricles appear symmetric and within the normal range. 3. No parenchymal hemorrhage is noted. Reading Location: [facility] Chest X-Ray 09/12/24 17:30 IMPRESSION: Cardiomegaly with mild congestion. Reading [facility] Instructions Discharge Diet: No restrictions DC O2, CPAP, BIPAP Needs Home O2 Discharge instructions: No Meaningful Use Info Meaningful Use Meaningful Use Diagnoses (Choose all that apply): None applicable Ischemic Stroke Statin Dosing Therapy Reference: STATIN DOSE THERAPY REFERENCE: * Patients > 75 years receive moderate or high dose statin therapy. * Patients 75 years or YOUNGER should receive HIGH intensity statin dose unless contraindicated. You will be required to document reason for non-treatment if statin daily dose does not meet guidelines. HIGH DOSE STATIN THERAPY DAILY Atorvastatin > than or = to 40 mg Rosuvastatin > than or = to 20 mg Amlodipine + Atorvastatin > than or = to 2.5/40 mg Ezetimibe + Simvastatin 10/80 mg Simvastatin 80mg Discharge Plan Admission Admit Date/Time: 09/12/24 18:16 Primary Reason for Your Visit: Hepatic encephalopathy Attending Provider: Ronen Warren Primary Care Provider: [facility],[place] Consulting Providers: Nona Nunez Instructions Additional Instructions / Restrictions: You had confusion due to your ammonia level being elevated. As we discussed about the importance of taking the lactulose is to have diarrhea to help prevent reabsorption of ammonia that could cause her to be confused in the future. The goal is to have 3 loose bowel movements per day. Discharge Orders/Prescriptions Prescriptions: Continued furosemide 40 mg Tablet 40 mg PO DAILY spironolactone 100 mg Tablet 100 mg PO DAILY gemfibrozil 600 mg Tablet 600 mg PO DAILY multivitamin with iron-mineral Tablet 1 tab PO DAILY Jardiance 25 mg Tablet 25 mg PO DAILY PreserVision AREDS-2 250-90-40-1 mg Tablet,Chewable 1 tab PO DAILY Patient Comments: NOT SURE IF PT TAKES levothyroxine [Synthroid] 50 mcg tablet 50 mcg PO DAILY torsemide 20 mg tablet 20 mg PO DAILY trazodone 50 mg tablet 50 mg PO QHS finasteride [Proscar] 5 mg tablet 5 mg PO DAILY pantoprazole [Protonix] 40 mg tablet,delayed release (DR/EC) 40 mg PO BID carvedilol 6.25 mg tablet 6.25 mg PO BID 30 Days Qty: 60 2RF Rx Instructions: must administer with a meal/food lactulose 20 gram/30 mL Solution 20 g PO TID Qty: 1500 0RF Rx Instructions: Titrate the dose to keep a goal of 3 bowel movements per day oxycodone 5 mg tablet 5 mg PO Q6H PRN PRN (Reason: pain) Referrals / [facility] [facility] [Primary [facility] [place] - Disposition Disposition (needs filled in before D/C Order can be placed): Home, Self Care Charges/Coding Visit Charges Inpatient E&M: 51132 Disch Hosp >30min
--- NOTE | 2024-09-13 14:49 | CASEMGMT ---
YULI from [facility] [place]. Provided her with clinical update on pt. She gave her return phone number if needed. [phone] [id number].
--- NOTE | 2024-09-13 15:47 | PHA.DC.MR.R ---
Pharmacy [place] Med Reconciliation Pharmacy Service has performed discharge medication reconciliation for this patient. The patient's discharge medication list was reviewed for discrepancies and discrepancies were resolved. Medications at Discharge Home Medications empagliflozin 25 mg tablet (Jardiance) 25 mg PO DAILY 05/17/22 furosemide 40 mg tablet 40 mg PO DAILY 05/17/22 gemfibrozil 600 mg tablet 600 mg PO DAILY 05/17/22 multivitamin with iron-mineral 1 tab PO DAILY 05/17/22 spironolactone 100 mg tablet 100 mg PO DAILY 05/17/22 vit C 250 mg-E 90 mg-zinc 40 mg-copper 1 [id number] chew tablet (PreserVision AREDS-2) 1 tab PO DAILY 05/17/22 finasteride 5 mg tablet (Proscar) 5 mg PO DAILY md ordered 10/30/23 levothyroxine 50 mcg tablet (Synthroid) 50 mcg PO DAILY hypothyroidism 10/30/23 pantoprazole 40 mg tablet,delayed release (Protonix) 40 mg PO BID stomach ulcer 10/30/23 torsemide 20 mg tablet [address] order 10/30/23 trazodone 50 mg tablet 50 mg PO QHS sleep 10/30/23 carvedilol 6.25 mg tablet 6.25 mg PO BID 1 month #60 tabs 10/31/23 lactulose 20 gram/30 mL oral solution 20 g (30 mL) PO TID #1,500 mL 10/31/23 oxycodone 5 mg tablet 5 mg PO Q6H PRN PRN pain 09/12/24
[2024-09-13 16:50] LABS: Bedside Glucose 80 mg/dL (74-106)
== END 2024-09-13 17:55 | disposition home or self-care (01) | DRG 442 ==
LOC: ED 17:56 → MS3 19:05
PROVIDERS: Admitting Provider Family Medicine; Emergency Provider Emergency Medicine
DX: K76.82 Hepatic encephalopathy (principal); N13.8 Other obstructive and reflux uropathy; E11.22 Type 2 diabetes mellitus with diabetic chronic kidney disease; D53.9 Nutritional anemia, unspecified; E03.9 Hypothyroidism, unspecified; E78.5 Hyperlipidemia, unspecified; K70.30 Alcoholic cirrhosis of liver without ascites; F10.10 Alcohol abuse, uncomplicated; I12.9 Hypertensive chronic kidney disease with stage 1 through stage 4 chronic kidney disease, or unspecified chronic kidney disease; G31.9 Degenerative disease of nervous system, unspecified; K21.9 Gastro-esophageal reflux disease without esophagitis; N18.2 Chronic kidney disease, stage 2 (mild); Z79.84 Long term (current) use of oral hypoglycemic drugs; Z87.891 Personal history of nicotine dependence; N40.1 Benign prostatic hyperplasia with lower urinary tract symptoms; Y90.0 Blood alcohol level of less than 20 mg/100 ml; Z86.718 Personal history of other venous thrombosis and embolism; Z91.148 Patient's other noncompliance with medication regimen for other reason; Z85.05 Personal history of malignant neoplasm of liver
CPT/HCPCS: 36415; 70450; 71045; 80053; 81001; 82077; 82140; 82962; 85025; 93005; 94668; 97161; 97165; 99285; P9612; A4216

== ENCOUNTER 2024-11-18 16:34 | Inpatient (IN) | payer OTHER, SELFPAY ==
[2024-11-18] VITALS (17 sets, daily range): BP systolic 97–140; BP diastolic 49–75; PULSE 73–101; RESP 10–18; TEMP 36–36.8; O2SAT 16–100; BMI 26.3; BMI 25.4
--- NOTE | 2024-11-18 16:50 | RAD_ITS ---
PROCEDURE: CHEST 1 VIEW (PORTABLE) 11/18/2024 REASON FOR EXAM: AMS TECHNIQUE: Frontal view of the chest. COMPARISON: Chest x-ray 09/12/2024. CT chest 05/17/2022. FINDINGS: Lungs/Pleura: Redemonstrated amorphous calcified pleural plaque in the right upper lung zone, seen on prior CT. No airspace consolidation, pneumothorax or pleural effusion. Heart/Mediastinum: Borderline cardiomegaly. Calcification of the aortic arch. Bones/Soft tissues: Mild degenerative changes of the spine and bilateral AC joints. Surgical clips and metallic wire embolic material in the upper right to midabdomen. RAD/Chest 1 View (Portable) IMPRESSION: No acute pulmonary disease. Borderline cardiomegaly. Reading Location: [id number]
--- NOTE | 2024-11-18 16:54 | EX.ED.DYSGE1 ---
HPI History of Present Illness Chief Complaint: Mental Status Change Informant: patient Narrative Narrative: Patient is 79-year-old male with history of liver failure and hypothyroidism as well as alcoholism presenting for altered mental status. Per EMS report patient has been more sleepy for the past few days and getting more confused. He had a fall last night not clear if he hit his head. Today he did get up till past noon was not following any commands. EMS was called his brought to the emergency room. Patient will continue to state his name and shake his head yes or no but does not really answer any questions. He denies any pain. Is not clear if he still taking his lactulose. Discussed with who is not the bedside. She confirms patient is full code. 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 Did have a TIPS procedure about 5 years ago as well. States that his last labs his lactulose was normal and up until today she has been making sure he has been getting it every day. [facility] Medical History Anemia Lumbar stenosis without neurogenic claudication Neck pain Cirrhosis of liver Hypothyroidism Cancer Alcohol abuse Hypertension Acute UTI Pancytopenia Diabetes mellitus MRSA (methicillin resistant staph aureus) culture positive Liver cancer GERD (gastroesophageal reflux disease) GI bleed Cirrhosis DVT (deep venous thrombosis) Home Medications ?Medication ?Instructions ?Recorded ?Last Taken ?Type empagliflozin 25 mg tablet 25 mg PO DAILY 05/17/22 10/28/23 History (Jardiance) furosemide 40 mg tablet 40 mg PO DAILY 05/17/22 10/28/23 History gemfibrozil 600 mg tablet 600 mg PO DAILY 05/17/22 10/28/23 History multivitamin with iron-mineral 1 tab PO DAILY 05/17/22 10/28/23 History spironolactone 100 mg tablet 100 mg PO DAILY 05/17/22 10/28/23 History vit C 250 mg-E 90 mg-zinc 40 1 tab PO DAILY 05/17/22 10/28/23 History mg-copper 1 [id number]-tpmncw chew tablet (PreserVision AREDS-2) finasteride 5 mg tablet (Proscar) 5 mg PO DAILY md ordered 10/30/23 Unknown History levothyroxine 50 mcg tablet 50 mcg PO DAILY hypothyroidism 10/30/23 Unknown History (Synthroid) pantoprazole 40 mg tablet,delayed 40 mg PO BID stomach ulcer 10/30/23 Unknown History release (Protonix) torsemide 20 mg tablet [address] truong 10/30/23 Unknown History trazodone 50 mg tablet 50 mg PO QHS sleep 10/30/23 Unknown History carvedilol 6.25 mg tablet 6.25 mg PO BID 1 month #60 tabs 10/31/23 Unknown Rx lactulose 20 gram/30 mL oral 20 g (30 mL) PO TID #1,500 mL 10/31/23 10/28/23 Rx solution oxycodone 5 mg tablet 5 mg PO Q6H PRN PRN pain 09/12/24 Unknown History Allergy/AdvReac Type Severity Reaction Status Date / Time No Known Allergies Allergy Verified 09/12/24 16:35 Family History Mother Heart disease Father Heart disease Surgical History S/P TIPS (transjugular intrahepatic portosystemic shunt) History of J Carlos fundoplication Social History household members: spouse Smoking Status: Former smoker alcohol intake: former substance use type: does not use ROS ROS ED Review of Systems ROS Unobtainable: due to encephalopathy EXAM Physical Exam Const Vital Signs: 11/18/24 16:36 11/18/24 16:37 11/18/24 17:04 Temperature 98.1 F 98.1 F 98.3 F Temperature Source Temporal Temporal Temporal Pulse Rate 97 98 101 H Respiratory Rate 11 L 16 15 Blood Pressure 97/49 L 112/68 99/64 Blood Pressure Mean 65 82 75 Pulse Ox 99 16 100 Oxygen Delivery Method Room Air Room Air Room Air 11/18/24 17:11 11/18/24 17:15 11/18/24 17:15 Temperature 96.8 F L Temperature Source Core Pulse Rate 93 95 Respiratory Rate 18 12 Blood Pressure 107/58 L 103/67 103/67 Blood Pressure Mean 74 78 78 Pulse Ox 100 Oxygen Delivery Method 11/18/24 17:15 11/18/24 17:30 11/18/24 17:45 Temperature 97.4 F L 97.3 F L Temperature Source Core Core Pulse Rate 92 87 Respiratory Rate 11 L 10 L Blood Pressure 103/67 107/71 100/54 L Blood Pressure Mean 78 81 68 Pulse Ox 99 97 Oxygen Delivery Method 11/18/24 18:00 11/18/24 18:15 11/18/24 18:30 Temperature 97.0 F L 97.0 F L 97.1 F L Temperature Source Core Core Core Pulse Rate 93 80 73 Respiratory Rate 10 L 14 13 Blood Pressure 100/64 114/75 102/53 L Blood Pressure Mean 76 86 68 Pulse Ox 100 100 100 Oxygen Delivery Method 11/18/24 18:45 11/18/24 19:00 Temperature 97.2 F L 97.2 F L Temperature Source Core Core Pulse Rate 78 80 Respiratory Rate 12 12 Blood Pressure 109/49 L 113/71 Blood Pressure Mean 66 82 Pulse Ox 99 97 Oxygen Delivery Method Positive well nourished and well developed General Appearance ED: well developed and NAD HEENT Reports moist mucous membranes Eyes PERRL and EOMs intact bilaterally Eyes Narrative: Mild scleral icterus General Eye ED: Yes scleral icterus Neck supple and no JVD Chest Wall inspection of chest normal and palpation of chest normal Resp normal respiratory effort and clear to auscultation bilaterally Cardio regular rate and regular rhythm Cardio Narrative: Blowing holosystolic murmur present GI normal to inspection, nondistended, normoactive bowel sounds and non-tender GI Narrative: No fluid wave present Extremity normal to inspection Extremity Narrative: Chronic appearing pedal edema with compression stockings in place on the lower extremities. No pitting at the knees Neuro Neuro Narrative: Arousable to strong verbal stimuli and will open his eyes and look at you. Moves all extremities but very weak diffusely. Psych mental status grossly normal Skin Skin Narrative: Slight jaundiced appearance MDM MDM MDM Narrative Medical decision making narrative: Patient via for altered mental status. Has a history of significant liver disease. Vital signs normal in the emergency room. No increased O2 demand. Differential includes intracranial hemorrhage, hepatic encephalopathy, urinary tract infection, symptomatic anemia, thyroid abnormality, pneumonia, decompensated liver failure. CBC shows pancytopenia which is slightly worse than on 09/13/24. BMP largely normal. Liver panel does show elevation of bili Guero and a mild elevation of his AST. Alkaline phosphatase also elevated. Ammonia significantly elevated 264. This likely the cause of his altered mental status. TSH is normal. Urinalysis is concerning for urinary tract infection with 3+ bacteria 100 leukocyte esterase with 5-10 white blood cells (as well as obtain via straight catheterization). Alcohol level is negative. Blood glucose is 84 so low suspicion for hypoglycemia as a cause of his mental status change. Patient started on IV Rocephin and urine culture sent. Will be admitted for hepatic encephalopathy with associated urinary tract infection. Patient case is discussed with hospitalist, Dr. Negron. Lab Data Attestation: I reviewed the patient's lab results. Labs: Laboratory Results - last 24 hr 11/18/24 11/18/24 11/18/24 16:41 16:45 17:09 WBC 3.6 L RBC 2.52 L Hgb 8.9 L Hct 24.1 L MCV 95.6 H MCH 35.3 H MCHC 36.9 H RDW Std Deviation 65.0 H RDW Coeff of Vicky 21.2 H Plt Count 120 L MPV 9.7 Immature Gran % (Auto) 0.600 Neut % (Auto) 67.9 Lymph % (Auto) 14.1 L [place] % (Auto) 13.8 H Eos % (Auto) 2.8 Baso % (Auto) 0.8 Absolute Neuts (auto) 2.4 Absolute Lymphs (auto) 0.50 L Nucleated RBC % 0 Differential Comment SCANNED Anisocytosis 1+ PT 16.6 H INR 1.3 APTT 34.7 Sodium 135 Potassium 4.4 Chloride 102 Carbon Dioxide 24.1 Anion Gap 9 BUN 27 H Creatinine 1.17 Estim Creat Clear Calc 58.03 Est GFR (MDRD) Non-Af 64 BUN/Creatinine Ratio 23.4 H Glucose 93 Calcium 8.4 Total Bilirubin 2.70 H Direct Bilirubin 1.59 H AST 49 H ALT 21 Alkaline Phosphatase 196 H Ammonia 264.0 H Total Protein 6.2 Albumin 2.3 L Globulin 3.9 Lipase 42 TSH 2.880 Urine Color Yellow Urine Clarity Sl. Cloudy Urine pH 7.0 Ur Specific [place] 1.010 Urine Protein 15 H Urine Glucose (UA) Normal Urine Ketones Negative Urine Occult Blood 10 H Urine Nitrite Negative Urine Bilirubin Negative Urine Urobilinogen Normal Ur Leukocyte Esterase 100 H Urine RBC 0-5 SEEN Urine WBC 5-10 SEEN Ur Squamous Epith Cells 5-10 SEEN Urine Bacteria 3+ Urine Mucus 0 SEEN Urine Opiates Screen NEGATIVE U Buprenorphine Qual NEGATIVE Ur Oxycodone Screen NEGATIVE Urine Methadone Screen NEGATIVE Urine Fentanyl Screen NEGATIVE Ur Barbiturates Screen NEGATIVE Ur Phencyclidine Scrn NEGATIVE Ur Amphetamines Screen NEGATIVE U Benzodiazepines Scrn NEGATIVE Urine Cocaine Screen NEGATIVE U Cannabinoids Screen NEGATIVE Ethyl Alcohol < 10.1 POC Glucose 84 ABG Data ABG results: ABG 11/18/24 16:55 Specimen Type PEGGY Sample Site Not entered VBG pH 7.48 H VBG pO2 58 H VBG HCO3 30 H VBG Total CO2 31 VBG O2 Sat (Calc) 91 H VBG Base Excess 6 H POC Mix VBG pCO2 Pt Tmp 39.8 L O2 Delivery Device Not entered Radiography Chest X-Ray - ED: 1 View, Read by ED Physician, Read by Radiologist and No Acute Disease Diagnostic Testing: Clinical Impression(s) from Imaging Studies Chest X-Ray 11/18/24 16:50 IMPRESSION: No acute pulmonary disease. Borderline cardiomegaly. Reading Location: [id number] Brain CT 11/18/24 17:22 IMPRESSION: No acute abnormality Reading [facility] Rhythm Strip Rhythm Strip: Sinus Rhythm Rate: 95 Ectopy: None EKG Initial EKG: Attestation: I personally reviewed and interpreted this EKG as follows: Interpretation: Sinus Rhythm Comments: Normal sinus rhythm at a rate of 95 bpm Normal axis Normal intervals Normal ST segments Management Discussion w/another healthcare provider: Hospitalist Discharge Plan Triage Chief Complaint: Mental Status Change ED Provider: Naz Jenkins Dx/Rx/DC Orders Clinical Impression: Acute hepatic encephalopathy, Urinary tract infection, Pancytopenia Prescriptions: No Action furosemide 40 mg Tablet 40 mg PO DAILY spironolactone 100 mg Tablet 100 mg PO DAILY gemfibrozil 600 mg Tablet 600 mg PO DAILY multivitamin with iron-mineral Tablet 1 tab PO DAILY Jardiance 25 mg Tablet 25 mg PO DAILY PreserVision AREDS-2 250-90-40-1 mg Tablet,Chewable 1 tab PO DAILY Patient Comments: NOT SURE IF PT TAKES levothyroxine [Synthroid] 50 mcg tablet 50 mcg PO DAILY torsemide 20 mg tablet 20 mg PO DAILY trazodone 50 mg tablet 50 mg PO QHS finasteride [Proscar] 5 mg tablet 5 mg PO DAILY pantoprazole [Protonix] 40 mg tablet,delayed release (DR/EC) 40 mg PO BID carvedilol 6.25 mg tablet 6.25 mg PO BID 30 Days Qty: 60 2RF Rx Instructions: must administer with a meal/food lactulose 20 gram/30 mL Solution 20 g PO TID Qty: 1500 0RF Rx Instructions: Titrate the dose to keep a goal of 3 bowel movements per day oxycodone 5 mg tablet 5 mg PO Q6H PRN PRN (Reason: pain) [facility] [Primary [facility] Provider] - Print Language: Armenian Disposition Disposition: Acute Care Hospital [facility]
[2024-11-18 16:58] LABS: SITE Not entered; VBG BASE EXCESS 6 mmol/L (-1.0-3.5); VBG PO2 58 mmHg (25-40); VBG SO2 91 % (50-70); VBG TCO2 31 mmol/L (23-33)
[2024-11-18 17:16] LABS: Hematocrit 24.1 % (40-54); Hemoglobin 8.9 g/dL (13.0-16.5); Immature Granulocytes Count 0.020 X10^3/uL (0.0-0.0); Mean Corp Hgb Conc 36.9 g/dL (32-36); Mean Corpuscular Volume 95.6 fL (80-94); Mean Platelet Vol. 9.7 fl (6.2-12.0); NRBC Flagged by Analyzer 0 % (0-5); POSITIVE DIFFERENTIAL YES; POSITIVE MORPHOLOGY YES; Platelet Count 120 K/mm3 (150-450); RBC Distribution Width CV 21.2 % (11.6-14.6); RBC Distribution Width SD 65.0 fl (35.1-43.9); Red Blood Count 2.52 M/mm3 (4.6-6.2); White Blood Count 3.6 K/mm3 (4.4-11.0)
[2024-11-18 17:17] LABS: Differential Indicated SCAN CRITERIA MET
[2024-11-18 17:19] LABS: Mucous, Urine 0 SEEN /hpf (<or=2+)
[2024-11-18 17:22] LABS: Color, Urine Yellow (Yellow); Glucose, Dipstick Normal (Normal); Ketone-Dipstick Negative (Negative); Leukocyte Esterase-Dipstick 100 /ul (Negative); Nitrite-Dipstick Negative (Negative); Occult Blood-Urine 10 /ul (Negative); Protein-Dipstick 15 mg/dl (Negative); Specific Gravity, Urine 1.010 (1.002-1.030); Urine Bilirubin Dipstick Negative (Negative)
--- NOTE | 2024-11-18 17:22 | CT_ITS ---
PROCEDURE: BRAIN/HEAD WITHOUT CONTRAST 11/18/2024 REASON FOR EXAM: AMS TECHNIQUE: BRAIN/HEAD WITHOUT CONTRAST Coronal and Sagittal reconstruction series were provided. One or more dose reduction techniques were used (e.g., Automated exposure control, adjustment of the mA and/or kV according to patient size, use of iterative reconstruction technique. RADIATION DOSE SUMMARY: CTDlvol: 44.9 mGy DLP: 829.85 mGycm COMPARISON: 09/12/2024 FINDINGS: Normal brainstem and cerebellum. No intracranial mass. Mild atrophy. No intracranial hemorrhage. Normal ventricular caliber. Bony calvarium intact. Sinuses are clear. CT/Brain/Head without Contrast IMPRESSION: No acute abnormality Reading Location: [id number]
[2024-11-18 17:30] LABS: Prothrombin Time (Protime)PT. 16.6 SECONDS (11.7-14.9)
[2024-11-18 17:31] LABS: Partial Thromboplast Time 34.7 Seconds (24.1-36.2)
[2024-11-18 17:33] LABS: Red Blood Cells-Urine 0-5 SEEN /hpf (0-5); Squamous Epithelial Cells - UA 5-10 SEEN /hpf (0-5)
[2024-11-18 17:50] LABS: Anisocytosis 1+; Differential Comment SCANNED
[2024-11-18 18:16] LABS: Barbiturate Urine NEGATIVE (< 200 ng/mL); Benzodiazepine Urine NEGATIVE (< 200 ng/mL); PCP Urine NEGATIVE (< 25 ng/mL); THC Urine NEGATIVE (< 50 ng/mL)
[2024-11-18 18:17] LABS: Alcohol, Blood (Medical)-Serum < 10.1 mg/dL (<=10.0); Ammonia 264.0 umol/L (16-60)
[2024-11-18 18:24] LABS: AST(SGOT) 49 U/L (<=37); Alanine Aminotransfer ALT/SGPT 21 U/L (<=46); Albumin, Serum 2.3 g/dL (3.4-4.8); Alkaline Phosphatase 196 U/L (40-129); Anion Gap 9 (5-15); BUN 27 mg/dL (4-19); BUN/Creat Ratio 23.4 RATIO (10-20); Bilirubin, Direct 1.59 mg/dL (0.00-0.30); Calcium,Total 8.4 mg/dL (7.6-11.0); Carbon Dioxide 24.1 mmol/L (21.0-32.0); Chloride 102 mmol/L (98-108); Estimated Creatinine Clearance 58.03 ml/min (50-250); Globulin 3.9 g/dL (2.2-4.2); Glucose 93 mg/dL (70-99); Lipase 42 U/L (13-75); Potassium 4.4 mmol/L (3.3-5.1)
--- NOTE | 2024-11-18 19:29 | PCM.HP.STD ---
[facility] - General General Date of Admission: 11/18/24 Date of Service: 11/18/24 Chief Complaint: AMS. HPI Narrative BRYSON FLORES, is a 79 with a past medical history of essential hypertension; on carvedilol, torsemide, spironolactone and furosemide, hypertriglyceridemia; on gemfibrozil, hypothyroidism; on levothyroxine, overweight; with BMI of 26.3 this admission, former tobacco abuse, DM-2; of unknown control on empagliflozin, history of DVT; currently not on anticoagulation, depression; on trazodone, BPH; on finasteride, GERD with PUD; s/p J Carlos fundoplication on pantoprazole twice daily, OA; on oxycodone every 6 hours as needed, history of liver cancer, remote history of EtOH abuse (quit 5 years ago); with subsequent cirrhosis s/p TIPS procedure on lactulose TID and followed by the [facility] who presents to [facility] ER after his noted altered mental status. Mr. Flores is not a reliable historian at this time as information was gathered from chart, medical staff at computer. According to the records his reported to EMS that he has been becoming more somnolent and confused over the past 2 to 3 days. She also admits that he fell last night and was not sure if he hit his head. The day he did not get up until past noon and was not following commands with worsening lethargy and apparently unable to take his medications so she finally activated EMS to bring him in for further evaluation and treatment. For his part, the patient denies pain but is obviously confused and is only able to state his name and shake his head yes or no but does not verbally communicate beyond this point. His states his symptoms are similar to his previous bouts of hepatic encephalopathy and she confirms the patient is still a Full Code. In the ER he was noted to have Hyperammonemia; with ammonia level of 264 ?mol/L and Hyperbilirubinemia; with total bilirubin of 2.7 mg/dL and direct bilirubin of 1.59 mg/dL all present on admission with corresponding clinical evidence of Hepatic Encephalopathy complicated by UA positive for Acute Cystitis; without hematuria compounded by Leukopenia of 3.6K present on admission with a negative UDS, undetectable NESS and normal blood glucose of 84 mg/dL. He was then admitted to the PCU for ongoing care for his stay that is expected to extend beyond 2 midnights. [facility] Medical History Cirrhosis of liver Liver cancer Anemia Lumbar stenosis without neurogenic claudication Neck pain Hypothyroidism Cancer Alcohol abuse Hypertension Acute UTI Pancytopenia Diabetes mellitus MRSA (methicillin resistant staph aureus) culture positive GERD (gastroesophageal reflux disease) GI bleed Cirrhosis DVT (deep venous thrombosis) Home Medications ?Medication ?Instructions ?Recorded ?Last Taken ?Type empagliflozin 25 mg tablet 25 mg PO DAILY dm 05/17/22 10/28/23 History (Jardiance) gemfibrozil 600 mg tablet 600 mg PO DAILY unk 05/17/22 10/28/23 History finasteride 5 mg tablet (Proscar) 5 mg PO DAILY md ordered 10/30/23 Unknown History levothyroxine 50 mcg tablet 50 mcg PO DAILY hypothyroidism 10/30/23 Unknown History (Synthroid) pantoprazole 40 mg tablet,delayed 40 mg PO BID stomach ulcer 10/30/23 Unknown History release (Protonix) torsemide 20 mg tablet [address] order 10/30/23 Unknown History trazodone 50 mg tablet 75 mg PO QHS sleep 10/30/23 Unknown History carvedilol 3.125 mg tablet 3.125 mg PO BID htn 11/18/24 Unknown History cholecalciferol (vitamin D3) 25 25 mcg PO DAILY suppl 11/18/24 Unknown History mcg (1,000 unit) capsule cyclobenzaprine 10 mg tablet 10 mg PO Q8H muscle spasm 11/18/24 Unknown History gabapentin 800 mg tablet 800 mg PO QHS sleep 11/18/24 Unknown History magnesium oxide 420 mg tablet 420 mg PO BID suppl 11/18/24 Unknown History melatonin 3 mg capsule 12 mg PO QHS sleep 11/18/24 Unknown History rifaximin 550 mg tablet 550 mg PO BID meds 11/18/24 Unknown History spironolactone 25 mg tablet 12.5 mg PO DAILY fluid 11/18/24 Unknown History tramadol 50 mg tablet 50 mg PO DAILY PRN pain 11/18/24 Unknown History Allergy/AdvReac Type Severity Reaction Status Date / Time No Known Allergies Allergy Verified 09/12/24 16:35 Family History Mother Heart disease Father Heart disease Surgical History S/P TIPS (transjugular intrahepatic portosystemic shunt) History of J Carlos fundoplication Social History household members: spouse Smoking Status: Former smoker alcohol intake: former substance use type: does not use ROS ROS Narrative Full review of systems was not possible due to patient's hepatic encephalopathy. Vital Signs Vital Signs Vital Signs: 11/18/24 16:36 11/18/24 16:37 11/18/24 17:04 Temperature 98.1 F 98.1 F 98.3 F Temperature Source Temporal Temporal Temporal Pulse Rate 97 98 101 H Respiratory Rate 11 L 16 15 Blood Pressure 97/49 L 112/68 99/64 Blood Pressure Mean 65 82 75 Pulse Ox 99 16 100 Oxygen Delivery Method Room Air Room Air Room Air 11/18/24 17:11 11/18/24 17:15 11/18/24 17:15 Temperature 96.8 F L Temperature Source Core Pulse Rate 93 95 Respiratory Rate 18 12 Blood Pressure 107/58 L 103/67 103/67 Blood Pressure Mean 74 78 78 Pulse Ox 100 Oxygen Delivery Method 11/18/24 17:15 11/18/24 17:30 11/18/24 17:45 Temperature 97.4 F L 97.3 F L Temperature Source Core Core Pulse Rate 92 87 Respiratory Rate 11 L 10 L Blood Pressure 103/67 107/71 100/54 L Blood Pressure Mean 78 81 68 Pulse Ox 99 97 Oxygen Delivery Method 11/18/24 18:00 11/18/24 18:15 11/18/24 18:30 Temperature 97.0 F L 97.0 F L 97.1 F L Temperature Source Core Core Core Pulse Rate 93 80 73 Respiratory Rate 10 L 14 13 Blood Pressure 100/64 114/75 102/53 L Blood Pressure Mean 76 86 68 Pulse Ox 100 100 100 Oxygen Delivery Method 11/18/24 18:45 11/18/24 19:00 Temperature 97.2 F L 97.2 F L Temperature Source Core Core Pulse Rate 78 80 Respiratory Rate 12 12 Blood Pressure 109/49 L 113/71 Blood Pressure Mean 66 82 Pulse Ox 99 97 Oxygen Delivery Method Weight Weight: 194 lb 3.636 oz Body Mass Index (BMI) 26.3 Physical Exam Const average body habitus Constitutional Narrative: Patient is lethargic but arousable with chronically ill-appearing. Orientation / Consciousness: lethargic HEENT normocephalic and head/scalp atraumatic HEENT Narrative: Patient's mucous membranes are dry with foul breath consistent with fetor hepaticus. Eyes PERRL and EOMs intact bilaterally Eyes Narrative: Sclerae icteric. Neck no lymphadenopathy and supple Resp normal respiratory effort, no retractions, no use of accessory muscles and clear to auscultation bilaterally Cardio regular rate and regular rhythm GI normal to inspection, nondistended, normoactive bowel sounds, soft to palpation, non-tender and non-distended GI Narrative: No fluid wave noted. Extremity Extremity Narrative: Patient has compression stockings in place. Skin Skin Narrative: Patient is slightly jaundiced. Neuro Neuro Narrative: Patient is lethargic but arousable. Psych Psych Narrative: Patient is lethargic but arousable. Results Medical Records Data Attestation: I reviewed the patient's medical records Lab / Micro Data Attestation: I reviewed the patient's lab results. 11/18/24 16:45 11/18/24 16:45 Labs: Laboratory Results - last 24 hr 11/18/24 16:41: POC Glucose 84 11/18/24 16:45: WBC 3.6 L, RBC 2.52 L, Hgb 8.9 L, Hct 24.1 L, MCV 95.6 H, MCH 35.3 H, MCHC 36.9 H, RDW Std Deviation 65.0 H, RDW Coeff of Vicky 21.2 H, Plt Count 120 L, MPV 9.7, Immature Gran % (Auto) 0.600, Neut % (Auto) 67.9, Lymph % (Auto) 14.1 L, [place] % (Auto) 13.8 H, Eos % (Auto) 2.8, Baso % (Auto) 0.8, Absolute Neuts (auto) 2.4, Absolute Lymphs (auto) 0.50 L, Nucleated RBC % 0, Differential Comment SCANNED, Anisocytosis 1+, PT 16.6 H, INR 1.3, APTT 34.7, Sodium 135, Potassium 4.4, Chloride 102, Carbon Dioxide 24.1, Anion Gap 9, BUN 27 H, Creatinine 1.17, Estim Creat Clear Calc 58.03, Est GFR (MDRD) Non-Af 64, BUN/Creatinine Ratio 23.4 H, Glucose 93, Calcium 8.4, Total Bilirubin 2.70 H, Direct Bilirubin 1.59 H, AST 49 H, ALT 21, Alkaline Phosphatase 196 H, Ammonia 264.0 H, Total Protein 6.2, Albumin 2.3 L, Globulin 3.9, Lipase 42, TSH 2.880, Ethyl Alcohol < 10.1 11/18/24 17:09: Urine Color Yellow, Urine Clarity Sl. Cloudy, Urine pH 7.0, Ur Specific [place] 1.010, Urine Protein 15 H, Urine Glucose (UA) Normal, Urine Ketones Negative, Urine Occult Blood 10 H, Urine Nitrite Negative, Urine Bilirubin Negative, Urine Urobilinogen Normal, Ur Leukocyte Esterase 100 H, Urine RBC 0-5 SEEN, Urine WBC 5-10 SEEN, Ur Squamous Epith Cells 5-10 SEEN, Urine Bacteria 3+, Urine Mucus 0 SEEN, Urine Opiates Screen NEGATIVE, U Buprenorphine Qual NEGATIVE, Ur Oxycodone Screen NEGATIVE, Urine Methadone Screen NEGATIVE, Urine Fentanyl Screen NEGATIVE, Ur Barbiturates Screen NEGATIVE, Ur Phencyclidine Scrn NEGATIVE, Ur Amphetamines Screen NEGATIVE, U Benzodiazepines Scrn NEGATIVE, Urine Cocaine Screen NEGATIVE, U Cannabinoids Screen NEGATIVE ABG Data ABG results: ABG 11/18/24 16:55 Specimen Type PEGGY Sample Site Not entered VBG pH 7.48 H VBG pO2 58 H VBG HCO3 30 H VBG Total CO2 31 VBG O2 Sat (Calc) 91 H VBG Base Excess 6 H POC Mix VBG pCO2 Pt Tmp 39.8 L O2 Delivery Device Not entered Imaging Radiology Impression Chest X-Ray 11/18/24 16:50 IMPRESSION: No acute pulmonary disease. Borderline cardiomegaly. Reading Location: [id number] Brain CT 11/18/24 17:22 IMPRESSION: No acute abnormality Reading [facility] Assessment & Plan Assessment/Plan (1) Acute hepatic encephalopathy: (2) Urinary tract infection: QUALIFIERS: Hematuria presence: without hematuria Urinary tract infection type: acute cystitis Qualified Code(s): N30.00 - Acute cystitis without hematuria (3) Hyperbilirubinemia: (4) Pancytopenia: (5) Cirrhosis of liver: QUALIFIERS: Ascites presence: with ascites Hepatic cirrhosis type: alcoholic cirrhosis Qualified Code(s): K70.31 - Alcoholic cirrhosis of liver with ascites (6) Alcohol abuse: (7) Liver cancer: QUALIFIERS: Liver malignancy type: unspecified primary liver malignancy Qualified Code(s): C22.8 - Malignant neoplasm of liver, primary, unspecified as to type (8) Overweight (BMI 25.0-29.9): PLAN: Plan 1. Hepatic Encephalopathy; with Hyperammonemia; with ammonia level of 264 ?mol/L and Hyperbilirubinemia; with total bilirubin of 2.7 mg/dL and direct bilirubin of 1.59 mg/dL all present on admission - Admit to PCU. Continue lactulose HI since he cannot tolerate oral intake at this time. Give IV ondansetron as needed nausea vomiting. Give IV prochlorperazine for breakthrough nausea. Start pantoprazole 40 mg IV daily. Finally, we will consult gastroenterology see this patient on rounds in the a.m. for further recommendations with help appreciated in advance. 2. UA positive for Acute Cystitis; without hematuria compounded by Pancytopenia of with WBC 3.6K, Hgb 8.9 g/dL and Plt 120K all present on admission complicating #1 - Continue IV ceftriaxone begun in ER and await culture and sensitivity data. 3. Generalized Weakness with Ambulatory Dysfunction and Frequent Falls attributable to #1 & #2 - PT/OT case management consult and treat on rounds in a.m. further recommendations with appreciated advance. 4. Remote history of EtOH abuse (quit 5 years ago); with subsequent cirrhosis s/p TIPS procedure on lactulose TID plus history of liver cancer followed by the [facility] compounding #1 - #3 - Noted. 5. Overweight; with BMI of 26.3 this admission - Weight loss to be recommended. 6. Essential hypertension; on carvedilol, torsemide, spironolactone and furosemide - Hold oral antihypertensive regimen until patient can safely tolerate oral intake. 7. Hypertriglyceridemia; on gemfibrozil - Hold this agent for now. Check lipid profile. 8. Hypothyroidism; on levothyroxine - Restart levothyroxine when patient can tolerate oral intake and check TSH. 9. Former tobacco abuse - Noted. 10. DM-2; of unknown control on empagliflozin - Keep n.p.o. for now. Check fingerstick blood sugars every 6 hours plus give lowest-intensity SSI. Check hemoglobin A1c to objectively evaluate quality of diabetic control. 11. History of DVT; currently not on anticoagulation - Noted. Check D-dimer. 12. Depression; on trazodone - Hold this agent until patient can tolerate oral intake and his mental status improves. 13. BPH; on finasteride - Hold for now. 14. GERD with PUD; s/p J Carlos fundoplication on pantoprazole twice daily - Maintain PPI IV. 15. OA; on oxycodone every 6 hours as needed - Noted. We will minimize [employer]-active medications in an effort to allow sensorium to clear. 16. DVT/GI prophylaxis - Enoxaparin 40 mg sq daily plus SCD's. Pantoprazole IV daily. Total time: Approximately (but not less than) 75 minutes. Charges/Coding Visit Charges Inpatient E&M: 80140 Init Hosp L3
--- OUTSIDE RECORDS SUMMARY | 2024-11-18 19:50 | XMS RPT_ITS | CCD ---
Author Organization [facility] Care Team Providers Care Extract Puller Name Role Phone Unavailable Primary Care Provider UnavailDr. Mateo Ochoa Emergency Provider [phone] [place], [place] Primary Care Provider UnavailDr. Sia Son Admit Provider Dr. Sia Hardy Attending Provider Dr. Sia Hardy Other Provider [phone] Brian Hernandez Other Provider Unavailable Dr. Brian Hernandez Attending Provider Unavailable Dr. Ronen Warren Attending Provider Dr. Ronen Warren Other Provider [facility] Primary Care Provider William KO, Connie Unavailable [facility] Primary Care Provider Abi Lambert MD Primary Care Provider YOLANDA MESSINA Attending Unavailable YOLANDA MESSINA Referring Unavailable ABI LAMBERT Primary Care Unavailable YOLANDA MESSINA Admitting Unavailable [place] Referring Provider Unavailable Maryam Kelly Attending Provider Alessandra KO, Dr. Lynn Attending Provider Dr. Naren Mcdowell MD Emergency Provider Mayra KO, Dr. Nona Gutierrez Attending Provider [place] Primary Care Provider UnavailDr. Nona Kiran MD Admit Provider Dr. Nona Nunez MD Other Provider Dr. Ronen Warren DO Attending Provider Dr. Ronen Warren DO Other Provider [facility] Primary Care Provider [phone] [facility], [place] Primary Care Unavailable [facility] Clark [facility] [place] [facility] Nona Nunez Attending Unavailable Nona Nunez Consulting Unavailable [facility] [place] Primary Care Unavailable Ronen Warren Attending Unavailable Nona Nunez Admitting Unavailable Ronen Warren Consulting Unavailable Almas Smith Attending Unavailable [facility] [place] Primary [facility] Unavailable Иван Lynn Attending Unavailable [facility] [place] Primary Care Unavailable Wagner Cavazos Consulting Unavailable
[2024-11-18 23:08] LABS: FOLATES,SERUM (FOLIC ACID) 8.37 ng/mL (4.60-34.80)
[2024-11-18] MEDS: Pantoprazole Sodium 40 MG in 0.9% Normal Saline (100mL MB+) 100 ML 330 MG IV (23:13)
[2024-11-18 23:37] LABS: Ferritin 73 ng/mL (37-417); Vitamin B12 2218 pg/mL (180-914)
[2024-11-19 00:08] LABS: Iron 88 ug/dL (65-175); Iron Binding Capacity,Unsat 105 ug/dL (228-428); Magnesium 2.2 mg/dL (1.5-2.2)
[2024-11-19 00:35] LABS: Iron Binding Capacity,Total 193 ug/dL (250-450)
[2024-11-19 02:20] VITALS: BP 122/69; PULSE 78; RESP 16; TEMP 36.4; O2SAT 98
[2024-11-19 06:00] VITALS: BMI 24.8
[2024-11-19 06:30] VITALS: BP 127/84; PULSE 101; RESP 18; TEMP 36.7; O2SAT 99
[2024-11-19 07:32] LABS: Hematocrit 24.6 % (40-54); Hemoglobin 9.0 g/dL (13.0-16.5); Immature Granulocytes Count 0.020 X10^3/uL (0.0-0.0); Mean Corp Hgb Conc 36.6 g/dL (32-36); Mean Corpuscular Volume 97.2 fL (80-94); Mean Platelet Vol. 9.4 fl (6.2-12.0); NRBC Flagged by Analyzer 0 % (0-5); POSITIVE DIFFERENTIAL YES; POSITIVE MORPHOLOGY YES; Platelet Count 118 K/mm3 (150-450); RBC Distribution Width CV 20.7 % (11.6-14.6); RBC Distribution Width SD 64.9 fl (35.1-43.9); Red Blood Count 2.53 M/mm3 (4.6-6.2); White Blood Count 3.6 K/mm3 (4.4-11.0)
--- NOTE | 2024-11-19 07:35 | PN.HOSP_ITS ---
Reason for Visit Chief Complaint: AMS. Subjective Subjective Patient significantly improved since initial ED arrival alert, talkative and eager for diet which was initiated. Discussed with patient and and they report that he continued to take his lactulose however recently they do report that the information on the bottle stated to take only once daily and they do report following up at the [place] so it is unclear if the regimen was changed since his most recent discharge with hepatic encephalopathy. Noted during his previous discharges he had been on lactulose 3 times daily and noted to patient and spouse that this would be continued at his discharge and was likely a big reason why he unfortunately had a recurrent event as he was not taking the lactulose as frequently as needed. Patient denies fevers, chills, nausea, emesis, abdominal pain, chest pain or dyspnea. Objective Data Objective Data Vital Signs: Vital Signs Temp Pulse Resp BP Pulse Ox O2 Del Method 98.0 F 101 H 18 127/84 H 99 Room Air 11/19/24 06:30 11/19/24 06:30 11/19/24 06:30 11/19/24 06:30 11/19/24 06:30 11/19/24 06:30 Oxygen Delivery Method Room Air Weight: 183 lb 6.793 oz Body Mass Index (BMI) 24.8 Intake & Output: Intake and Output for Last 24 Hours 11/17/24 11/18/24 11/19/24 23:59 23:59 23:59 Intake Total 150 / 150 0 / 0 Output Total 900 / 900 Balance 150 / 150 -900 / -900 Lab / Micro Data 11/19/24 05:34 11/19/24 05:34 Labs: Laboratory Results - last 24 hr 11/18/24 16:41: POC Glucose 84 11/18/24 16:45: WBC 3.6 L, RBC 2.52 L, Hgb 8.9 L, Hct 24.1 L, MCV 95.6 H, MCH 35.3 H, MCHC 36.9 H, RDW Std Deviation 65.0 H, RDW Coeff of Vicky 21.2 H, Plt Count 120 L, MPV 9.7, Immature Gran % (Auto) 0.600, Neut % (Auto) 67.9, Lymph % (Auto) 14.1 L, [place] % (Auto) 13.8 H, Eos % (Auto) 2.8, Baso % (Auto) 0.8, Absolute Neuts (auto) 2.4, Absolute Lymphs (auto) 0.50 L, Nucleated RBC % 0, Differential Comment SCANNED, Anisocytosis 1+, PT 16.6 H, INR 1.3, APTT 34.7, Sodium 135, Potassium 4.4, Chloride 102, Carbon Dioxide 24.1, Anion Gap 9, BUN 27 H, Creatinine 1.17, Estim Creat Clear Calc 58.03, Est GFR (MDRD) Non-Af 64, B UN/Creatinine Ratio 23.4 H, Glucose 93, Calcium 8.4, Total Bilirubin 2.70 H, D irect Bilirubin 1.59 H, AST 49 H, ALT 21, Alkaline Phosphatase 196 H, Ammonia 264.0 H, Total Protein 6.2, Albumin 2.3 L, Globulin 3.9, Lipase 42, TSH 2.880, Ethyl Alcohol < 10.1 11/18/24 17:09: Urine Color Yellow, Urine Clarity Sl. Cloudy, Urine pH 7.0, Ur Specific [place] 1.010, Urine Protein 15 H, Urine Glucose (UA) Normal, Urine Ketones Negative, Urine Occult Blood 10 H, Urine Nitrite Negative, Urine Bilirubin Negative, Urine Urobilinogen Normal, Ur Leukocyte Esterase 100 H, Urine RBC 0-5 SEEN, Urine WBC 5-10 SEEN, Ur Squamous Epith Cells 5-10 SEEN, Urine Bacteria 3+, Urine Mucus 0 SEEN, Urine Opiates Screen NEGATIVE, U Buprenorphine Qual NEGATIVE, Ur Oxycodone Screen NEGATIVE, Urine Methadone Screen NEGATIVE, Urine Fentanyl Screen NEGATIVE, Ur Barbiturates Screen NEGATIVE, Ur Phencyclidine Scrn NEGATIVE, Ur Amphetamines Screen NEGATIVE, U Benzodiazepines Scrn NEGATIVE, Urine Cocaine Screen NEGATIVE, U Cannabinoids Screen NEGATIVE 11/18/24 21:45: Hemoglobin A1c 4.3, Magnesium 2.2, Iron 88, TIBC 193 L, Iron Saturation 45.6, Unsaturated IBC 105 L, Ferritin 73, Vitamin B12 2218 H, Serum Folate 8.37, TSH 2.450 ABG Data ABG results: ABG 11/18/24 16:55 Specimen Type PEGGY Sample Site Not entered VBG pH 7.48 H VBG pO2 58 H VBG HCO3 30 H VBG Total CO2 31 VBG O2 Sat (Calc) 91 H VBG Base Excess 6 H POC Mix VBG pCO2 Pt Tmp 39.8 L O2 Delivery Device Not entered Radiography Diagnostic Testing: Radiology Impression Chest X-Ray 11/18/24 16:50 IMPRESSION: No acute pulmonary disease. Borderline cardiomegaly. Reading Location: [id number] Brain CT 11/18/24 17:22 IMPRESSION: No acute abnormality Reading Location[facility] Rhythm Strip Rhythm Strip: Sinus Rhythm Rate: 95 Ectopy: None Physical Exam Narrative Physical Examination: General: Awake, alert, oriented to self, place, recent events, reins cooperative, seated upright in the PCU bed, much more himself, eating without issue. Skin: Not markedly jaundiced in appearance of note, no marked scleral icterus, normal turgor, no icterus, no cyanosis except occasional stage ecchymoses, abrasion. HEENT: AT/NC, EOMI, PERRLA, MMM. Lungs: Mildly diminished, greater bases, poor effort, no rales, ronchi or wheezing. Heart: Regular rate and rhythm; no gallop, rub audible. Abdomen: Soft, NTTP, mild distention but no marked tympany, mildly hyperactive BS Extremities: No cyanosis, no clubbing, mild ankle to distal lam edema. Neurological: Patient awake, alert, oriented as noted, cognitive function suspect now near baseline intact; pupils equally reactive to light and accommodation, cranial nerves grossly normal, moving all 4 extremities, no focal deficits, strength moderately globally decreased Psychiatric: Affect appears fatigued but otherwise improving, normal, no acute evidence of depressive or anxiety feelings. Assessment & Plan Assessment/Plan (1) Acute hepatic encephalopathy: PLAN: Plan The patient is a 79 y/o M w/ PMHx: Hypothyroidism, BPH with obstructive pathology, CKD stage II, Chronic macrocytic anemia, Chronic back pain, Hx Liver cancer per prior chart documentation s/p TACE, EtOH associated cirrhotic liver s/p TIPS, GERD status post J Carlos w/ Hx GI bleed, HTN, HLD, Hx of Diabetes mellitus type II, Hx VTE, Former EtOH abuse, Former tobacco use who presents to the [facility] ED on 11/18/24 with history of altered mental status noted per spouse. #1. Acute Hepatic Encephalopathy with hyperammonemia, hyperbilirubinemia, mild chronic transaminitis complicated and possibly contributed to by #2 with strong history of lactulose noncompliance with underlying chronic alcoholic hepatic cirrhosis now sober complicated by prior liver cancer s/p TACE per prior chart documentation: Admitted to PCU status initially, initial ammonia level 264, T. bili 2.70, D bili 1.59, AST/LT 49/21, initially NPO given unsafe oral intake aside from medication attempts. 11/19/2024 improved clinically, will transition to MS status, reinitiate diet, continue aggressive lactulose regimen, resume Coreg, spironolactone, torsemide, rifaximin home regimen, 11/20/2019 5 repeat ammonia level normalized 37.6. Continue to temporally hold moderate dose trazodone. Encouraged continued sobriety. PT/OT/CM consulted for discharge planning. 11/19/24 change to MS status. If continues to clinically improve potentially could discharge 11/20/2024 but will need to further evaluate #2 is noted as likely could be contributing to this presentation. #2. Possible Acute Complicated Urinary Tract Infection: UA upon ED evaluation remarkable, pending UCx, continue to monitor I/Os, continue IV Rocephin w/ transition as able pending sensitivities and speciation. #3. Hypertension: Continue home regimen including Coreg, Lasix, spironolactone with hold parameters as needed, PRN hydralazine. #4. Hyperlipidemia: Not on statin therapy, likely secondary to underlying liver disease, defer to outpatient. #5. History of Diabetes mellitus type II: Holding Jardiance, hemoglobin A1c noted to be 4.3%, given this will allow broadened cardiac diet and defer Accu- Cheks and insulin sliding scale. #6. Chronic macrocytic anemia: Admission hemoglobin 8.9, MCV 95.6, hemoglobin primarily 7-9 range. Upon admission hospitalist physician obtained iron studies with iron 88, TIBC 193, iron saturation 45.6%, unsaturated IBC 105, ferritin 73. Vitamin B12 2218, serum folic acid 8.37. 11/19/2024 hemoglobin 9.0, MCV 97.2. Initiated and continued on folic acid. #7. Chronic Kidney Disease Stage II per GFR trending: Admission BUN/Cr 27/1.17, GFR 64, baseline renal function primarily 0.7-1.1 although has vacillated. 11/19/2024 BUN/creatinine 25/0.98, GFR 80. #8. GERD with history GI bleed: Status post previous J Carlos, transition from IV PPI to oral regimen. #9. History of VTE: Currently not chronically anticoagulated, will maintain on chemoprophylaxis. #10. Former tobacco use: Encourage continued tobacco cessation. #11. BPH with obstructive pathology: Will continue patient home finasteride regimen #12. Hypothyroidism: Will continue patient on levothyroxine regimen. TSH 2.450 #13. DVT prophylaxis: Heparin. #14. CODE status: Patient MARIANO is his who is present and living will is currently in place per her report. Full Code status. Charges/Coding Visit Charges Inpatient E&M: 68386 [facility] Hosp L3
[2024-11-19 07:50] LABS: AST(SGOT) 48 U/L (<=37); Alanine Aminotransfer ALT/SGPT 18 U/L (<=46); Albumin, Serum 2.1 g/dL (3.4-4.8); Alkaline Phosphatase 178 U/L (40-129); Anion Gap 11 (5-15); BUN 25 mg/dL (4-19); BUN/Creat Ratio 25.6 RATIO (10-20); Calcium,Total 8.5 mg/dL (7.6-11.0); Carbon Dioxide 21.1 mmol/L (21.0-32.0); Chloride 106 mmol/L (98-108); Estimated Creatinine Clearance 69.29 ml/min (50-250); Globulin 3.7 g/dL (2.2-4.2); Glucose 73 mg/dL (70-99); Potassium 3.6 mmol/L (3.3-5.1)
[2024-11-19 07:56] LABS: Differential Indicated SCAN CRITERIA MET
[2024-11-19 08:32] LABS: Anisocytosis 1+
[2024-11-19 09:30] LABS: Ammonia 37.6 umol/L (16-60)
--- NOTE | 2024-11-19 09:56 | CASEMGMT ---
Social Work SW met w/pt in room, reviewed prior level of function and anticipated discharge date. Pt aware is in the hospital, knows it is 2024. Pt states he does not remember coming to the hospital, the last thing he remembers is stringing his weed eater, and woke up here. He states he needs to check w/his on how he ended up here. Pt states he was just at his PCP on . He states he is stilly trying to get his bearings. PCP: [facility] Specialists: Detail Assembler, Orthopedics, Oncology, and Train Brake Operator all through the [place] Preferred Pharmacy: [facility] Insurance: [facility], [place] benefits Prescription Benefit: Yes LNOK: María, . Pt states he has children but does not speak to them. LW/POA: Pt does not have on file, had indicated at admission has not completed these documents, declined further information. Living Arrangements/Prior level of function: Pt lives with his in a single story home with no steps to enter. Pt states is independent with getting to the bathroom, dressing, bathing. He states just took a shower . Pt states is doing the driving now, he used to cook, she is doing the cooking. They have a cleaning person. Pt states he has been falling at home, states in May his legs gave out. Pt states he has a pinched nerve in his back. DME: Grab bars, cane, walker ,blood pressure machine. In the past pt has said he has a glucose monitor, pt states he does not have one, states he is not diabetic. HHC/SNF: history of HHC through the [place]. Pt states he has home health currently, though is unclear if through the [place] or another agency. Pt?s goal: Home SW did call to verify a couple of things as pt is alert and oriented, but not able to fully give SW all of the information--in regard to glucose machine and HHC for example. It does not appear pt was set up for HHC after his last hospital stay here. 's mailbox is full, SW unable to leave a message. SW will continue to follow, will follow up once pt has had PT/OT to make sure that going home is the appropriate d/c plan. DAVON Gastelum
[2024-11-19] MEDS: Heparin Injection (Vial) 5,000 UNIT/ML VIAL 5000 UNIT SC ×2 (10:12→22:00)
[2024-11-19 11:07] VITALS: BP 120/65; PULSE 101; RESP 16; TEMP 36.8; O2SAT 100
[2024-11-19] MEDS: Glucerna Shake 120 ML LIQUID PO ×2 (12:19→17:22)
--- NOTE | 2024-11-19 14:07 | CASEMGMT ---
Social Work SW reviewed PT/OT notes. As per the notes, pt wants to return home. SW attempted to call again, it is still going to voicemail and the mailbox is full, so SW cannot leave messages. SW spoke w/pt again this afternoon. SW asked pt about going to a assisted facility vs returning home. Pt is not sure, wants to speak w/his . He states she should be here this afternoon. SW explained did try to call her but could not leave a message. SW asked again about home health, pt states has HHC but can't remember the agency, the will know. SW will try to speak w/ today when she comes to visit. If pt goes home on Thursday, will try to find out HHC agency Thursday. If pt is still here Thursday, SW will follow up then for HHC vs SNF. DAVON Gastelum
[2024-11-19 17:30] VITALS: BP 113/71; PULSE 96; RESP 16; TEMP 36.7; O2SAT 100
[2024-11-19] MEDS: MELATONIN 3 MG TABLET 12 MG PO (22:00)
[2024-11-19 22:30] VITALS: BP 141/78; PULSE 93; RESP 16; TEMP 36.8; O2SAT 100
[2024-11-20 05:45] LABS: Hematocrit 22.1 % (40-54); Hemoglobin 7.4 g/dL (13.0-16.5); Immature Granulocytes Count 0.040 X10^3/uL (0.0-0.0); Mean Corp Hgb Conc 33.5 g/dL (32-36); Mean Corpuscular Volume 96.1 fL (80-94); Mean Platelet Vol. 9.1 fl (6.2-12.0); NRBC Flagged by Analyzer 0 % (0-5); POSITIVE MORPHOLOGY YES; Platelet Count 103 K/mm3 (150-450); RBC Distribution Width CV 19.1 % (11.6-14.6); RBC Distribution Width SD 66.0 fl (35.1-43.9); Red Blood Count 2.30 M/mm3 (4.6-6.2); White Blood Count 3.3 K/mm3 (4.4-11.0)
[2024-11-20 05:52] VITALS: BMI 26.4
[2024-11-20 06:01] LABS: Differential Indicated SCAN CRITERIA MET
[2024-11-20 06:21] LABS: Ammonia 46.3 umol/L (16-60)
[2024-11-20 06:22] LABS: AST(SGOT) 46 U/L (<=37); Alanine Aminotransfer ALT/SGPT 18 U/L (<=46); Albumin, Serum 2.0 g/dL (3.4-4.8); Alkaline Phosphatase 175 U/L (40-129); Anion Gap 7 (5-15); BUN 22 mg/dL (4-19); BUN/Creat Ratio 22.7 RATIO (10-20); Calcium,Total 8.0 mg/dL (7.6-11.0); Carbon Dioxide 22.6 mmol/L (21.0-32.0); Chloride 109 mmol/L (98-108); Estimated Creatinine Clearance 71.47 ml/min (50-250); Globulin 3.0 g/dL (2.2-4.2); Glucose 109 mg/dL (70-99); Potassium 3.1 mmol/L (3.3-5.1)
--- NOTE | 2024-11-20 06:51 | PN.HOSP_ITS ---
Reason for Visit Chief Complaint: AMS. Subjective Subjective Patient with no acute events overnight per self and per nursing report. He did this morning request potential alteration of timing of lactulose so he is not getting it late in the evening and up during the night having bowel movements. He notes his bowel movements have been pretty liquid and are less formed than previously. Discussed plan for alteration of lactulose timing. Discussed current presentation with hemoglobin decreased down to 7.4 and patient is unsure if his stools have appeared black or if there is been any bright red blood. Discussed plan to discontinue chemoprophylactic heparin and monitor hemoglobin. PT and OT assessments with likely plan for home health but given his hemoglobin decrease discussed plan to continue evaluation with repeat level in the morning and as long as stable follow-up outpatient to which patient is amenable. Patient denies fevers, chills, nausea, emesis, abdominal pain, chest pain or dyspnea. Objective Data Objective Data Vital Signs: Vital Signs Temp Pulse Resp BP Pulse Ox O2 Del Method 98.2 F 93 16 141/78 H 100 Room Air 11/19/24 22:30 11/19/24 22:30 11/19/24 22:30 11/19/24 22:30 11/19/24 22:30 11/19/24 22:30 Oxygen Delivery Method Room Air Weight: 195 lb 1.745 oz Body Mass Index (BMI) 26.4 Intake & Output: Intake and Output for Last 24 Hours 11/18/24 11/19/24 11/20/24 23:59 23:59 23:59 Intake Total 150 / 150 50 / 50 Output Total 1550 / 1550 Balance 150 / 150 -1500 / -1500 Medical Nutrition Assessment Dietitian: Malnutrition Criteria Met Start: 11/19/24 11:40 Freq: Status: Active Protocol: Document 11/19/24 11:40 RMA (Rec: 11/19/24 11:40 RMA [id number]) Nutrition Malnutrition Evidence of Yes Malnutrition Exists Malnutrition (severe Chronic ): Evidenced By Suboptimal Energy Intake (Severe),Weight Loss (Severe), Physical Changes (Moderate) Clinical Problem Chronic Disease or Condition Related Malnutrition Etiology severe protein-calorie malnutrition in the context of chronic disease related to inadequate oral/energy intake and increased energy expenditure Signs/Symptoms as evidenced by ~8% calculated unintentional weight loss x past 2-3 months and PO meeting less than 75% estimated nutrition needs x past 2-3 months; moderate muscle wasting/depletion in the clavicle noted. Status Active Problem Recommendation Dietitian Will change diet to sodium-restricted; FR as needed per Recommendations/ physician. Changes Monitor blood glucose levels and restrict carbohydrates as needed. Will add 120mL glucerna shake 3 times per day w/ medpass as tolerated. Trend weights as PO established with meals and offer additional ONS as needed. Lab / Micro Data 11/20/24 05:30 11/20/24 05:30 Labs: Laboratory Results - last 24 hr 11/19/24 05:34: WBC 3.6 L, RBC 2.53 L, Hgb 9.0 L, Hct 24.6 L, MCV 97.2 H, MCH 35.6 H, MCHC 36.6 H, RDW Std Deviation 64.9 H, RDW Coeff of Vicky 20.7 H, Plt Count 118 L, MPV 9.4, Immature Gran % (Auto) 0.600, Neut % (Auto) 66.6, Lymph % (Auto) 14.6 L, [place] % (Auto) 13.2 H, Eos % (Auto) 3.9, Baso % (Auto) 1.1 H, Absolute Neuts (auto) 2.4, Absolute Lymphs (auto) 0.52 L, Nucleated RBC % 0, Platelet Estimate SLT DEC, Anisocytosis 1+, Ovalocytes 1+, Sodium 138, Potassium 3.6, Chloride 106, Carbon Dioxide 21.1, Anion Gap 11, BUN 25 H, Creatinine 0.98, Estim Creat Clear Calc 69.29, Est GFR (MDRD) Non-Af 80, BUN/Creatinine Ratio 25.6 H, Glucose 73, Calcium 8.5, Phosphorus 3.4, Total Bilirubin 3.04 H, AST 48 H, ALT 18, Alkaline Phosphatase 178 H, Total Protein 5.8 L, Albumin 2.1 L, Globulin 3.7, Albumin/Globulin Ratio 0.6 L 11/19/24 08:55: Ammonia 37.6 11/19/24 10:04: POC Glucose 76 11/20/24 05:30: WBC 3.3 L, RBC 2.30 L, Hgb 7.4 L, Hct 22.1 L, MCV 96.1 H, MCH 32.2 H, MCHC 33.5 D, RDW Std Deviation 66.0 H, RDW Coeff of Vicky 19.1 H, Plt Count 103 L, MPV 9.1, Immature Gran % (Auto) 1.200 H, Neut % (Auto) 55.1, Lymph % (Auto) 20.5, [place] % (Auto) 16.3 H, Eos % (Auto) 6.0 H, Baso % (Auto) 0.9, A bsolute Neuts (auto) 1.8 L, Absolute Lymphs (auto) 0.68 L, Nucleated RBC % 0, Sodium 138, Potassium 3.1 L, Chloride 109 H, Carbon Dioxide 22.6, Anion Gap 7, B UN 22 H, Creatinine 0.95, Estim Creat Clear Calc 71.47, Est GFR (MDRD) Non-Af 83, BUN/Creatinine Ratio 22.7 H, Glucose 109 H, Calcium 8.0, Total Bilirubin 2.04 H, AST 46 H, ALT 18, Alkaline Phosphatase 175 H, Ammonia 46.3, Total Protein 4.9 L, Albumin 2.0 L, Globulin 3.0, Albumin/Globulin Ratio 0.7 L Micro: Microbiology 11/18/24 17:09 Urine, Catheterized Urine Culture - Preliminary Mixed Gram Positive Organisms Rhythm Strip Rhythm Strip: Sinus Rhythm Rate: 95 Ectopy: None Physical Exam Narrative Physical Examination: General: Awake, alert, oriented to self, place, recent events, seated upright in the PCU bed, alert, interactive. Skin: Not markedly jaundiced in appearance of note, no marked scleral icterus, normal turgor, no icterus, no cyanosis except occasional stage ecchymoses, abrasion. HEENT: AT/NC, EOMI, PERRLA, MMM. Lungs: Mildly diminished, greater bases, poor effort, no rales, ronchi or wheezing. Heart: Regular rate and rhythm; no gallop, rub audible. Abdomen: Soft, NTTP, no marked abdominal distention or wave, moderately hyperactive BS. Extremities: No cyanosis, no clubbing, improving edema, still continued mild ankle to distal lam 1-2+ edema. Neurological: Patient awake, alert, oriented as noted, cognitive function suspect now near baseline intact; pupils equally reactive to light and accommodation, cranial nerves grossly normal, moving all 4 extremities, no focal deficits, strength improving, moderately globally decreased. Psychiatric: Affect appears normal, no acute evidence of depressive or anxiety feelings. Assessment & Plan Assessment/Plan (1) Acute hepatic encephalopathy: PLAN: Plan The patient is a 79 y/o M w/ PMHx: Hypothyroidism, BPH with obstructive pathology, CKD stage II, Chronic macrocytic anemia, Chronic back pain, Hx Liver cancer per prior chart documentation s/p TACE, EtOH associated cirrhotic liver s/p TIPS, GERD status post J Carlos w/ Hx GI bleed, HTN, HLD, Hx of Diabetes mellitus type II, Hx VTE, Former EtOH abuse, Former tobacco use who presents [facility] ED on 11/18/24 with history of altered mental status noted per spouse. #1. Acute Hepatic Encephalopathy with hyperammonemia, hyperbilirubinemia, mild chronic transaminitis complicated and possibly contributed to by #2 with strong history of lactulose noncompliance with underlying chronic alcoholic hepatic cirrhosis now sober complicated by prior liver cancer s/p TACE per prior chart documentation: Admitted to PCU status initially, initial ammonia level 264, T. bili 2.70, D bili 1.59, AST/LT 49/21, initially NPO given unsafe oral intake aside from medication attempts. 11/19/2024 improved clinically, transitioned to MS status, reinitiate diet, continued aggressive lactulose regimen, resume Coreg, spironolactone, torsemide, rifaximin home regimen. 11/20/2019 5 repeat ammonia level normalized 37.6->11/20/24 ammonia 46.3. Continued to hold moderate dose trazodone but restarted 11/20/24 given ongoing improvement. Encouraged continued sobriety. PT/OT evaluations with plan for HH on discharge once #2, #6 resolved. #2. Acute GPC Poss Enteroccocal Complicated Urinary Tract Infection: UA upon ED evaluation remarkable, preliminary UCx w/ GPC Poss Enteroccocal but finalization pending, continue to monitor I/Os, continue IV Rocephin w/ transition as able pending sensitivities and speciation. #3. Acute on Chronic macrocytic anemia: Admission hemoglobin 8.9, MCV 95.6, hemoglobin primarily 7-9 range. Upon admission hospitalist physician obtained iron studies with iron 88, TIBC 193, iron saturation 45.6%, unsaturated IBC 105, ferritin 73. Vitamin B12 2218, serum folic acid 8.37. 11/19/2024 hemoglobin 9.0, MCV 97.2. Initiated and continued on folic acid. 11/20/2024 hemoglobin 7.4, MCV 96.1. Patient does have a history of previous J Carlos and GI bleed initially on IV PPI transition back to oral during this presentation. Given hemoglobin drop will discontinue heparin chemoprophylaxis and would plan for repeat 11/21/2024 hemoglobin level and if this is stable and #2 resolved then discharge to home at that time with home health on antibiotic for #2. #4. Hypokalemia: Admission K+ 3.1, recent 11/18/24 magnesium level 2.2 thus repeat deferred, potassium supplementation given, repeat level in AM. #5. Hypertension: Continue home regimen including Coreg, Lasix, spironolactone with hold parameters as needed, PRN hydralazine. #6. Hyperlipidemia: Not on statin therapy, likely secondary to underlying liver disease, defer to outpatient. #7. History of Diabetes mellitus type II: Holding Jardiance, hemoglobin A1c noted to be 4.3%, given this will allow broadened cardiac diet and defer Accu- Cheks and insulin sliding scale. #8. Chronic Kidney Disease Stage II per GFR trending: Admission BUN/Cr 27/1.17, GFR 64, baseline renal function primarily 0.7-1.1 although has vacillated. 11/20/2024 BUN/creatinine 22/0.95, GFR 83. #9. GERD with history GI bleed: Status post previous J Carlos, transition from IV PPI to oral regimen. #10. History of VTE: Currently not chronically anticoagulated, will maintain on chemoprophylaxis. #11. Former tobacco use: Encourage continued tobacco cessation. #12. BPH with obstructive pathology: Will continue patient home finasteride regimen #13. Hypothyroidism: Will continue patient on levothyroxine regimen. TSH 2.450 #14. DVT prophylaxis: Given hemoglobin decrease 11/20/2024 down to 7.4 from prior 9.0 heparin chemoprophylaxis discontinued as noted above. SCDs. #15. CODE status: Patient MARIANO is his who is present and living will is currently in place per her report. Full Code status. Charges/Coding Visit Charges Inpatient E&M: 65902 Subs Hosp L3
[2024-11-20 07:00] LABS: Anisocytosis 1+
[2024-11-20] MEDS: Potassium Chloride Oral Soln 20 MEQ/15 ML UDC 40 MEQ PO (09:38)
[2024-11-20] MEDS: Glucerna Shake 120 ML LIQUID PO ×3 (09:38→17:32)
[2024-11-20 09:49] VITALS: BP 113/58; PULSE 88; RESP 18; TEMP 37.1; O2SAT 100
[2024-11-20 17:34] VITALS: BP 109/66; PULSE 86; RESP 18; TEMP 36.9; O2SAT 100
--- NOTE | 2024-11-20 19:23 | HP.PCM_ITS ---
HPI - General General Date of Admission: 11/18/24 Date of Service: 11/20/24 Chief Complaint: AMS. HPI Narrative BRYSON FLORES, is a 79 M presented via the ED with a complaint of confusion. He has a history of cirrhosis due to alcohol complicated by hepatocellular carcinoma status post TACE procedure and recurrent ascites s/p TIPS procedure. He stated that has stopped drinking. His noticed he was getting more confused, so she brought him to the ED. HE denied any fever, chills, cough, chest pain, palpitations, dizziness, nausea, vomiting or diarrhea. Review of systems is otherwise negative. Vitals were temp of 98.7F, MT of 89, RR of 16 and BP of 154/78. He was saturating at 98% on room air. CBC showed hb of 11.9, wbc of 3.9 and platelets of 140. Chemistry was significant for total bilirubin of 2.0, ammonia has normalized and ALP of 159, with AST of 50. TSH was 4.49. Urinalysis showed no evidence of UTI with negative bacteria and wbc. CT of the brain showed mild atrophy with no visualised acute hemorrhage, infarct or edema. CXR showed a rounded appearing pleural plaque and cardiomegaly. He was admitted to be managed for acute metabolic encephalopathy due to hepatic encephalopathy from noncompliance. His hemoglobin dropped to 9 and then to 7.4 this morning. FORMERLY [facility], [facility] Medical History Cirrhosis of liver Liver cancer Anemia Lumbar stenosis without neurogenic claudication Neck pain Hypothyroidism Cancer Alcohol abuse Hypertension Acute UTI Pancytopenia Diabetes mellitus MRSA (methicillin resistant staph aureus) culture positive GERD (gastroesophageal reflux disease) GI bleed Cirrhosis DVT (deep venous thrombosis) Home Medications ?Medication ?Instructions ?Recorded ?Last Taken ?Type empagliflozin 25 mg tablet 25 mg PO DAILY dm 05/17/22 10/28/23 History (Jardiance) gemfibrozil 600 mg tablet 600 mg PO DAILY unk 05/17/22 10/28/23 History finasteride 5 mg tablet (Proscar) 5 mg PO DAILY ord eredestiny 10/30/23 Unknown History levothyroxine 50 mcg tablet 50 mcg PO DAILY hypothyroi dism 10/30/23 Unknown History (Synthroid) pantoprazole 40 mg tablet,delayed 40 mg PO BID stomach ulcer 10/30/23 Unknown History release (Protonix) torsemide 20 mg tablet [address] order 10/03 12/25 Unknown History trazodone 50 mg tablet 75 mg PO QHS sleep 10/30/23 Unknown History carvedilol 3.125 mg tablet 3.125 mg PO BID htn 5 Unknown History cholecalciferol (vitamin D3) 25 25 mcg PO DAILY suppl 11/18/24 Unknown History mcg (1,000 unit) capsule cyclobenzaprine 10 mg tablet 10 mg PO Q8H muscle spas m 11/18/24 Unknown History gabapentin 800 mg tablet 800 mg PO QHS sleep 11/18/24 Unknown History magnesium oxide 420 mg tablet 420 mg PO BID suppl 11/01 12/26 Unknown History melatonin 3 mg capsule 12 mg PO QHS sleep 11/18/24 Unknown History rifaximin 550 mg tablet 550 mg PO BID meds 11/18/24 Unknown History spironolactone 25 mg tablet 12.5 mg PO DAILY fluid Unknown History tramadol 50 mg tablet 50 mg PO DAILY PRN pain 11/01 12/26 Unknown History Allergy/AdvReac Type Severity Reaction Status Date / Time No Known Allergies Allergy Verified 09/12/24 16:35 Family History Mother Heart disease Father Heart disease Surgical History S/P TIPS (transjugular intrahepatic portosystemic shunt) History of J Carlos fundoplication Social History household members: spouse Smoking Status: Former smoker alcohol intake: former substance use type: does not use ROS Constitutional Constitutional: Denies fatigue, fever(s), poor appetite, weight gain or weight loss Gastrointestinal Gastrointestinal: Denies belching, bloating, change in bowel habits, change in stool character, chewing difficulty, coffee ground emesis, constipation, cramping, diarrhea, dyspepsia, dysphagia, early satiety, excessive flatus, fecal incontinence, heartburn, hematemesis, hematochezia, hemorrhoids, loose stools, melena, nausea, odynophagia, rectal bleeding, tenesmus, vomiting or weight changes Vital Signs Vital Signs Vital Signs: 11/19/24 22:00 11/19/24 22:30 11/20/24 07:52 Temperature 98.2 F Temperature Source Oral Pulse Rate 93 Pulse Strength Normal (2+) Respiratory Rate 16 Blood Pressure 141/78 H Blood Pressure Mean 99 Blood Pressure Source Blood Pressure Position Blood Pressure Location Pulse Ox 100 Oxygen Delivery Method Room Air Room Air 11/20/24 09:49 11/20/24 09:50 11/20/24 17:34 Temperature 98.8 F 98.4 F Temperature Source Oral Oral Pulse Rate 88 86 Pulse Strength Normal (2+) Respiratory Rate 18 18 Blood Pressure 113/58 L 109/66 Blood Pressure Mean 76 80 Blood Pressure Source Monitor Monitor Blood Pressure Position Supine Sitting Blood Pressure Location Left Arm Right Arm Pulse Ox 100 100 Oxygen Delivery Method Room Air Room Air Weight Weight: 195 lb 1.745 oz Body Mass Index (BMI) 26.4 Physical Exam Const alert, oriented x3, no apparent distress and healthy appearing General Appearance: cooperative GI normal to inspection, nondistended, normoactive bowel sounds, soft to palpation, non-tender and non-distended Percussion: normal to percussion Rectal Exam: deferred Results Medical Records Data Medical Nutrition Assessment Dietitian: Malnutrition Criteria Met Start: 11/19/24 11:40 Freq: Status: Active Protocol: Document 11/19/24 11:40 RMA (Rec: 11/19/24 11:40 RMA [id number]) Nutrition Malnutrition Evidence of Yes Malnutrition Exists Malnutrition (severe Chronic ): Evidenced By Suboptimal Energy Intake (Severe),Weight Loss (Severe), Physical Changes (Moderate) Clinical Problem Chronic Disease or Condition Related Malnutrition Etiology severe protein-calorie malnutrition in the context of chronic disease related to inadequate oral/energy intake and increased energy expenditure Signs/Symptoms as evidenced by ~8% calculated unintentional weight loss x past 2-3 months and PO meeting less than 75% estimated nutrition needs x past 2-3 months; moderate muscle wasting/depletion in the clavicle noted. Status Active Problem Recommendation Dietitian Will change diet to sodium-restricted; FR as needed per Recommendations/ physician. Changes Monitor blood glucose levels and restrict carbohydrates as needed. Will add 120mL glucerna shake 3 times per day w/ medpass as tolerated. Trend weights as PO established with meals and offer additional ONS as needed. Lab / Micro Data 11/20/24 05:30 11/20/24 05:30 Labs: Laboratory Results - last 24 hr 11/20/24 05:30: WBC 3.3 L, RBC 2.30 L, Hgb 7.4 L, Hct 22.1 L, MCV 96.1 H, MCH 32.2 H, MCHC 33.5 D, RDW Std Deviation 66.0 H, RDW Coeff of Vicky 19.1 H, Plt Count 103 L, MPV 9.1, Immature Gran % (Auto) 1.200 H, Neut % (Auto) 55.1, Lymph % (Auto) 20.5, [place] % (Auto) 16.3 H, Eos % (Auto) 6.0 H, Baso % (Auto) 0.9, A bsolute Neuts (auto) 1.8 L, Absolute Lymphs (auto) 0.68 L, Nucleated RBC % 0, Anisocytosis 1+, Sodium 138, Potassium 3.1 L, Chloride 109 H, Carbon Dioxide 22.6, Anion Gap 7, BUN 22 H, Creatinine 0.95, Estim Creat Clear Calc 71.47, Est GFR (MDRD) Non-Af 83, BUN/Creatinine Ratio 22.7 H, Glucose 109 H, Calcium 8.0, T otal Bilirubin 2.04 H, AST 46 H, ALT 18, Alkaline Phosphatase 175 H, Ammonia 46.3, Total Protein 4.9 L, Albumin 2.0 L, Globulin 3.0, Albumin/Globulin Ratio 0.7 L Micro: Microbiology 11/18/24 17:09 Urine, Catheterized Urine Culture - Preliminary GPC Poss Enterococcus sp Gram Positive Cocci Rhythm Strip Rhythm Strip: Sinus Rhythm Rate: 95 Ectopy: None Assessment & Plan Assessment/Plan (1) S/P TIPS (transjugular intrahepatic portosystemic shunt): (2) Liver cancer: QUALIFIERS: Liver malignancy type: unspecified primary liver malignancy Qualified Code(s): C22.8 - Malignant neoplasm of liver, primary, unspecified as to type (3) Alcohol abuse: (4) Cirrhosis of liver: QUALIFIERS: Hepatic cirrhosis type: alcoholic cirrhosis Ascites presence: with ascites Qualified Code(s): K70.31 - Alcoholic cirrhosis of liver with ascites (5) Hyperbilirubinemia: (6) Pancytopenia: (7) Acute hepatic encephalopathy: PLAN: Plan 79-year-old male, reports increasing confusion and lethargy over the past few days. His reports that he has been disoriented to time and place, and his speech has become increasingly slurred. The patient's also states he has had several episodes of asterixis (flapping tremors) in his hands. He reports a decrease in appetite and recent constipation. He underwent a Transjugular Intrahepatic Portosystemic Shunt (TIPS) procedure for refractory ascites 5 years prior. He is currently taking lactulose and rifaximin daily for?hepatic encephalopathy prophylaxis. * Labs: * Ammonia level: was elevated and now has normalized. He also takes pain medicine, melatonin and gabapentin which can contribute to tryptophan. This can lead to recurrent hepatic encephalopathy in a patient that is high risk due to his TIPS procedure. * Liver function tests: Elevated AST, ALT, bilirubin consistent with decompensated liver disease and 2:1 AST/ALT ratio is highly suspicious for alcoholic hepatitis. His bilirubin is improving and if it is medication induced injury from alcohol his liver function tests are improving and he would have a low Madrey score that would not indicate the need for steroids. * Electrolytes: WNL (within normal limits). * Creatinine: Elevated (specific value would need to be added from lab results). Plan * Medications: * Continue lactulose, adjusting dosage to achieve 2-3 soft bowel movements daily. * Continue rifaximin. * Consider increasing protein intake gradually, as tolerated. * Diagnostics: * Monitor ammonia levels, * Monitor liver function tests and electrolytes. * Rule out other causes of altered mental status, such as GI bleeding. Patient may need an upper endoscopy as his BUN to creatinine ratio and decreased hemoglobin from 9 --> 7.4 could indicate upper GI bleed * Supportive Care: * Ensure adequate hydration. * Patient education for both the patient and his family regarding symptoms, triggers, and management of HE, including when to seek immediate medical attention. * Follow-up: * Frequent follow-up visits to monitor liver function, cognitive status, and the effectiveness of HE treatments. I am not sure who he follows up with as an outpatient. Charges/Coding Visit Charges Inpatient E&M: 21776 Init Hosp L3
[2024-11-20 21:15] VITALS: BP 107/60; PULSE 86; RESP 17; TEMP 36.6; O2SAT 100
[2024-11-20] MEDS: MELATONIN 3 MG TABLET 12 MG PO (21:23)
[2024-11-20 22:30] VITALS: BP 123/65; PULSE 95; RESP 16; TEMP 36.6; O2SAT 100
--- NOTE | 2024-11-20 23:15 | NURSING ---
Verbal report reveived from Love Solis RN. This RN assuming care at this time.
[2024-11-21] VITALS (13 sets, daily range): BP systolic 92–115; BP diastolic 49–75; PULSE 71–99; RESP 12–18; TEMP 36.5–37.4; O2SAT 95–100; BMI 26.6
--- NOTE | 2024-11-21 01:23 | NURSING ---
Verbal report to Vimal Michael LPN.
[2024-11-21 06:18] LABS: Hematocrit 22.9 % (40-54); Hemoglobin 7.6 g/dL (13.0-16.5); Immature Granulocytes Count 0.050 X10^3/uL (0.0-0.0); Mean Corp Hgb Conc 33.2 g/dL (32-36); Mean Corpuscular Volume 96.6 fL (80-94); Mean Platelet Vol. 9.0 fl (6.2-12.0); NRBC Flagged by Analyzer 0 % (0-5); POSITIVE DIFFERENTIAL YES; Platelet Count 105 K/mm3 (150-450); RBC Distribution Width CV 18.6 % (11.6-14.6); RBC Distribution Width SD 64.2 fl (35.1-43.9); Red Blood Count 2.37 M/mm3 (4.6-6.2); White Blood Count 3.5 K/mm3 (4.4-11.0)
[2024-11-21 06:31] LABS: Prothrombin Time (Protime)PT. 17.8 SECONDS (11.7-14.9)
[2024-11-21 06:32] LABS: Partial Thromboplast Time 41.1 Seconds (24.1-36.2)
[2024-11-21 06:48] LABS: Magnesium 1.7 mg/dL (1.5-2.2)
[2024-11-21 06:49] LABS: Ammonia 48.4 umol/L (16-60)
[2024-11-21 06:52] LABS: AST(SGOT) 49 U/L (<=37); Alanine Aminotransfer ALT/SGPT 19 U/L (<=46); Albumin, Serum 2.0 g/dL (3.4-4.8); Alkaline Phosphatase 188 U/L (40-129); Anion Gap 6 (5-15); BUN 16 mg/dL (4-19); BUN/Creat Ratio 19.8 RATIO (10-20); Calcium,Total 7.8 mg/dL (7.6-11.0); Carbon Dioxide 22.4 mmol/L (21.0-32.0); Chloride 106 mmol/L (98-108); Estimated Creatinine Clearance 83.83 ml/min (50-250); Globulin 3.0 g/dL (2.2-4.2); Glucose 111 mg/dL (70-99); Potassium 3.5 mmol/L (3.3-5.1)
--- NOTE | 2024-11-21 08:48 | CASEMGMT ---
Addendum entered by Cherry Chavez 11/21/24 09:08: Social Work ME TANG Rascon called SW back. She states pt has home based primary care, states that RN, therapy, SW all go in and assess for safety and home needs. She states if pt needs skilled home health they will make a referral. She states Paul will call SW back. SW explained did leave him a message and will just await a return call to find out what they need from [facility] when pt is ready for discharge. DAVON Gastelum Original Note: Social Work SW called ME TANG Rascon, message left inquiring if pt has HHC through the [facility]. SW called pt's in regard to discharge plan. Pt walked 390 feet standby assist with therapy on 11/20/24. is agreeable to pt returning home at discharge. She does confirm pt has home based services through the [facility], she gave the number for the SW with home based services: Paul Terrell, . She states pt was in [facility] a couple of weeks ago and nobody from the home based team would speak w/the SW there however. SW explained will try anyway. then asked what pt is having done today as pt had told her he's having surgery. SW checked w/the wire charger, pt is having an EGD. SW let the know, and that we do not yet know the time. SW let know his RN is busy at the moment but she can call in anytime to speak w/the RN. states understanding. SW called TANG Payton w/the home based program, message left. TANG will continue to follow. DAVON Gastelum
[2024-11-21] MEDS: 0.9% Saline Lock 10 ML Syringe IV (10:37)
--- NOTE | 2024-11-21 14:01 | PCM.PRE.AN2 ---
ASA Classification* ASA Classification ASA Classification: 3 Assessment & Plan Anesthesia* Anesthesia Assessment Anesthesia Assessment: Discussed sedation and/or anesthesia options, risks, benefits, and alternatives with patient/parents/legal guardian/POA. Questions invited. The patient/parents/legal guardian/POA seems to understand and agrees to proceed with anesthesia plan. Reviewed the physical assessment, medical history, allergy history and patient home medications list prior to surgery/procedure/anesthetic and documented any changes. Performed airway and anesthesia risk assessments. Anesthesia Type Anesthesia Type: MAC History Source History Obtained from:: Patient and Chart Anesthesia Focused Assessment* Temperature: 97.9 F Pulse Rate: 95 Blood Pressure: 101/58 Respiratory Rate: 16 Pulse Ox: 99 Oxygen Delivery Method: Room Air Airway Assessment Mouth opens: >3 cm Mallampati Score: I Teeth Condition: Intact (multiple missing teeth) Neck Range of motion (ROM): Full ROM Labs Anesthesia Preop lab: CBC WBC 3.5 K/mm3 (4.4-11.0) L 11/21/24 06:09 11/21/24 RBC 2.37 M/mm3 (4.6-6.2) L 11/21/24 06:09 11/21/24 Hgb 7.6 g/dL (13.0-16.5) L 11/21/24 06:09 11/21/24 Hct 22.9 % (40-54) L 11/21/24 06:09 11/21/24 Plt Count 105 K/mm3 (150-450) L 11/21/24 06:09 11/21/24 CHEMISTRY Potassium 3.5 mmol/L (3.3-5.1) 11/21/24 06:09 11/21/24 Sodium 134 mmol/L (133-145) 11/21/24 06:09 11/21/24 Magnesium 1.7 mg/dL (1.5-2.2) 11/21/24 06:09 11/21/24 Phosphorus 2.8 mg/dL (2.7-4.5) 11/21/24 06:09 11/21/24 BUN 16 mg/dL (4-19) 11/21/24 06:09 11/21/24 Creatinine 0.81 mg/dL (0.70-1.20) 11/21/24 06:09 11/21/24 Glucose 111 mg/dL (70-99) H 11/21/24 06:09 11/21/24 POC Glucose 134 mg/dL (74-106) H 11/21/24 05:58 11/21/24 TSH 2.450 uIU/mL (0.300-4.200) 11/18/24 21:45 11/18/24 COAG PT 17.8 SECONDS (11.7-14.9) H 11/21/24 06:09 11/21/24 Pre-Assessment Diagnosis/Proposed Procedure Planned Operative Procedure(s): EGD Anesthesia History Anesthesia History - senior qa tester: Anesthesia History - senior qa tester Hx Hospitalization Any Problems With Anesthesia No 11/21/24 00:30 Cholinesterase deficiency No 11/21/24 00:30 You/Your Family Experience No 11/21/24 00:30 fever (hyperthermia) with Relationship Recent Exposure to Contagious No 11/21/24 00:30 Disease Does patient have nerve No 11/21/24 00:30 stimulator Patient instructed to have device shut off --Does patient have Pacemaker No 11/21/24 00:30 or ICD? When Was Last Pacemaker Check QUESTION #4 FULL TEXT: You/Your Family Experience fever (hyperthermia) with Anesthesia Last Oral Intake Last Oral intake: Last Oral Intake NPO since 00:00 11/21/24 00:30 Meds taken in AM with sips of No 11/21/24 00:30 water? Meds patient instructed to take am of surgery PONV PONV - senior qa tester: PONV - senior qa tester Female HX of Motion Sickness HX of N/V After Surgery Non-Smoker Duration of Surgery greater than 60 minutes Number of Risk Factors PONV Score Height & Weight Height & Weight: Anesthesia: Height & Weight Height 6 ft 11/19/24 10:28 Weight: 89.2 kg 11/21/24 05:03 Body Mass Index (BMI) 26.6 11/21/24 05:03 Respiratory Assessment Respiratory Assessment - senior qa tester: Respiratory Tract Infection Hx - senior qa tester Hx Respiratory Tract Infection No 11/21/24 00:30 STOP Sleep Apnea STOP Sleep Apnea - senior qa tester: STOP Sleep Apnea - senior qa tester Hx Hypertension No 11/19/24 12:21 Hx Sleep Apnea No 11/18/24 21:24 CPAP BIPAP Do you snore loudly (louder No 11/18/24 21:24 than talking or can be heard Do you often feel tired/ No 11/18/24 21:24 fatigued/ sleepy during daytime? Has anyone observed you stop No 11/18/24 21:24 breathing during sleep? STOP Results Negative 11/18/24 21:24 QUESTION #5 FULL TEXT : Do you snore loudly (louder than talking or can be heard through closed doors)? Tobacco Use History Tobacco Use History - senior qa tester: Tobacco Use History - senior qa tester Tobacco Use Smoking Status Former smoker 11/18/24 21:24 Hx Tobacco Use No 11/18/24 21:24 Years Smoking Packs Smoked per Day Smoking Cessation Date was No - quit smoking greater 11/18/24 21:24 within the last 15 years than 15 years ago Hx Smoking Cessation Date Hx Smoking Cessation No 11/18/24 21:24 Counseling Hematologic Medial History Hematologic Hx - senior qa tester: Hematologic Medical Hx - bracelet maker novelty Hx of Blood Transfusion No 11/18/24 21:24 Hx of Transfusion in last 3 No 11/18/24 21:24 Months Date of Last Transfusion (if within last 3 months) Ever experience any problems No 11/18/24 21:24 with transfusion(s)? Specify any problems Hx of Preganancy in last 3 N/A 11/18/24 21:24 Months Nurse Filling Out Transfusion MGROVE 11/18/24 21:24 & Questions: Date: 11/18/24 11/18/24 21:24 Time: 21:24 11/18/24 21:24 Patient unable to answer at this time (ie. confused, unrespo /Reproduction History /Reproductive History - senior qa tester: /Reproductive Hx- senior qa tester Hx Now No 11/21/24 00:30 Gestational Age (in weeks): EDC: Hx Hx Para Hx Section SAB No 11/21/24 00:30 Active Medications Active Medications: Current Medications Generic Name Dose Route Start Last Admin Trade Name Freq PRN Reason Stop Dose Admin Albuterol Sulfate 2.5 mg 11/19/24 08:12 Albuterol 2.5 Mg/3 Ml Vial.Neb. INHALATION Q2H PRN PRN Dyspnea, wheezing Carvedilol 3.125 mg 11/19/24 17:00 11/21/24 13:43 Carvedilol 3.125 Mg Tablet PO Not Given BIDCM ROSALINDA Protocol Finasteride 5 mg 11/19/24 10:00 11/20/24 09:39 Finasteride 5 Mg Tablet PO 5 mg DAILY ROSALINDA Administration Folic Acid 1 mg 11/20/24 08:00 11/20/24 09:39 Folic Acid 1 Mg Tablet PO 1 mg BREAKFAST ROSALINDA Administration Furosemide 40 mg 11/19/24 10:00 11/20/24 09:38 Furosemide 40 Mg Tablet PO 40 mg DAILY ROSALINDA Administration Gabapentin 800 mg 11/19/24 22:00 11/20/24 21:23 Gabapentin 800 Mg Tablet PO 800 mg QHS ROSALINDA Administration Glucagon 1 mg 11/19/24 08:12 Glucagon 1 Mg/Ml Syringe IM X1 PRN Hypoglycemia Protocol Hydralazine HCl 10 mg 11/19/24 08:12 Hydralazine 20 Mg/Ml Vial IV Q4H PRN PRN SBP > 160 Protocol Ceftriaxone Sodium 1 gm in 50 mls @ 100 mls/hr 11/19/24 10:00 11/21/24 11:07 Rocephin IV Infused Q24 ROSALINDA Infusion Sodium Chloride 250 mls @ 15 mls/hr 11/18/24 20:32 IV .[id number] PRN Saline Flush Sodium Chloride 250 mls @ 15 mls/hr 11/18/24 20:32 IV .[id number] PRN Additional IVPB Infusion Dextrose 250 mls @ 0 mls/hr 11/19/24 08:12 Dextrose 10%-Water IV .Q0M PRN HYPOGLYCEMIA Protocol As Directed Sodium Chloride 1,000 mls @ 15 mls/hr 11/21/24 13:40 IV .Q48H ROSALINDA Lactulose 20 gm 11/20/24 14:00 11/21/24 13:43 Lactulose 20 Gm/30 Ml Udc PO Not Given TID@0600,1400,1800 ROSALINDA Levothyroxine Sodium 50 mcg 11/20/24 06:00 11/21/24 06:19 Levothyroxine 50 Mcg Tablet PO Not Given DAILY@0600 ROSALINDA Melatonin 12 mg 11/19/24 22:00 11/20/24 21:23 Melatonin 3 Mg Tablet PO 12 mg QHS ROSALINDA Administration Nutritional Formula (Lactose Free) 120 ml 11/19/24 12:00 11/21/24 11:58 Glucerna Shake 120 Ml Liquid PO Not Given TIDCM ROSALINDA Ondansetron HCl 4 mg 11/18/24 20:32 Ondansetron 4 Mg/2 Ml Vial IV Q8H PRN PRN NAUSEA/VOMITING Pantoprazole Sodium 40 mg 11/19/24 10:00 11/20/24 21:23 Pantoprazole Sodium 40 Mg Tablet PO 40 mg BID ROSALINDA Administration Prochlorperazine Edisylate 5 mg 11/18/24 20:32 Prochlorperazine 10 Mg/2 Ml Vial IV Q4H PRN PRN Breakthrough Nausea/Vomiting Rifaximin 550 mg 11/19/24 10:00 11/20/24 21:23 Rifaximin 550 Mg Tablet PO 550 mg BID ROSALINDA Administration Sodium Chloride 10 - 40 ml 11/18/24 20:32 11/21/24 10:37 0.9% Saline Lock 10 Ml Syringe IV 10 ml UD PRN Administration SALINE FLUSH Spironolactone 12.5 mg 11/19/24 10:00 11/20/24 09:39 Spironolactone 25 Mg Tablet PO 12.5 mg DAILY ROSALINDA Administration Protocol Tramadol HCl 50 mg 11/19/24 08:10 Tramadol 50 Mg Tablet PO DAILY PRN Pain Score 1-10 PFSH Medical History Cirrhosis of liver Liver cancer Anemia Lumbar stenosis without neurogenic claudication Neck pain Hypothyroidism Cancer Alcohol abuse Hypertension Acute UTI Pancytopenia Diabetes mellitus MRSA (methicillin resistant staph aureus) culture positive GERD (gastroesophageal reflux disease) GI bleed Cirrhosis DVT (deep venous thrombosis) Home Medications ?Medication ?Instructions ?Recorded ?Last Taken ?Type empagliflozin 25 mg tablet 25 mg PO DAILY dm 05/17/22 10/28/23 History (Jardiance) gemfibrozil 600 mg tablet 600 mg PO DAILY unk 05/17/22 10/28/23 History finasteride 5 mg tablet (Proscar) 5 mg PO DAILY md ordered 10/30/23 Unknown History levothyroxine 50 mcg tablet 50 mcg PO DAILY hypothyroidism 10/30/23 Unknown History (Synthroid) pantoprazole 40 mg tablet,delayed 40 mg PO BID stomach ulcer 10/30/23 Unknown History release (Protonix) torsemide 20 mg tablet [address] order 10/30/23 Unknown History trazodone 50 mg tablet 75 mg PO QHS sleep 10/30/23 Unknown History carvedilol 3.125 mg tablet 3.125 mg PO BID htn 11/18/24 Unknown History cholecalciferol (vitamin D3) 25 25 mcg PO DAILY suppl 11/18/24 Unknown History mcg (1,000 unit) capsule cyclobenzaprine 10 mg tablet 10 mg PO Q8H muscle spasm 11/18/24 Unknown History gabapentin 800 mg tablet 800 mg PO QHS sleep 11/18/24 Unknown History magnesium oxide 420 mg tablet 420 mg PO BID suppl 11/18/24 Unknown History melatonin 3 mg capsule 12 mg PO QHS sleep 11/18/24 Unknown History rifaximin 550 mg tablet 550 mg PO BID meds 11/18/24 Unknown History spironolactone 25 mg tablet 12.5 mg PO DAILY fluid 11/18/24 Unknown History tramadol 50 mg tablet 50 mg PO DAILY PRN pain 11/18/24 Unknown History Allergy/AdvReac Type Severity Reaction Status Date / Time No Known Allergies Allergy Verified 09/12/24 16:35 Family History Mother Heart disease Father Heart disease Surgical History S/P TIPS (transjugular intrahepatic portosystemic shunt) History of J Carlos fundoplication Social History household members: spouse Smoking Status: Former smoker alcohol intake: former substance use type: does not use Review of Systems (Anesthesia) ROS Narrative System reviewed and no additional complaints, except as documented.
[2024-11-21] MEDS: 0.9% Normal Saline (1000mL) 1,000 ML 15 ML IV (14:03)
--- NOTE | 2024-11-21 14:29 | OP.CCLET_ITS ---
11/21/2024 [facility] Re : Upper GI endoscopy procedure for [facility] This procedure was performed on Thursday, November 21, 2024. My impressions and recommendations are as follows: Impressions : - Normal esophagus. - Multiple bleeding angiodysplastic lesions in the stomach. Treated with argon plasma coagulation (APC). - A few non-bleeding angioectasias in the duodenum. Treated with argon plasma coagulation (APC). - No specimens collected. Recommendations : - [facility]. - Resume previous diet. - Continue present medications. My findings are described in the full procedure note, which is enclosed. If I can be of further assistance, please feel free to contact me at . Sincerely, Nathaniel Prince, 11/21/2024 2:28:32 PM This report has been signed electronically.
--- NOTE | 2024-11-21 14:29 | OP.EGD_ITS ---
Patient Name: Zackary Mo Procedure Date: 11/21/2024 1:56 PM Date of : 1945 Age: 79 Procedure: Upper GI endoscopy Indications: Unexplained iron deficiency anemia, Heme positive stool, Recent gastrointestinal bleeding, Suspected upper gastrointestinal bleeding Providers: Nathaniel Prince DO Medicines: Monitored Anesthesia Care Patient Profile: This is a 79 year old male. Refer to note in patient chart for documentation of history and physical. Patient has symptoms. Complications: No immediate complications. Procedure: Pre-Anesthesia Assessment: - Prior to the procedure, a History and Physical was performed, and patient medications and allergies were reviewed. The patient is competent. The risks and benefits of the procedure and the sedation options and risks were discussed with the patient. All questions were answered and informed consent was obtained. Patient identification and proposed procedure were verified by the physician in the pre-procedure area. Mental Status Examination: alert and oriented. Airway Examination: normal oropharyngeal airway and neck mobility. Respiratory Examination: clear to auscultation. CV Examination: normal. Prophylactic Antibiotics: The patient does not require prophylactic antibiotics. Prior Anticoagulants: The patient has taken no anticoagulant or antiplatelet agents except for NSAID medication. ASA Grade Assessment: II - A patient with mild systemic disease. After reviewing the risks and benefits, the patient was deemed in satisfactory condition to undergo the procedure. The anesthesia plan was to use monitored anesthesia care (MAC). Immediately prior to administration of medications, the patient was re-assessed for adequacy to receive sedatives. The heart rate, respiratory rate, oxygen saturations, blood pressure, adequacy of pulmonary ventilation, and response to care were monitored throughout the procedure. The physical status of the patient was re-assessed after the procedure. After obtaining informed consent, the endoscope was passed under direct vision. Throughout the procedure, the patient's blood pressure, pulse, and oxygen saturations were monitored continuously. The gastroscope was introduced through the mouth, and advanced to the third part of the duodenum. Small bowel enteroscopy was deemed necessary. The upper GI endoscopy was accomplished without difficulty. The patient tolerated the procedure well. Scope In: 2:17:48 PM Scope Out: 2:24:27 PM Total Procedure Duration Time 0 hours 6 minutes 39 seconds Findings: The examined esophagus was normal. Multiple 5 mm angiodysplastic lesions with bleeding were found in the gastric antrum, in the prepyloric region of the stomach and at the pylorus. Coagulation for hemostasis using argon plasma at 0.3 liters/minute and 20 jennings was successful. Estimated blood loss was minimal. A few 5 mm angioectasias without bleeding were found in the third portion of the duodenum and in the fourth portion of the duodenum. Coagulation for destruction of remaining portion of lesion using argon plasma at 0.3 liters/minute and 30 jennings was successful. Estimated blood loss was minimal. Impression: - Normal esophagus. - Multiple bleeding angiodysplastic lesions in the stomach. Treated with argon plasma coagulation (APC). - A few non-bleeding angioectasias in the duodenum. Treated with argon plasma coagulation (APC). - No specimens collected. Recommendation: - [facility] to [facility]. - Resume previous diet. - Continue present medications. Procedure Code(s): --- Professional --- 15778, Small intestinal endoscopy, enteroscopy beyond second portion of duodenum, not including ileum; with ablation of tumor(s), polyp(s), or other lesion(s) not amenable to removal by hot biopsy forceps, bipolar cautery or snare technique 29319, 59,51, Small intestinal endoscopy, enteroscopy beyond second portion of duodenum, not including ileum; with control of bleeding (eg, injection, bipolar cautery, unipolar cautery, laser, heater probe, stapler, plasma water pump operator) CPT copyright 2021 [employer]. All rights reserved. The codes documented in this report are preliminary and upon corporate banking officer review may be revised to meet current compliance requirements. Nathaniel Prince DO 11/21/2024 2:28:32 PM This report has been signed electronically. Number of Addenda: 0 Note Initiated On: 11/21/2024 1:56 PM
--- NOTE | 2024-11-21 14:37 | PCM.POST.ANE ---
Anesthesia: Postop Eval I Current Vital Signs Temperature: 98.3 F Pulse Rate: 78 Blood Pressure: 95/50 Respiratory Rate: 12 Pulse Ox: 97 Oxygen Delivery Method: Room Air Assessment Airway patent: Yes Spontaneous unlabored respirations: Yes Mental status: Asleep nausea: No Vomiting: No Anesthesia Complication: No Fluid Hydration Crystalloid volume administer (ml): 300 Total IV fluid infused: 300 Progress Note Anesthesia document: Postop Eval 1 completed: Yes
[2024-11-21] MEDS: Glucerna Shake 120 ML LIQUID PO (15:48)
--- NOTE | 2024-11-21 17:52 | PCM.POSTANE2 ---
Anesthesia Postop Eval I Sum Postop Eval Completion status Anesthesia document: Postop Eval 1 completed: Yes Anesthesia Postop Eval I Summary Anesthesia Postop Eval I Summary: Anesthesia Postop Eval I: Assessment Summary Airway patent Yes 11/21/24 14:38 [email or web address] Spontaneous unlabored Yes 11/21/24 14:38 [email or web address] respirations Mental status Asleep 11/21/24 14:38 [email or web address] nausea No 11/21/24 14:38 [email or web address] Vomiting No 11/21/24 14:38 [email or web address] Anesthesia Postop Eval I: Fluid Summary Crystalloid volume administer 300 11/21/24 14:38 [email or web address] (ml) Colloids volume administered ( ml) Blood Product volume administered (ml) Total IV fluid infused 300 11/21/24 14:38 [email or web address] Anesthesia Postop Eval I: Summary Notes Anesthesia Complication No 11/21/24 14:38 [email or web address] Anesthesia Complication Comment: Post-operative progress note Anesthesia: Postop Eval II Evaluation Mental status: Awake and Calm Pain Level: 0 nausea: No Vomiting: No Complications Anesthesia Complication: No
--- NOTE | 2024-11-21 19:31 | PCM.PN.HOSP ---
Reason for Visit Chief Complaint: AMS. Subjective Subjective Patient was seen and examined today, he underwent an EGD today, according to gastroenterology, AVMs were found and treated. Patient asked me if he could be discharged home tonight, I told him that I felt he needed a repeat CBC in the morning and then we would reevaluate him for discharge. Objective Data Objective Data Vital Signs: Vital Signs Temp Pulse Resp BP Pulse Ox O2 Del Method 97.8 F 71 16 110/49 L 99 Room Air 11/21/24 16:00 11/21/24 16:00 11/21/24 16:00 11/21/24 16:00 11/21/24 16:00 11/21/24 16:00 Oxygen Delivery Method Room Air Weight: 89.2 kg Body Mass Index (BMI) 26.6 Intake & Output: Intake and Output for Last 24 Hours 11/19/24 11/20/24 11/21/24 23:59 23:59 23:59 Intake Total 50 / 50 1310 / 1310 1050 / 1050 Output Total 1550 / 1550 275 / 275 601 / 601 Balance -1500 / -1500 1035 / 1035 449 / 449 Medical Nutrition Assessment Dietitian: Malnutrition Criteria Met Start: 11/19/24 11:40 Freq: Status: Active Protocol: Document 11/19/24 11:40 RMA (Rec: 11/19/24 11:40 RMA [id number]) Nutrition Malnutrition Evidence of Yes Malnutrition Exists Malnutrition (severe Chronic ): Evidenced By Suboptimal Energy Intake (Severe),Weight Loss (Severe), Physical Changes (Moderate) Clinical Problem Chronic Disease or Condition Related Malnutrition Etiology severe protein-calorie malnutrition in the context of chronic disease related to inadequate oral/energy intake and increased energy expenditure Signs/Symptoms as evidenced by ~8% calculated unintentional weight loss x past 2-3 months and PO meeting less than 75% estimated nutrition needs x past 2-3 months; moderate muscle wasting/depletion in the clavicle noted. Status Active Problem Recommendation Dietitian Will change diet to sodium-restricted; FR as needed per Recommendations/ physician. Changes Monitor blood glucose levels and restrict carbohydrates as needed. Will add 120mL glucerna shake 3 times per day w/ medpass as tolerated. Trend weights as PO established with meals and offer additional ONS as needed. Lab / Micro Data 11/21/24 06:09 11/21/24 06:09 Labs: Laboratory Results - last 24 hr 11/21/24 05:58: POC Glucose 134 H 11/21/24 06:09: WBC 3.5 L, RBC 2.37 L, Hgb 7.6 L, Hct 22.9 L, MCV 96.6 H, MCH 32.1 H, MCHC 33.2, RDW Std Deviation 64.2 H, RDW Coeff of Vicky 18.6 H, Plt Count 105 L, MPV 9.0, Immature Gran % (Auto) 1.400 H, Neut % (Auto) 64.0, Lymph % (Auto) 14.1 L, [place] % (Auto) 12.7 H, Eos % (Auto) 6.6 H, Baso % (Auto) 1.2 H, Absolute Neuts (auto) 2.2, Absolute Lymphs (auto) 0.49 L, Nucleated RBC % 0, PT 17.8 H, INR 1.4, APTT 41.1 H, Sodium 134, Potassium 3.5, Chloride 106, Carbon Dioxide 22.4, Anion Gap 6, BUN 16, Creatinine 0.81, Estim Creat Clear Calc 83.83, Est GFR (MDRD) Non-Af 91, BUN/Creatinine Ratio 19.8, Glucose 111 H, Calcium 7.8, Phosphorus 2.8, Magnesium 1.7, Total Bilirubin 1.76 H, AST 49 H, ALT 19, Alkaline Phosphatase 188 H, Ammonia 48.4, Total Protein 5.0 L, Albumin 2.0 L, Globulin 3.0, Albumin/Globulin Ratio 0.7 L Micro: Microbiology 11/20/24 18:50 Stool Stool Occult Blood (NANCY) - Final Occult Blood Positive 11/18/24 17:09 Urine, Catheterized Urine Culture - Final Enterococcus faecalis Enterococcus avium Rhythm Strip Rhythm Strip: Sinus Rhythm Rate: 95 Ectopy: None Physical Exam Const alert, oriented x3 and no apparent distress General Appearance: cooperative, well kempt and well developed Orientation / Consciousness: awake, oriented to person, oriented to place and oriented to time HEENT normocephalic, head/scalp atraumatic and moist oral mucous membranes Eyes PERRL, EOMs intact bilaterally and conjunctivae normal Neck supple, no JVD, thyroid normal and no carotid bruits General: trachea midline Resp normal respiratory effort, no retractions, no use of accessory muscles and clear to auscultation bilaterally Auscultation: Negative for rales, rhonchi or wheezes Cardio regular rate, regular rhythm, S1 normal heart sound, S2 normal heart sound, no murmurs, no rub and no gallops GI normal to inspection, nondistended, normoactive bowel sounds, soft to palpation, non-tender and non-distended Extremity no clubbing, cyanosis or edema Skin no rashes or lesions noted General Skin Exam: no breakdown Neuro oriented x3, CN's II-XII intact bilaterally, moves all extremities, no focal motor deficits and no sensory deficits noted Sensorium / Orientation: awake and alert Speech: speech normal Psych affect normal Assessment & Plan Assessment/Plan (1) Acute hepatic encephalopathy: PLAN: Plan 1. Acute hepatic encephalopathy-resolved at this time, continue lactulose and Xifaxan #2 upper GI bleed secondary to AVM hemorrhage-patient remains on a PPI at this time, CBC will be repeated tomorrow #3 cirrhosis of the liver-complicates care, management, recovery, and prognosis #4 hypothyroidism-patient is on Synthroid Total clinical time spent by myself addressing the patient's medical issues, reviewing all of his data, and collaborating with patient's care team: 35-minutes Charges/Coding Visit Charges Inpatient E&M: 01573 Subs Hosp L2
[2024-11-21] MEDS: MELATONIN 3 MG TABLET 12 MG PO (21:58)
[2024-11-22 03:57] VITALS: BMI 27.0
[2024-11-22 04:00] VITALS: BP 95/54; PULSE 54; RESP 16; TEMP 36.7; O2SAT 100
[2024-11-22 06:35] LABS: Hematocrit 20.8 % (40-54); Hemoglobin 7.5 g/dL (13.0-16.5); Immature Granulocytes Count 0.030 X10^3/uL (0.0-0.0); Mean Corp Hgb Conc 36.1 g/dL (32-36); Mean Corpuscular Volume 98.6 fL (80-94); Mean Platelet Vol. 9.2 fl (6.2-12.0); NRBC Flagged by Analyzer 0 % (0-5); POSITIVE DIFFERENTIAL YES; POSITIVE MORPHOLOGY YES; Platelet Count 104 K/mm3 (150-450); RBC Distribution Width CV 20.7 % (11.6-14.6); RBC Distribution Width SD 61.7 fl (35.1-43.9); Red Blood Count 2.11 M/mm3 (4.6-6.2); White Blood Count 4.0 K/mm3 (4.4-11.0)
[2024-11-22 06:38] LABS: Differential Indicated SCAN CRITERIA MET
[2024-11-22 06:46] LABS: AST(SGOT) 52 U/L (<=37); Alanine Aminotransfer ALT/SGPT 18 U/L (<=46); Albumin, Serum 2.0 g/dL (3.4-4.8); Alkaline Phosphatase 195 U/L (40-129); Ammonia 66.4 umol/L (16-60); Anion Gap 6 (5-15); BUN 14 mg/dL (4-19); BUN/Creat Ratio 17.6 RATIO (10-20); Calcium,Total 7.6 mg/dL (7.6-11.0); Carbon Dioxide 21.8 mmol/L (21.0-32.0); Chloride 105 mmol/L (98-108); Estimated Creatinine Clearance 84.88 ml/min (50-250); Globulin 3.0 g/dL (2.2-4.2); Glucose 108 mg/dL (70-99); Potassium 3.6 mmol/L (3.3-5.1)
[2024-11-22 07:08] LABS: Anisocytosis 2+; Differential Comment SCANNED
[2024-11-22 08:38] VITALS: BP 107/62; PULSE 79; RESP 17; TEMP 36.6; O2SAT 97
[2024-11-22 14:00] VITALS: BP 117/71; PULSE 98; RESP 17; TEMP 36.6; O2SAT 99
--- NOTE | 2024-11-22 14:13 | CASEMGMT ---
Social Work Spoke with [facility] SW - Paul Terrell ([phone]). Paul works out of the [employer] office. Reports if patient needs skilled HHC, then the hospitals usually set this up. Otherwise, [facility] will follow up with patient at discharge. Fax to send discharge summary and instructions to [phone], attention Beronica Avilez. Reports patient has 11 hours of CHARGE ENTRY SPECIALIST a week through [facility] - [phone] - to call when patient is discharged. Reviewed therapy notes and patient ambulated 360 feet today, no recommendations for any follow up therapy needs. Plan: SW to follow and assist. [facility]ticip[facility] -KAT Youngblood
--- NOTE | 2024-11-22 15:08 | PCM.DC ---
Discharge Instructions DC O2, CPAP, BIPAP needs Home O2 Discharge instructions: No Dressing / Incision Discharge Activity: Return to Normal Activity Weight Bearing Status: Full weight bearing Follow Up Care Test Results: Test results from this visit will be discussed in further detail at your follow-up appointment, if applicable. 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 Attending Provider: Ruben Greco Primary Care Provider: [facility],[place] Consulting Providers: Brian Garcias; Nona Nunez Discharge Orders/Prescriptions Prescriptions: New lactulose 10 gram/15 mL Solution 20 g PO 2XD Qty: 0 0RF Rx Instructions: 30 mL twice a day, may increase to 30 mL 3 times a day if needed, the goal is to have 4-5 bowel movements per day Continued gemfibrozil 600 mg Tablet 600 mg PO DAILY Jardiance 25 mg Tablet 25 mg PO DAILY levothyroxine [Synthroid] 50 mcg tablet 50 mcg PO DAILY torsemide 20 mg tablet 20 mg PO DAILY trazodone 50 mg tablet 75 mg PO QHS finasteride [Proscar] 5 mg tablet 5 mg PO DAILY pantoprazole [Protonix] 40 mg tablet,delayed release (DR/EC) 40 mg PO BID rifaximin 550 mg tablet 550 mg PO BID gabapentin 800 mg tablet 800 mg PO QHS spironolactone 25 mg tablet 12.5 mg PO DAILY carvedilol 3.125 mg tablet 3.125 mg PO BID Rx Instructions: must administer with a meal/food melatonin 3 mg capsule 12 mg PO QHS magnesium oxide 420 mg tablet 420 mg PO BID cyclobenzaprine 10 mg tablet 10 mg PO Q8H cholecalciferol (vitamin D3) 25 mcg (1,000 unit) capsule 25 mcg PO DAILY tramadol 50 mg tablet 50 mg PO DAILY PRN (Reason: pain) [facility]errals [facility] - Within 1 Month Disposition Disposition (needs filled in before D/C Order can be placed): Home, Self Care
--- NOTE | 2024-11-22 15:25 | PCM.DC.SUM ---
Providers Date of Admission: 11/18/24 Date of Discharge: 11/22/24 Primary Care Physician: [facility] Consultations 11/18/24 20:08 Consult: Gastroenterology Routine Consulting Provider: Ayaan Gastroenterjeanna Reason for Consult: Hepatic encephalopathy EMERGENT Consult: No MD Notified: Yes Date Notified: 11/19/24 Time Notified: 06:48 Method of Notification: Text Reason For Visit: HEPATIC ENCEPHALOPATHY AND UTI Diagnosis Discharge Diagnosis (1) Acute hepatic encephalopathy: Status: Acute Code(s): K76.82 - Hepatic encephalopathy Plan 1. 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-patient remains on a PPI at this time, CBC will be repeated tomorrow #3 cirrhosis of the liver-complicates care, management, recovery, and prognosis #4 hypothyroidism-patient is on Synthroid Total clinical time spent by myself addressing the patient's medical issues, reviewing all of his data, and collaborating with patient's care team: 35-minutes Medications at Discharge Home Medications empagliflozin 25 mg tablet (Jardiance) 25 mg PO DAILY dm 05/17/22 gemfibrozil 600 mg tablet 600 mg PO DAILY unk 05/17/22 finasteride 5 mg tablet (Proscar) 5 mg PO DAILY md ordered 10/30/23 levothyroxine 50 mcg tablet (Synthroid) 50 mcg PO DAILY hypothyroidism 10/30/23 pantoprazole 40 mg tablet,delayed release (Protonix) 40 mg PO BID stomach ulcer 10/30/23 torsemide 20 mg tablet [address] order 10/30/23 trazodone 50 mg tablet 75 mg PO QHS sleep 10/30/23 carvedilol 3.125 mg tablet 3.125 mg PO BID htn 11/18/24 cholecalciferol (vitamin D3) 25 mcg (1,000 unit) capsule 25 mcg PO DAILY suppl 11/18/24 cyclobenzaprine 10 mg tablet 10 mg PO Q8H muscle spasm 11/18/24 gabapentin 800 mg tablet 800 mg PO QHS sleep 11/18/24 magnesium oxide 420 mg tablet 420 mg PO BID suppl 11/18/24 melatonin 3 mg capsule 12 mg PO QHS sleep 11/18/24 rifaximin 550 mg tablet 550 mg PO BID meds 11/18/24 spironolactone 25 mg tablet 12.5 mg PO DAILY fluid 11/18/24 tramadol 50 mg tablet 50 mg PO DAILY PRN pain 11/18/24 lactulose 10 gram/15 mL oral solution 20 g (30 mL) PO 2XD #0 mL 11/22/24 Hospital Course Operations None Procedures EGD Summary of Care Provided Minutes Spent on Discharge: 31 Hospital Course: This 79-year-old white male was seen in the emergency room at [facility] presenting for altered mental status. Patient has a history of liver failure and cirrhosis[facility] family told them that he has been sleepy for the past several days and more confused. Patient had undergone a TIPS procedure about 5 years ago for his cirrhosis and ascites. Labs obtained showed a low white blood cell count at 3.6, hemoglobin was 8.9, BUN was slightly elevated at 27, ammonia level was elevated to 64, bilirubin was 2.7, alkaline phosphatase was 196. Patient's urinalysis showed +3 bacteria but only 5-10 WBCs and 0-5 RBCs. Imaging studies were unremarkable. Patient was admitted to PCU, he was seen in consultation by gastroenterology due to his anemia and placed on lactulose and Xifaxan. Patient underwent an EGD which showed angiodysplastic lesions in the stomach and duodenum, these were treated. Patient's mental status improved, on 11/22/2024, patient was seen and examined: On examination he appeared in good health and spirits. Vital signs as documented. Skin warm and dry and without overt rashes. Neck without JVD, neck was supple, trachea midline, thyroid was normal. Lungs clear bilaterally, normal air movement was noted. Heart exam notable for regular rhythm, normal sounds and absence of murmurs, rubs or gallops. Abdomen unremarkable and without evidence of organomegaly, masses, or abdominal aortic enlargement. Bowel sounds are present, abdomen is not distended. Extremities nonedematous, no cyanosis was noted, no clubbing was noted. Neuro: Cranial nerves II through XII are grossly intact, no focal motor deficits were noted, sensation to light touch and pinprick intact, motor exam 5/5 throughout. Psych: Patient is alert and oriented x3, he does not appear anxious or depressed, he does not appear agitated. It was stressed to the patient that he must be compliant with his lactulose administration, it appears that the [place] [facility] put the wrong directions on his lactulose and the patient was actually taking less than was prescribed. Patient was discharged home in stable condition on 11/22/2024 Medical Records Data Medical Nutrition Assessment Dietitian: Malnutrition Criteria Met Start: 11/19/24 11:40 Freq: Status: Active Protocol: Document 11/19/24 11:40 RMA (Rec: 11/19/24 11:40 RMA [id number]) Nutrition Malnutrition Evidence of Yes Malnutrition Exists Malnutrition (severe Chronic ): Evidenced By Suboptimal Energy Intake (Severe),Weight Loss (Severe), Physical Changes (Moderate) Clinical Problem Chronic Disease or Condition Related Malnutrition Etiology severe protein-calorie malnutrition in the context of chronic disease related to inadequate oral/energy intake and increased energy expenditure Signs/Symptoms as evidenced by ~8% calculated unintentional weight loss x past 2-3 months and PO meeting less than 75% estimated nutrition needs x past 2-3 months; moderate muscle wasting/depletion in the clavicle noted. Status Active Problem Recommendation Dietitian Will change diet to sodium-restricted; FR as needed per Recommendations/ physician. Changes Monitor blood glucose levels and restrict carbohydrates as needed. Will add 120mL glucerna shake 3 times per day w/ medpass as tolerated. Trend weights as PO established with meals and offer additional ONS as needed. Weight / BMI Weight Weight: 90.4 kg Body Mass Index (BMI) 27.0 ABG / Lab / Microbiology Data 11/22/24 06:19 11/22/24 06:19 Laboratory: Laboratory Results - last 24 hr 11/22/24 06:19: WBC 4.0 L, RBC 2.11 L, Hgb 7.5 L, Hct 20.8 L, MCV 98.6 H, MCH 35.5 H, MCHC 36.1 H D, RDW Std Deviation 61.7 H, RDW Coeff of Vicky 20.7 H, Plt Count 104 L, MPV 9.2, Immature Gran % (Auto) 0.800, Neut % (Auto) 68.4, Lymph % (Auto) 11.5 L, [place] % (Auto) 13.5 H, Eos % (Auto) 5.3 H, Baso % (Auto) 0.5, Absolute Neuts (auto) 2.7, Absolute Lymphs (auto) 0.46 L, Nucleated RBC % 0, Differential Comment SCANNED, Anisocytosis 2+, Sodium 133, Potassium 3.6, Chloride 105, Carbon Dioxide 21.8, Anion Gap 6, BUN 14, Creatinine 0.78, Estim Creat Clear Calc 84.88, Est GFR (MDRD) Non-Af 92, BUN/Creatinine Ratio 17.6, Glucose 108 H, Calcium 7.6, Total Bilirubin 1.72 H, AST 52 H, ALT 18, Alkaline Phosphatase 195 H, Ammonia 66.4 H, Total Protein 5.0 L, Albumin 2.0 L, Globulin 3.0, Albumin/Globulin Ratio 0.7 L Microbiology: Microbiology 11/20/24 18:50 Stool Stool Occult Blood (NANCY) - Final Occult Blood Positive 11/18/24 17:09 Urine, Catheterized Urine Culture - Final Enterococcus faecalis Enterococcus avium D/C Instructions Weight Bearing Status: Full weight bearing DC O2, CPAP, BIPAP Needs Home O2 Discharge instructions: No Meaningful Use Info Meaningful Use Meaningful Use Diagnoses (Choose all that apply): None applicable 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 Attending Provider: Ruben Greco Primary Care Provider: [facility],[place] Consulting Providers: Brian Garcias; Nona Nunez Discharge Orders/Prescriptions Prescriptions: New lactulose 10 gram/15 mL Solution 20 g PO 2XD Qty: 0 0RF Rx Instructions: 30 mL twice a day, may increase to 30 mL 3 times a day if needed, the goal is to have 4-5 bowel movements per day Continued gemfibrozil 600 mg Tablet 600 mg PO DAILY Jardiance 25 mg Tablet 25 mg PO DAILY levothyroxine [Synthroid] 50 mcg tablet 50 mcg PO DAILY torsemide 20 mg tablet 20 mg PO DAILY trazodone 50 mg tablet 75 mg PO QHS finasteride [Proscar] 5 mg tablet 5 mg PO DAILY pantoprazole [Protonix] 40 mg tablet,delayed release (DR/EC) 40 mg PO BID rifaximin 550 mg tablet 550 mg PO BID gabapentin 800 mg tablet 800 mg PO QHS spironolactone 25 mg tablet 12.5 mg PO DAILY carvedilol 3.125 mg tablet 3.125 mg PO BID Rx Instructions: must administer with a meal/food melatonin 3 mg capsule 12 mg PO QHS magnesium oxide 420 mg tablet 420 mg PO BID cyclobenzaprine 10 mg tablet 10 mg PO Q8H cholecalciferol (vitamin D3) 25 mcg (1,000 unit) capsule 25 mcg PO DAILY tramadol 50 mg tablet 50 mg PO DAILY PRN (Reason: pain) [facility]errals [facility] - Within 1 Month Disposition Disposition (needs filled in before D/C Order can be placed): Home, Self Care Charges/Coding Visit Charges Inpatient E&M: 84998 Disch Hosp >30min
--- NOTE | 2024-11-22 16:57 | CASEMGMT ---
TARA HOLLIS received script for aquatic therapy. TARA HOLLIS in to discuss with patient and . Patient prefers [facility] and would like [facility] to call patient to schedule appt. Patient and had no further questions or concerns. TARA HOLLIS faxed referral to [facility] with request to call patient to schedule appt. Script placed in discharge packet.
[2024-11-22 17:28] VITALS: BP 122/74; PULSE 79; RESP 18; TEMP 36.8; O2SAT 100
--- NOTE | 2024-11-22 17:37 | PCM.PN.BLA ---
Progress Note Patient not showing any signs or symptoms of encephalopathy. His ammonia continues to be normal. He is tolerating a diet. He had 3 bowel movements today. Physical Exam Const alert, oriented x3, no apparent distress and healthy appearing General Appearance: cooperative GI normal to inspection, nondistended, normoactive bowel sounds, soft to palpation, non-tender and non-distended Percussion: normal to percussion Rectal Exam: deferred Assessment & Plan Assessment/Plan (1) Acute hepatic encephalopathy: PLAN: Plan The patient is a 79 y/o M w/ Hx Liver cancer per prior chart documentation s/p TACE, EtOH associated cirrhotic liver s/p TIPS status post upper endoscopy. 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 His hemoglobin seems to be normal. Acute Hepatic Encephalopathy with hyperammonemia, hyperbilirubinemia, mild chronic transaminitis secondary to the fact that he was only taking lactulose once a day as prescribed on his bottle. He knows he has to take it at least 2 or 3 times a day to maintain 3-4 bowel movements a day. Continue Xifaxan and other medicines as previously prescribed. Visit Charges Inpatient E&M: 05684 [facility] Hosp L3
== END 2024-11-22 17:38 | disposition home or self-care (01) | DRG 441 ==
LOC: ED 19:38 → PCU 20:06
PROVIDERS: Family Medicine; Internal Medicine Gastroenterology; Admitting Provider Internal Medicine; Emergency Provider Emergency Medicine; Visit Provider Internal Medicine
PROC: 0DJ08ZZ Inspection of Upper Intestinal Tract, Via Natural or Artificial Opening Endoscopic (ICD-10-PCS; CPT 43235; principal; 2024-11-21 16:25)
DX: K76.82 Hepatic encephalopathy (principal); E43 Unspecified severe protein-calorie malnutrition; K31.811 Angiodysplasia of stomach and duodenum with bleeding; C22.8 Malignant neoplasm of liver, primary, unspecified as to type; E72.20 Disorder of urea cycle metabolism, unspecified; D61.818 Other pancytopenia; N30.00 Acute cystitis without hematuria; D50.9 Iron deficiency anemia, unspecified; E11.22 Type 2 diabetes mellitus with diabetic chronic kidney disease; K70.31 Alcoholic cirrhosis of liver with ascites; F10.10 Alcohol abuse, uncomplicated; I12.9 Hypertensive chronic kidney disease with stage 1 through stage 4 chronic kidney disease, or unspecified chronic kidney disease; E03.9 Hypothyroidism, unspecified; F32.A Depression, unspecified; E78.5 Hyperlipidemia, unspecified; M19.90 Unspecified osteoarthritis, unspecified site; K21.9 Gastro-esophageal reflux disease without esophagitis; E87.6 Hypokalemia; N18.2 Chronic kidney disease, stage 2 (mild); E78.1 Pure hyperglyceridemia; Z68.26 Body mass index [BMI] 26.0-26.9, adult; Z87.891 Personal history of nicotine dependence; Z86.718 Personal history of other venous thrombosis and embolism; Z79.84 Long term (current) use of oral hypoglycemic drugs; E66.3 Overweight; N40.0 Benign prostatic hyperplasia without lower urinary tract symptoms
CPT/HCPCS: 36415; 51702; 70450; 71045; 80048; 80053; 80076; 80307; 81001; 82077; 82140; 82274; 82607; 82728; 82746; 82803; 82962; 83036; 83540; 83550; 83690; 83735; 84100; 84443; 85025; 85610; 85730; 87077; 87086; 87088; 87186; 93005; 97116; 97162; 97165; 97535; 97802; 97803; 99285; C1889; A4216; J2405

== ENCOUNTER 2024-11-28 11:17 | Emergency (ER) | payer OTHER, SELFPAY ==
[2024-11-28 11:18] VITALS: BP 124/88; PULSE 84; RESP 16; TEMP 35.9; O2SAT 98; BMI 28.7
--- NOTE | 2024-11-28 12:01 | EKG12_ITS ---
Test Reason : Blood Pressure : */* mmHG Vent. Rate : 82 BPM Atrial Rate : 82 BPM P-R Int : 152 ms QRS Dur : 96 ms QT Int : 388 ms P-R-T Axes : 65 59 63 degrees QTcB Int : 453 ms Normal sinus rhythm Normal ECG Confirmed by ALBER KO, GABE ([id number]), story editor JEREMY BELL ([id number]) on 11/29/2024 1:01:35 PM Referred By: Confirmed By: GABE CAMPO MD
--- NOTE | 2024-11-28 12:27 | EX.ED.DYSGE1 ---
HPI History of Present Illness Chief Complaint: Weakness Informant: patient and EMS Narrative Narrative: Patient is 79-year-old male with history of liver cancer, alcohol abuse, liver failure status post TIPS procedure and recent admission for acute hepatic encephalopathy who subsequently developed AVM bleeding while in the hospital. He was discharged on 11/22/2024. He is presenting with worsening swelling especially in his upper arms since discharge. He does have chronic leg swelling and wears compression stockings for this. States he takes his weight daily does not have any change. Also notes has not had a bowel movement in a couple days. I did have a fall couple days ago and sustained regions to his left forearm but denies any other injuries. States he did not hit his head. No report of any fevers, nausea, vomiting. He states he did not get a blood transfusion while in the hospital. Discharge summary from 11/22 reviewed?patient minute for acute hepatic encephalopathy resolved with lactulose and Xifaxan. 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 Remains on PPI therapy. At time of discharge patient was alert and oriented x 3. [facility] Medical History Cirrhosis of liver Liver cancer Anemia Lumbar stenosis without neurogenic claudication Neck pain Hypothyroidism Cancer Alcohol abuse Hypertension Acute UTI Pancytopenia Diabetes mellitus MRSA (methicillin resistant staph aureus) culture positive GERD (gastroesophageal reflux disease) GI bleed Cirrhosis DVT (deep venous thrombosis) Home Medications ?Medication ?Instructions ?Recorded ?Last Taken ?Type empagliflozin 25 mg tablet 25 mg PO DAILY dm 05/17/22 11/27/24 History (Jardiance) gemfibrozil 600 mg tablet 600 mg PO DAILY unk 05/17/22 11/27/24 History finasteride 5 mg tablet (Proscar) 5 mg PO DAILY md ordered 10/30/23 11/27/24 History levothyroxine 50 mcg tablet 50 mcg PO DAILY hypothyroidism 10/30/23 11/27/24 History (Synthroid) pantoprazole 40 mg tablet,delayed 40 mg PO BID stomach ulcer 10/30/23 11/27/24 History release (Protonix) torsemide 20 mg tablet [address] order 10/30/23 11/27/24 History trazodone 50 mg tablet 75 mg PO QHS sleep 10/30/23 11/27/24 History carvedilol 3.125 mg tablet 3.125 mg PO BID htn 11/18/24 11/27/24 History cholecalciferol (vitamin D3) 25 25 mcg PO DAILY suppl 11/18/24 11/27/24 History mcg (1,000 unit) capsule cyclobenzaprine 10 mg tablet 10 mg PO Q8H muscle spasm 11/18/24 11/27/24 History gabapentin 800 mg tablet 800 mg PO QHS sleep 11/18/24 11/27/24 History magnesium oxide 420 mg tablet 420 mg PO BID suppl 11/18/24 11/27/24 History melatonin 3 mg capsule 12 mg PO QHS sleep 11/18/24 11/27/24 History rifaximin 550 mg tablet 550 mg PO BID meds 11/18/24 Unknown History tramadol 50 mg tablet 50 mg PO DAILY PRN pain 11/18/24 Unknown History lactulose 10 gram/15 mL oral 20 g (30 mL) PO 2XD #0 mL 11/22/24 11/28/24 Rx solution spironolactone 25 mg tablet 25 mg PO DAILY fluid #30 tabs 11/28/24 11/27/24 Rx Allergy/AdvReac Type Severity Reaction Status Date / Time No Known Allergies Allergy Verified 09/12/24 16:35 Family History Mother Heart disease Father Heart disease Surgical History S/P TIPS (transjugular intrahepatic portosystemic shunt) History of J Carlos fundoplication Social History household members: spouse Smoking Status: Former smoker alcohol intake: former substance use type: does not use ROS ROS ED Constitutional Constitutional ED: Denies chills or fever(s) Cardiovascular Cardiovascular: Denies chest pain Respiratory/Chest Respiratory/Chest: Denies cough or dyspnea Gastrointestinal Gastrointestinal: Reports constipation; Denies abdominal pain, nausea or vomiting Genitourinary Genitourinary ED: Denies dysuria Musculoskeletal Musculoskeletal: Reports other Details: Edema of the extremities ; Denies arthralgias or myalgias Integumentary Denies rash Psychiatric Psychiatric: Denies anxiety or depression Hematologic/Lymphatic Hematologic/Lymphatic: Reports easy bleeding and easy bruising EXAM Physical Exam Const Vital Signs: 11/28/24 11:18 11/28/24 13:17 11/28/24 15:00 Temperature 96.7 F L Temperature Source Temporal Pulse Rate 84 84 84 Respiratory Rate 16 16 Blood Pressure 124/88 H 110/72 113/57 L Blood Pressure Mean 100 84 75 Pulse Ox 98 100 Oxygen Delivery Method Room Air Room Air Positive well nourished and well developed General Appearance ED: well developed and NAD; Negative for pallor HEENT Reports dry mucous membranes Mouth ED: Yes dry mucous membranes Mouth: dry mucous membranes Eyes PERRL Neck supple and no JVD Chest Wall inspection of chest normal and palpation of chest normal Resp normal respiratory effort Resp Narrative: Mild crackles noted at the right lung base Auscultation: Negative for rhonchi or diminished lung sounds Cardio regular rate and regular rhythm Cardio Narrative: Holosystolic blowing murmur present GI normal to inspection, nondistended, normoactive bowel sounds and non-tender GI Narrative: No fluid wave appreciated, active bowel sounds Palpation: soft; Negative for tender or guarding Extremity Extremity Narrative: Pitting edema of the upper extremities most pronounced in the humerus area bilaterally. He has pain edema up to the knees as well. Neuro Neuro Narrative: Mildly somnolent but arouses easily with verbal stimuli. Answers most questions appropriately. Mentation greatly improved from the last time I saw the patient (on 11/18/2024). No asterixis appreciated. Sensorium / Orientation: alert Psych mental status grossly normal Skin no rashes or lesions noted and no wounds Skin Narrative: Multiple healing skin tears no active bleeding to the left forearm General Skin Exam: Negative for jaundice or pallor MDM MDM MDM Narrative Medical decision making narrative: Patient Biba for decreased stooling as well as increased edema. States he had weeping coming from his right arm. No active oozing appreciated. Differential includes third spacing, fluid overload, symptomatic anemia, hepatic encephalopathy, electrolyte derangement, acute onset of heart failure and severe aortic stenosis, small bowel obstruction, medication noncompliance. Workup shows chronic but stable pancytopenia. Hemoglobin mildly uptrending from 7.5-7.7. Lower suspicion for any acute GI bleeding. CMP largely normal except for mild elevation of AST of 56 and a total bilirubin of 2.06. This is similar to his baseline. Ammonia level is still normal at 51.2. We are switching for acute hepatic encephalopathy. Lipase is normal.-See troponin 16 and then 14. Low suspicion for any acute cardiac process. His BNP is normal at 1052. Low suspicion for acute heart failure. Chest x-ray as well as abdominal x-ray did not show any acute process. Patient is ambulated and does not desaturate. I spoke with Dr. Prince as I suspect patient is third spacing and will just need some diuresis. We will increase his prolactin to 25 mg (previously on 12.5 mg daily) and increase his torsemide from X5 days from 20 to 40 mg. The meantime he will go back to lactulose 3 times a day until having appropriate bowel movements again. and patient agreeable plan of care. Patient given return precautions. Counseled to follow-up with primary care later this week or next week to ensure that he is handling his diuresis appropriately. Lab Data Attestation: I reviewed the patient's lab results. Labs: Laboratory Results - last 24 hr 11/28/24 11/28/24 12:16 14:55 WBC 4.1 L RBC 2.37 L Hgb 7.7 L Hct 22.6 L MCV 95.4 H MCH 32.5 H MCHC 34.1 RDW Std Deviation 66.9 H RDW Coeff of Vicky 19.5 H Plt Count 111 L MPV 9.0 Immature Gran % (Auto) 1.500 H Neut % (Auto) 67.6 Lymph % (Auto) 11.7 L [place] % (Auto) 14.6 H Eos % (Auto) 4.1 Baso % (Auto) 0.5 Absolute Neuts (auto) 2.8 Absolute Lymphs (auto) 0.48 L Nucleated RBC % 0 Differential Comment COMMENT Anisocytosis 1+ PT 18.1 H INR 1.5 Sodium 133 Potassium 3.8 Chloride 104 Carbon Dioxide 21.9 Anion Gap 7 BUN 26 H Creatinine 1.15 Estim Creat Clear Calc 64.64 Est GFR (MDRD) Non-Af 66 BUN/Creatinine Ratio 22.2 H Glucose 111 H Calcium 7.7 Total Bilirubin 2.08 H Direct Bilirubin 1.42 H AST 56 H ALT 23 Alkaline Phosphatase 260 H Ammonia 51.2 Troponin T High Sens 16 Troponin T Hi Sens 2 Hr 14 NT pro BNP II 1052 Total Protein 5.4 L Albumin 2.1 L Globulin 3.3 Lipase 45 Radiography Diagnostic Testing: Clinical Impression(s) from Imaging Studies Abdomen X-Ray 11/28/24 12:30 IMPRESSION: Radiopaque coils with stent are noted in the right upper abdomen. Gallstones are visible. There is gas and stool throughout the colon with a moderate stool load. Reading [facility] Rhythm Strip Rhythm Strip: Sinus Rhythm Rate: 82 Ectopy: None EKG Initial EKG: Attestation: I personally reviewed and interpreted this EKG as follows: Interpretation: Sinus Rhythm Comments: Normal sinus rhythm rate of 82 bpm Normal axis Normal intervals Normal ST segments Management Discussion w/another healthcare provider: Visually Impaired Teacher (GI) Discharge Plan Triage Chief Complaint: Weakness ED Provider: Naz Jenkins Dx/Rx/DC Orders Clinical Impression: Edema, S/P TIPS (transjugular intrahepatic portosystemic shunt), Cirrhosis of liver, Skin tear of left upper extremity Instructions: ED Peripheral Edema, Bilateral Prescriptions: Changed spironolactone 25 mg tablet 25 mg PO DAILY Qty: 30 0RF Rx Instructions: Increase to 1 whole pill daily (25 mg) No Action gemfibrozil 600 mg Tablet 600 mg PO DAILY Jardiance 25 mg Tablet 25 mg PO DAILY levothyroxine [Synthroid] 50 mcg tablet 50 mcg PO DAILY torsemide 20 mg tablet 20 mg PO DAILY trazodone 50 mg tablet 75 mg PO QHS finasteride [Proscar] 5 mg tablet 5 mg PO DAILY pantoprazole [Protonix] 40 mg tablet,delayed release (DR/EC) 40 mg PO BID rifaximin 550 mg tablet 550 mg PO BID gabapentin 800 mg tablet 800 mg PO QHS carvedilol 3.125 mg tablet 3.125 mg PO BID Rx Instructions: must administer with a meal/food melatonin 3 mg capsule 12 mg PO QHS magnesium oxide 420 mg tablet 420 mg PO BID cyclobenzaprine 10 mg tablet 10 mg PO Q8H cholecalciferol (vitamin D3) 25 mcg (1,000 unit) capsule 25 mcg PO DAILY tramadol 50 mg tablet 50 mg PO DAILY PRN (Reason: pain) lactulose 10 gram/15 mL Solution 20 g PO 2XD Qty: 0 0RF Rx Instructions: 30 mL twice a day, may increase to 30 mL 3 times a day if needed, the goal is to have 4-5 bowel movements per day [facility] Care Provider: [facility] Referrals: Friend,DO Nathaniel [Med Staff - Active Staff] - [facility] [Primary Care Provider] - Activity Restrictions/Additional Instructions: Increase to a full pill of spironolactone daily (25 mg). New prescription sent in. For the next 5 days double your dose of your torsemide from 20 mg to 40 mg daily. In addition go back up to taking your lactulose 3 times a day and titrate to having multiple bowel movements a day. Is important you are having at least 2 significant bowel movements daily. I suspect the swelling in the arms is associated with the fluid you recently received on the hospital. You do not have any findings on your workup today consistent with acute heart failure Print Language: Kinyarwanda Disposition Disposition: Home, Self Care
[2024-11-28 12:29] LABS: Hematocrit 22.6 % (40-54); Hemoglobin 7.7 g/dL (13.0-16.5); Immature Granulocytes Count 0.060 X10^3/uL (0.0-0.0); Mean Corp Hgb Conc 34.1 g/dL (32-36); Mean Corpuscular Volume 95.4 fL (80-94); Mean Platelet Vol. 9.0 fl (6.2-12.0); NRBC Flagged by Analyzer 0 % (0-5); POSITIVE DIFFERENTIAL YES; POSITIVE MORPHOLOGY YES; Platelet Count 111 K/mm3 (150-450); RBC Distribution Width CV 19.5 % (11.6-14.6); RBC Distribution Width SD 66.9 fl (35.1-43.9); Red Blood Count 2.37 M/mm3 (4.6-6.2); White Blood Count 4.1 K/mm3 (4.4-11.0)
--- NOTE | 2024-11-28 12:30 | RAD_ITS ---
PROCEDURE: ABD INC DECUB AND/OR ERECT 11/28/2024 REASON FOR EXAM: CONSTIPATION TECHNIQUE: ABD INC DECUB AND/OR ERECT COMPARISON: None FINDINGS: Radiopaque coils with stent are noted in the right upper abdomen. Gallstones are visible. There is gas and stool throughout the colon with a moderate stool load. There is no air-fluid level or dilated small bowel loop identified. There is no visible free air. There is no acute bony abnormality. There is no visible atherosclerosis. RAD/Abd Inc Decub and/or Erect IMPRESSION: Radiopaque coils with stent are noted in the right upper abdomen. Gallstones are visible. There is gas and stool throughout the colon with a moderate stool load. Reading Location: [facility]
--- NOTE | 2024-11-28 12:30 | RAD_ITS ---
PROCEDURE: CHEST PA AND LATERAL 11/28/2024 REASON FOR EXAM: EDEMA TECHNIQUE: CHEST PA AND LATERAL COMPARISON: AP chest of 11/19/2019 FINDINGS: Lungs: Lungs are somewhat hypoinflated, but no gross acute pneumonic process is seen. No findings of significant pulmonary edema are noted.. Hardware: Stable postsurgical changes/metallic densities at the upper abdomen. Heart: Stable appearance, with mildly tortuous aorta noted. No evidence of cardiomegaly Mediastinum: Stable, given differences in technique Bones: Unchanged. Reading Location: [place] [id number]
[2024-11-28 12:32] LABS: Differential Indicated SCAN CRITERIA MET
[2024-11-28 12:39] LABS: Prothrombin Time (Protime)PT. 18.1 SECONDS (11.7-14.9)
[2024-11-28 12:52] LABS: Lipase 45 U/L (13-75)
[2024-11-28 12:54] LABS: AST(SGOT) 56 U/L (<=37); Alanine Aminotransfer ALT/SGPT 23 U/L (<=46); Albumin, Serum 2.1 g/dL (3.4-4.8); Alkaline Phosphatase 260 U/L (40-129); Ammonia 51.2 umol/L (16-60); Anion Gap 7 (5-15); BUN 26 mg/dL (4-19); BUN/Creat Ratio 22.2 RATIO (10-20); Bilirubin, Direct 1.42 mg/dL (0.00-0.30); Calcium,Total 7.7 mg/dL (7.6-11.0); Carbon Dioxide 21.9 mmol/L (21.0-32.0); Chloride 104 mmol/L (98-108); Estimated Creatinine Clearance 64.64 ml/min (50-250); Globulin 3.3 g/dL (2.2-4.2); Glucose 111 mg/dL (70-99); Potassium 3.8 mmol/L (3.3-5.1)
[2024-11-28 13:01] LABS: Anisocytosis 1+
[2024-11-28 13:17] VITALS: BP 110/72; PULSE 84; RESP 16; O2SAT 100
[2024-11-28 13:23] LABS: Pro- Brain NATRIURETIC PEPTIDE 1052 pg/mL (<=1800)
[2024-11-28 13:30] LABS: Troponin T High Sensitivity 16 ng/L (<=22)
[2024-11-28 15:00] VITALS: BP 113/57; PULSE 84
[2024-11-28 15:37] LABS: Troponin T High Sens 2 HR 14 ng/L (<=22)
[2024-11-28 16:32] VITALS: O2SAT 95
[2024-11-28 16:38] LABS: Mucous, Urine 0 SEEN /hpf (<or=2+); Squamous Epithelial Cells - UA 0 SEEN /hpf (0-5)
[2024-11-28 17:00] VITALS: BP 122/76; PULSE 69
[2024-11-28 17:08] LABS: Color, Urine Yellow (Yellow); Glucose, Dipstick Normal (Normal); Ketone-Dipstick Negative (Negative); Leukocyte Esterase-Dipstick Negative /ul (Negative); Nitrite-Dipstick Negative (Negative); Occult Blood-Urine 10 /ul (Negative); Protein-Dipstick 15 mg/dl (Negative); Specific Gravity, Urine 1.015 (1.002-1.030); Urine Bilirubin Dipstick Negative (Negative)
[2024-11-28 17:26] VITALS: BP 122/76; PULSE 84; RESP 16; TEMP 36.6; O2SAT 100
[2024-11-28 17:42] LABS: Red Blood Cells-Urine 0-5 SEEN /hpf (0-5)
== END 2024-11-28 17:27 | disposition home or self-care (01) ==
PROVIDERS: Emergency Provider Emergency Medicine; Visit Provider Emergency Medicine
DX: R53.1 Weakness (principal); K74.60 Unspecified cirrhosis of liver; E11.9 Type 2 diabetes mellitus without complications; I10 Essential (primary) hypertension; Z87.891 Personal history of nicotine dependence; Z85.05 Personal history of malignant neoplasm of liver; E03.9 Hypothyroidism, unspecified; Z79.890 Hormone replacement therapy; K21.9 Gastro-esophageal reflux disease without esophagitis; Z79.899 Other long term (current) drug therapy; R60.9 Edema, unspecified; Z96.89 Presence of other specified functional implants; S41.112A Laceration without foreign body of left upper arm, initial encounter
CPT/HCPCS: 71046; 74019; 80048; 80076; 81001; 82140; 83690; 83880; 84484; 85025; 85610; 93005; 99285; A4216

== ENCOUNTER → 2025-01-05 | Outpatient (CLI) | payer OTHER, SELFPAY ==
[2025-01-05 14:45] LABS: Hematocrit 27.3 % (40-54); Hemoglobin 9.5 g/dL (13.0-16.5); Immature Granulocytes Count 0.060 X10^3/uL (0.0-0.0); Mean Corp Hgb Conc 34.8 g/dL (32-36); Mean Corpuscular Volume 95.8 fL (80-94); Mean Platelet Vol. 10.4 fl (6.2-12.0); NRBC Flagged by Analyzer 0 % (0-5); POSITIVE MORPHOLOGY YES; Platelet Count 106 K/mm3 (150-450); RBC Distribution Width CV 21.4 % (11.6-14.6); RBC Distribution Width SD 71.3 fl (35.1-43.9); Red Blood Count 2.85 M/mm3 (4.6-6.2); White Blood Count 4.9 K/mm3 (4.4-11.0)
[2025-01-05 15:07] LABS: Differential Indicated SCAN CRITERIA MET
[2025-01-05 16:28] LABS: Differential Comment SCANNED
[2025-01-05 16:30] LABS: Anisocytosis 2+
[2025-01-05 16:31] LABS: Polychromasia 1+
== END | disposition home or self-care (01) ==
LOC: PAVLAB 14:06
PROVIDERS: Referring Provider Nurse Practitioner Acute Care; Visit Provider Nurse Practitioner Acute Care
DX: D64.9 Anemia, unspecified (principal)
CPT/HCPCS: 36415; 85025

== ENCOUNTER 2025-02-06 22:46 | Emergency (ER) | payer OTHER, SELFPAY ==
[2025-02-06 22:46] VITALS: BP 106/47; PULSE 117; RESP 28; TEMP 37; O2SAT 98; BMI 27.8
[2025-02-06 22:49] VITALS: BP 106/47; PULSE 117; RESP 28; TEMP 37; O2SAT 99
[2025-02-06 23:07] VITALS: TEMP 37.6
--- NOTE | 2025-02-06 23:17 | EKG12_ITS ---
Test Reason : GENERAL ILLNESS Blood Pressure : */* mmHG Vent. Rate : 113 BPM Atrial Rate : 111 BPM P-R Int : 150 ms QRS Dur : 94 ms QT Int : 350 ms P-R-T Axes : 72 35 61 degrees QTcB Int : 480 ms Sinus tachycardia QTcB >= 480 msec Abnormal ECG Confirmed by ALBER KO, GABE ([id number]), non linear editor JEREMY BELL ([id number]) on 02/08/2025 1:24:20 PM Referred By: DR MENDOZA Confirmed By: GABE CAMPO MD
[2025-02-06 23:32] LABS: Hematocrit 23.6 % (40-54); Hemoglobin 8.5 g/dL (13.0-16.5); Immature Granulocytes Count 0.170 X10^3/uL (0.0-0.0); Mean Corp Hgb Conc 36.0 g/dL (32-36); Mean Corpuscular Volume 97.1 fL (80-94); Mean Platelet Vol. 9.9 fl (6.2-12.0); NRBC Flagged by Analyzer 0 % (0-5); POSITIVE DIFFERENTIAL YES; Platelet Count 105 K/mm3 (150-450); RBC Distribution Width CV 17.0 % (11.6-14.6); RBC Distribution Width SD 59.0 fl (35.1-43.9); Red Blood Count 2.43 M/mm3 (4.6-6.2); White Blood Count 16.9 K/mm3 (4.4-11.0)
[2025-02-06 23:45] VITALS: BP 102/55; BP 97/61; PULSE 112; PULSE 120; RESP 18; RESP 19; TEMP 36.8; O2SAT 100; O2SAT 99
[2025-02-06 23:50] LABS: Lipase 36 U/L (13-75); Magnesium 2.0 mg/dL (1.5-2.2); Pro- Brain NATRIURETIC PEPTIDE 4139 pg/mL (<=1800)
--- NOTE | 2025-02-06 23:50 | RAD_ITS ---
PROCEDURE: CHEST 1 VIEW (PORTABLE) 02/06/2025 REASON FOR EXAM: DYSPNEA TECHNIQUE: Frontal view of the chest. COMPARISON: 11/28/2024 FINDINGS: Slightly elevated right hemidiaphragm is noted. Stable cardiomegaly and aortic calcifications. No effusion. No pneumothorax. No focal consolidation. Right-sided pleural calcifications are again identified. RAD/Chest 1 View (Portable) IMPRESSION: Stable study with no definite acute findings Reading [facility] [id number]
[2025-02-07] VITALS (15 sets, daily range): BP systolic 83–99; BP diastolic 45–83; PULSE 93–112; RESP 16–20; TEMP 36.6–36.8; O2SAT 97–100
[2025-02-07] LABS: AST(SGOT) 96 U/L (<=37); Alanine Aminotransfer ALT/SGPT 36 U/L (<=46); Albumin, Serum 2.1 g/dL (3.4-4.8); Alkaline Phosphatase 313 U/L (40-129); Anion Gap 12 (5-15); BUN 22 mg/dL (4-19); BUN/Creat Ratio 15.6 RATIO (10-20); Bilirubin, Direct 6.46 mg/dL (0.00-0.30); Calcium,Total 7.9 mg/dL (7.6-11.0); Carbon Dioxide 18.0 mmol/L (21.0-32.0); Chloride 92 mmol/L (98-108); Estimated Creatinine Clearance 47.82 ml/min (50-250); Globulin 3.1 g/dL (2.2-4.2); Glucose 82 mg/dL (70-99); Potassium 4.0 mmol/L (3.3-5.1)
[2025-02-07 00:17] LABS: Ammonia 26.9 umol/L (16-60)
[2025-02-07 00:23] LABS: Procalcitonin 3.26 ng/mL (<=0.10)
[2025-02-07 00:46] LABS: Prothrombin Time (Protime)PT. 22.9 SECONDS (11.7-14.9)
[2025-02-07 00:47] LABS: Partial Thromboplast Time 42.5 Seconds (24.1-36.2)
[2025-02-07 00:49] LABS: Mucous, Urine 0 SEEN /hpf (<or=2+)
[2025-02-07 00:51] LABS: Color, Urine Amber (Yellow); Glucose, Dipstick Normal (Normal); Ketone-Dipstick Negative (Negative); Leukocyte Esterase-Dipstick 500 /ul (Negative); Nitrite-Dipstick Negative (Negative); Occult Blood-Urine 250 /ul (Negative); Protein-Dipstick 30 mg/dl (Negative); Specific Gravity, Urine 1.010 (1.002-1.030)
[2025-02-07 00:52] LABS: Urine Bilirubin Dipstick 6 mg/dL (Negative)
[2025-02-07 01:03] LABS: Red Blood Cells-Urine 50-100 SEEN /hpf (0-5); Squamous Epithelial Cells - UA 5-10 SEEN /hpf (0-5)
[2025-02-07] MEDS: 0.9% Normal Saline (1000mL) 1,000 ML 999 ML IV (01:08)
--- NOTE | 2025-02-07 01:15 | CT_ITS ---
PROCEDURE: CT CHEST, ABD, PEL W/CONTRAST 02/07/2025 REASON FOR EXAM: DYSPNEA AND ABD PAIN TECHNIQUE: Chest, abdomen and pelvis CT with intravenous contrast. Coronal and Sagittal reconstruction series were provided. One or more dose reduction techniques were used (e.g., Automated exposure control, adjustment of the mA and/or kV according to patient size, use of iterative reconstruction technique. FINDINGS: CT CHEST: Small bilateral pleural effusions, slightly larger on the right. Bibasilar densities in the posterior aspects of the bilateral lower lobes either represent compressive atelectasis or consolidated airspace infiltrates. A 5 mm nodular density is noted in the right upper lobe (series 6, image 51). Calcified pleural plaque in the right hemithorax. The heart is at the upper limit of normal in size. Mild atherosclerotic calcifications. No thoracic lymphadenopathy. CT ABDOMEN/PELVIS: The liver demonstrates a nodular contour and is small in size, compatible with underlying cirrhosis. Metallic densities within the parenchyma of the liver may represent embolization coils. A tips shunt is in place. Areas of low attenuation within the liver parenchyma likely represent dilated intrahepatic biliary ducts. Multiple calcified gallstones are noted within the gallbladder. A rounded doughnut-shaped foreign body is noted around the fundus of the stomach. Numerous varices are noted within the upper abdomen. No evidence of a bowel obstruction. Several thickened loops of small bowel are noted within the left side of the abdomen, concerning for enteritis. Mild wall thickening of segments of the colon concerning for mild colitis. What appears to be a cortical cyst is noted in the inferior pole of the right kidney. Mild amount of free fluid within the upper abdomen and lower pelvis. No abdominal nor pelvic lymphadenopathy. No acute fracture. [id number] thoracolumbar spondylosis. CT/CT Chest, Abd, Pel w/Contrast IMPRESSION: 1. Small bilateral pleural effusions. 2. Bibasilar densities in the bilateral lower lobes of the lungs, either compr essive atelectasis or consolidated airspace infiltrates. 3. Hepatic cirrhosis. Evidence of portal hypertension including numerous uppe r abdominal varices. 4. Cholelithiasis. 5. Rounded donuts-shaped foreign body around the fundus of the stomach. 6. Several thickened loops of small bowel in the left side of the abdomen, con cerning for enteritis. Mild wall thickening of segments of the colon concerning for mild colitis. Reading Location: [id number]
[2025-02-07] MEDS: Piperacil/Tazobactam 3.375 GM in 0.9% Normal Saline (50mL MB+) 50 ML IV (01:39)
[2025-02-07] MEDS: Vancomycin HCl 1,500 MG in 0.9% Normal Saline (500mL Bag) 500 ML 250 MG IV (02:26)
[2025-02-07] MEDS: Albumin Human 25% (100 mL) 25 GM/100 ML BAG IV (02:43)
[2025-02-07 03:46] LABS: Reflex Lactate? Y
[2025-02-07] MEDS: Lidocaine 2% (20 ml mdv) 20 ML Vial INFILT (04:20)
--- NOTE | 2025-02-07 04:20 | ED.RN ---
[facility] critical care transport team assumed care at this time. Norepinephrine was not administered by this RN but handed off to the transport team for use en route to receiving hospital and scanned in accordingly.
--- NOTE | 2025-02-07 04:26 | EDS_ITS ---
HPI History of Present Illness Chief Complaint: General Illness Informant: patient and spouse/S.O. Narrative Narrative: Patient is a 79-year-old male with longstanding history of alcohol abuse for which he quit off-and-on and has since led to cirrhosis. He also is a past medical history of hypothyroidism and congestive heart failure. Patient and state that he was last admitted to [facility] in December of this year. According to the patient has been having increased fatigue for the last 5 days or so. states that she tried to get him to come a few days ago but he refused. His fatigue is to the point where he is no longer able to ambulate. states that she cannot care for him in this state. Patient also states there has been blood either from his urine or stool he is unsure which. Patient denies any fevers or chills but reports just generalized fatigue/weakness. states she has noticed increased swelling as well and has concern that he may be in a heart failure exacerbation and require IV diuretics. Therefore with his diffuse swelling and increased weakness he was brought in for evaluation [facility] Medical History Cirrhosis of liver Anemia Overweight (BMI 25.0-29.9) Hyperbilirubinemia Pancytopenia Urinary tract infection Acute hepatic encephalopathy Liver cancer Lumbar stenosis without neurogenic claudication Neck pain Hypothyroidism Cancer Alcohol abuse Hypertension Acute UTI Pancytopenia Diabetes mellitus MRSA (methicillin resistant staph aureus) culture positive GERD (gastroesophageal reflux disease) GI bleed Cirrhosis DVT (deep venous thrombosis) Home Medications ?Medication ?Instructions ?Recorded ?Last Taken ?Type empagliflozin 25 mg tablet 25 mg PO DAILY dm 05/17/22 11/27/24 History (Jardiance) Held on 02/06/25. Instructions: low BP gemfibrozil 600 mg tablet 600 mg PO DAILY unk 05/17/22 11/27/24 History finasteride 5 mg tablet (Proscar) 5 mg PO DAILY md pool eredestiny 10/30/23 11/27/24 History levothyroxine 50 mcg tablet 50 mcg PO DAILY hypothyroi dism 10/30/23 11/27/24 History (Synthroid) pantoprazole 40 mg tablet,delayed 40 mg PO BID stomach ulcer 10/30/23 11/27/24 History release (Protonix) torsemide 20 mg tablet [address] truong 11/27/24 History trazodone 50 mg tablet 75 mg PO QHS sleep 10/30/23 11/27/24 History carvedilol 3.125 mg tablet 3.125 mg PO BID htn 5 11/27/24 History Held on 02/06/25. Instructions: low BP cholecalciferol (vitamin D3) 25 25 mcg PO DAILY suppl 11/18/24 11/27/24 History mcg (1,000 unit) capsule gabapentin 800 mg tablet 800 mg PO QHS sleep 11/18/24 11/27/24 History magnesium oxide 420 mg tablet 420 mg PO BID suppl 11/0111/27/24 History melatonin 3 mg capsule 12 mg PO QHS sleep 11/18/24 11/27/24 History rifaximin 550 mg tablet 550 mg PO BID meds 11/18/24 Unknown History lactulose 10 gram/15 mL oral 20 g (30 mL) PO 2XD #0 mL 11/22/24 11/28/24 Rx solution spironolactone 25 mg tablet 25 mg PO QDAY 01/05/25 Unk nown History (Aldactone) Allergy/AdvReac Type Severity Reaction Status Date / Time triazolam (From Halcion) Allergy Severe altered Verified 02/06/25 23:03 mental status adhesive tape AdvReac Mild Rash Verified 02/06/25 23:03 Family History (Updated 01/05/25 @ 13:27 by Felicity Canela) Mother Heart disease Father Heart disease Other Alcoholism Arthritis Colon cancer Myocardial infarction Surgical History S/P TIPS (transjugular intrahepatic portosystemic shunt) History of J Carlos fundoplication Social History household members: spouse Smoking Status: Former smoker alcohol intake: former substance use type: does not use ROS ROS ED Constitutional Constitutional ED: Reports other Details: Positive fatigue ; Denies chills or fever(s) Eyes Eyes: Denies blurry vision or change in vision ENT ENT ED: Denies rhinorrhea or sore throat Cardiovascular Cardiovascular: Reports racing heartbeat; Denies chest pain Respiratory/Chest Respiratory/Chest: Denies cough or dyspnea Gastrointestinal Gastrointestinal: Denies abdominal pain, diarrhea or vomiting Genitourinary Genitourinary ED: Reports hematuria; Denies dysuria Musculoskeletal Musculoskeletal: Reports myalgias Integumentary Denies rash Neurologic Neurologic: Reports weakness; Denies headache(s) Hematologic/Lymphatic Hematologic/Lymphatic: Reports easy bleeding and easy bruising EXAM Physical Exam Const Vital Signs: 02/06/25 22:46 02/06/25 22:49 02/06/25 23:07 Temperature 98.6 F 98.6 F 99.6 F H Temperature Source Oral Oral Axillary Pulse Rate 117 H 117 H Respiratory Rate 28 H 28 H Respiratory Effort Respiratory Pattern Blood Pressure 106/47 L 106/47 L Blood Pressure Mean 66 66 Pulse Ox 98 99 Oxygen Delivery Method Room Air Room Air 02/06/25 23:45 02/06/25 23:45 02/06/25 23:45 Temperature 98.3 F Temperature Source Oral Pulse Rate 120 H 112 H Respiratory Rate 18 19 H Respiratory Effort Normal Non-Labored Respiratory Pattern Normal Blood Pressure 102/55 L 97/61 Blood Pressure Mean 70 73 Pulse Ox 100 99 Oxygen Delivery Method Room Air Room Air 02/07/25 00:22 02/07/25 00:30 02/07/25 00:45 Temperature 98.1 F Temperature Source Oral Pulse Rate 110 H 112 H 110 H Respiratory Rate 18 18 18 Respiratory Effort Respiratory Pattern Blood Pressure 93/53 L 96/63 83/49 L Blood Pressure Mean 66 74 60 Pulse Ox 98 100 99 Oxygen Delivery Method Room Air Room Air Room Air 02/07/25 00:57 02/07/25 01:00 02/07/25 01:32 Temperature 98.2 F Temperature Source Oral Pulse Rate 109 H 109 H 98 Respiratory Rate 18 18 16 Respiratory Effort Respiratory Pattern Blood Pressure 91/52 L 94/60 86/54 L Blood Pressure Mean 65 71 64 Pulse Ox 98 99 97 Oxygen Delivery Method Room Air Room Air Room Air 02/07/25 02:11 02/07/25 02:30 02/07/25 02:45 Temperature Temperature Source Pulse Rate 100 106 H 106 H Respiratory Rate 18 18 18 Respiratory Effort Respiratory Pattern Blood Pressure 88/60 L 89/50 L 94/56 L Blood Pressure Mean 69 63 68 Pulse Ox 100 97 99 Oxygen Delivery Method Room Air Room Air Room Air 02/07/25 03:00 02/07/25 03:15 02/07/25 03:30 Temperature 97.8 F Temperature Source Oral Pulse Rate 105 H 103 H 106 H Respiratory Rate 18 20 H 18 Respiratory Effort Respiratory Pattern Blood Pressure 92/53 L 85/45 L 90/83 H Blood Pressure Mean 66 58 85 Pulse Ox 99 99 99 Oxygen Delivery Method Room Air Room Air Room Air 02/07/25 04:00 02/07/25 04:16 02/07/25 04:30 Temperature 97.9 F Temperature Source Pulse Rate 93 93 93 Respiratory Rate 18 18 18 Respiratory Effort Respiratory Pattern Blood Pressure 92/51 L 91/55 L 99/63 Blood Pressure Mean 64 67 75 Pulse Ox 100 100 99 Oxygen Delivery Method Room Air Room Air Positive well developed and obese Constitutional Narrative: Patient is ill-appearing General Appearance ED: well developed Nutritional Appearance: obese HEENT Reports dry mucous membranes HEENT Narrative: Normocephalic atraumatic No tongue or lip swelling no oral lesions no airway edema or compromise No findings of infection in the posterior pharynx Mucous membranes are dry and tacky Mouth ED: Yes dry mucous membranes Mouth: dry mucous membranes Eyes PERRL and EOMs intact bilaterally General Eye ED: Yes scleral icterus Neck supple Neck Narrative: Bilateral JVD is present No nuchal rigidity or meningeal signs Chest Wall palpation of chest normal Resp Resp Narrative: Patient is tachypneic but otherwise no accessory muscle use nasal flaring or retractions Breath sounds are diminished throughout with crackles in the bilateral bases consistent with history of CHF. Cardio regular rhythm Rate: tachycardic and other Other Details: Tachycardic rate with regular rhythm Frequent ectopic beats are noted GI non-tender, non-distended and no masses GI Narrative: Abdomen is soft and nondistended with hypoactive bowel sounds. There is faint fluid wave noted. No pain with palpation. No voluntary guarding or rigidity or peritoneal signs. No pulsatile mass Auscultation: hypoactive bowel sounds Palpation: soft Extremity Extremity Narrative: +3-4 pitting edema to the bilateral lower extremities that is equal and symmetric Negative Homans' sign bilaterally Patient also has edema noted in bilateral upper extremities consistent with anasarca and CHF exacerbation Neuro oriented x3 and CN's II-XII intact bilaterally Sensorium / Orientation: alert Psych Psych Narrative: Patient has a depressed/flat affect Mood & Affect: depressed Skin Skin Narrative: Skin turgor is increased Patient has diffuse jaundice noted consistent with cirrhosis No overlying soft tissue changes such as erythema warmth induration or fluctuance to suggest cellulitis or abscess Sepsis Attestation Sepsis Alert: Yes Sepsis Attestation: Agree w/Sepsis Possible Source of Sepsis: Unknown Sepsis Organ Dysfunction Criteria Present: Total Bilirubin > 2 mg/dl, INR > 1.5 or aPTT > 60 sec and Lactic Acid > 2 mmol/L Fluid Resuscitation Fluid resuscitation indicated?: Yes Fluid Resuscitation ordered: Lesser volume fluid bolus ordered (Patient has history of congestive heart failure he has pleural effusions on CT scan and signs of anasarca on exam. Therefore only 1 L was provided) Amount of fluid ordered: 1 Reason for lesser fluid bolus:: Concern for fluid overload, Heart failure and Other (Patient also given albumin for volume expansion secondary to history of CHF and volume overload by exam) MDM MDM MDM Narrative Medical decision making narrative: Patient arrived to the ER tachycardic and tachypneic but afebrile. Blood pressure was soft but stable. He reported increased generalized weakness to the point where he was no longer ambulating over the last few days. His history and physical exam is concerning for CHF exacerbation based on anasarca. There is also concern that with the tachycardia and tachypnea the patient is developing sepsis as a cause of his increased fatigue and weakness from potential urinary tract infection spontaneous bacterial peritonitis or pneumonia. Patient also has a history of varices and GI bleed therefore there is concern for acute blood loss anemia or acute kidney injury or electrolyte abnormality. The patient did not have hypoxia and work of breathing was increased but more on the mild scale and therefore I felt no need for supplemental oxygen or BiPAP. Basic labs were obtained and show that his white count which is normally approximately 4-5 is not elevated at 17 there is also a left shift with elevated neutrophil count at 15 and lactic acidosis at 2.6. Based on these changes and his reported weakness as well as tachycardia there is concern he is developing sepsis so therefore blood cultures and urine culture were obtained. His pressure began to worsen and he was started on IV fluid. As his physical exam shows changes consistent with CHF exacerbation/anasarca I was concerned that 30 mL/kg would lead to volume overload and need for BiPAP and/or intubation so therefore only 1 L of fluid was given. Albumin was also ordered for volume expansion with minimal volume resuscitation needed. The patient was from vancomycin and Zosyn with concern for systemic infection. Chest x-ray revealed chronic findings with pulmonary vascular congestion consistent with CHF. Urine sample showed +2 bacteria but there was mild contamination and is unknown if this is truly infection or simply contamination. Therefore CT of the chest abdomen and pelvis were obtained. CT of the chest revealed bilateral pleural effusions consistent with CHF exacerbation and compressive atelectasis versus pneumonia. The CT scan through the abdomen revealed gallstones without findings of acute cholecystitis. The patient's bilirubin was 3.3 on December 19 and now is 9.3. With his leukocytosis and left shift and now increasing elevated liver enzymes and gallstones noted on CT scan there is concern he has developed acute cholecystitis but it is not showing up on CT scan and therefore may require ultrasound and/or HIDA scan or MRCP. The case was discussed with the hospitalist. He feels at this time as the patient receives majority of his care through [facility] that he would benefit from going back there as his medical issues he feels are too complex for this facility. This plan of care was discussed with patient and family and they are agreeable to transfer. The case was discussed with [facility] transfer line and he was accepted to [facility]'s ICU by Dr. Bush. Despite IV fluid resuscitation the patient's blood pressure continued to drop. Therefore central line was placed as documented below and he was started on Levophed. The patient states that despite his significant medical comorbidities he still wishes to be a full code with intubation. Therefore at this time with the patient's persistent hypotension despite fluid resuscitation and complex medical conditions such as heart failure and cirrhosis and now patient having laboratory values and vital signs consistent with sepsis with potentially acute cholecystitis I do feel the safest option is transfer to higher level of care. The patient had a central line placed secondary to persistent hypotension despite fluid resuscitation. The patient's right neck was cleaned and prepped in sterile fashion. The area was cleaned with chlorhexidine. The skin was anesthetized with 5 mL of 1% lidocaine without epinephrine in local fashion. Ultrasound was used to visualize the internal jugular vein. I was able to cannulate the internal jugular vein and there was return of dark red nonpulsatile blood but the guidewire would not thread. The vein was cannulized twice but each time the guidewire would not thread. Therefore I moved to the left neck. It was also cleaned and prepped in sterile fashion. The area was anesthetized with 5 mL of 1% lidocaine without epinephrine in local fashion. The left internal jugular vein was then cannulated and there was return of dark red nonpulsatile blood but the guidewire would not thread either. Therefore I moved to the left groin/femoral vein. The area was cleaned and prepped in sterile fashion with chlorhexidine. The area was anesthetized with 5 mL of 1% lidocaine without epinephrine in local fashion. The ultrasound was used to visualize the femoral vein. The vein was cannulated and there was return of dark red nonpulsatile blood. The guidewire thread without difficulty in this location. The triple-lumen central line was then placed over the guidewire and threaded within the vein. Each port tyson and flushed without difficulty. The area was then covered in a sterile dressing Patient tolerated the procedure well without complication History & Record Review Discussion w/independent historian: Patient and Significant other Lab Data Attestation: I reviewed the patient's lab results. Labs: Laboratory Results - last 24 hr 02/06/25 02/06/25 02/07/25 23:01 23:42 00:43 WBC 16.9 H RBC 2.43 L Hgb 8.5 L Hct 23.6 L MCV 97.1 H MCH 35.0 H MCHC 36.0 RDW Std Deviation 59.0 H RDW Coeff of Vicky 17.0 H Plt Count 105 L MPV 9.9 Immature Gran % (Auto) 1.000 H Neut % (Auto) 91.8 H Lymph % (Auto) 0.8 L [place] % (Auto) 6.3 Eos % (Auto) 0.0 Baso % (Auto) 0.1 Absolute Neuts (auto) 15.5 H Absolute Lymphs (auto) 0.14 L Nucleated RBC % 0 PT 22.9 H INR 2.0 APTT 42.5 H Sodium 122 L Potassium 4.0 Chloride 92 L Carbon Dioxide 18.0 L Anion Gap 12 BUN 22 H Creatinine 1.42 H Estim Creat Clear Calc 47.82 L Est GFR (MDRD) Non-Af 51 L BUN/Creatinine Ratio 15.6 Glucose 82 Lactic Acid 2.6 H* Calcium 7.9 Magnesium 2.0 Total Bilirubin 9.31 H Direct Bilirubin 6.46 H AST 96 H ALT 36 Alkaline Phosphatase 313 H Ammonia 26.9 NT pro BNP II 4139 H Total Protein 5.2 L Albumin 2.1 L Globulin 3.1 Lipase 36 Procalcitonin 3.26 H Urine Color Evangelina Urine Clarity Sl. Cloudy Urine pH 6.0 Ur Specific [place] 1.010 Urine Protein 30 H Urine Glucose (UA) Normal Urine Ketones Negative Urine Occult Blood 250 H Urine Nitrite Negative Urine Bilirubin 6 H Urine Urobilinogen 4 H Ur Leukocyte Esterase 500 H Urine RBC 50-100 SEEN Urine WBC 5-10 SEEN Ur Squamous Epith Cells 5-10 SEEN Ur Renal Epithelial Cell 5-10 SEEN Urine Bacteria 2+ Urine Mucus 0 SEEN Radiography Diagnostic Testing: Clinical Impression(s) from Imaging Studies Chest X-Ray 02/06/25 23:50 IMPRESSION: Stable study with no definite acute findings [id number]en/Pelvis CT 02/07/25 01:15 IMPRESSION: 1. Small bilateral pleural effusions. 2. Bibasilar densities in the bilateral lower lobes of the lungs, either compressive atelectasis or consolidated airspace infiltrates. 3. Hepatic cirrhosis. Evidence of portal hypertension including numerous upper abdominal varices. 4. Cholelithiasis. 5. Rounded donuts-shaped foreign body around the fundus of the stomach. 6. Several thickened loops of small bowel in the left side of the abdomen, concerning for enteritis. Mild wall thickening of segments of the colon concerning for mild colitis. Reading Location: [id number] Chest x-ray as interpreted by the emergency Xie physician reveals cardiomegaly with pulmonary vascular congestion without acute infiltrate or pneumothorax Management Discussion w/another healthcare provider: Segmental Paving Supervisor Critical Care Time Critical Care Time: Yes Critical care time (excluding procedures): Discussing w/Patient &/or Family/Military Exchange Wireless Manager, Discussing w/Consultants, Arranging Admission or Transfer, Performing Direct Patient Care at Bedside and - (Critical care time of 53 minutes) Discharge Plan Triage Chief Complaint: General Illness ED Provider: Mateo Geronimo Dx/Rx/DC Orders Clinical Impression: Sepsis, Cirrhosis, Hypotension, Cholelithiasis, Congestive heart failure, Elevated liver enzymes, Hypothyroidism, Anemia, Acute hyponatremia Prescriptions: No Action spironolactone [Aldactone] 25 mg tablet 25 mg PO QDAY gemfibrozil 600 mg Tablet 600 mg PO DAILY Jardiance 25 mg Tablet 25 mg PO DAILY levothyroxine [Synthroid] 50 mcg tablet 50 mcg PO DAILY torsemide 20 mg tablet 20 mg PO BID trazodone 50 mg tablet 75 mg PO QHS finasteride [Proscar] 5 mg tablet 5 mg PO DAILY pantoprazole [Protonix] 40 mg tablet,delayed release (DR/EC) 40 mg PO BID rifaximin 550 mg tablet 550 mg PO BID gabapentin 800 mg tablet 800 mg PO QHS carvedilol 3.125 mg tablet 3.125 mg PO BID Rx Instructions: must administer with a meal/food melatonin 3 mg capsule 12 mg PO QHS magnesium oxide 420 mg tablet 420 mg PO BID cholecalciferol (vitamin D3) 25 mcg (1,000 unit) capsule 25 mcg PO DAILY lactulose 10 gram/15 mL Solution 20 g PO 2XD Qty: 0 0RF Rx Instructions: 30 mL twice a day, may increase to 30 mL 3 times a day if needed, the goal is to have 4-5 bowel movements per day [facility] [Primary Care Provider, None] Print Language: Amharic Disposition Disposition: Acute Care Hospital Discharge Location: [facility] Discharge Date/Time: 02/07/25 04:40
[2025-02-07] MEDS: Norepinephrine Bit/0.9% NaCl 8 MG/250 ML IV.SOLN 9.4 MG CONT INF (04:38)
--- NOTE | 2025-02-07 05:19 | PCA ---
[facility] WAS [facility], [facility] AND FAXED CHART TO [facility].
== END 2025-02-07 04:40 | disposition short-term general hospital (02) ==
PROVIDERS: Emergency Provider Emergency Medicine; Visit Provider Emergency Medicine
DX: A41.9 Sepsis, unspecified organism (principal); K74.60 Unspecified cirrhosis of liver; I11.0 Hypertensive heart disease with heart failure; I50.9 Heart failure, unspecified; E11.9 Type 2 diabetes mellitus without complications; J90 Pleural effusion, not elsewhere classified; Z87.891 Personal history of nicotine dependence; E87.1 Hypo-osmolality and hyponatremia; K80.00 Calculus of gallbladder with acute cholecystitis without obstruction; E03.9 Hypothyroidism, unspecified; I95.9 Hypotension, unspecified; D64.9 Anemia, unspecified; F32.A Depression, unspecified; Z86.718 Personal history of other venous thrombosis and embolism
CPT/HCPCS: 36556; 71045; 71260; 74177; 80048; 80076; 81001; 82140; 82274; 83605; 83690; 83735; 83880; 84145; 85025; 85610; 85730; 87040; 87086; 87088; 87186; 93005; 96365; 96366; 96367; 99285; P9047; Q9967; A4216; C1751